=== PATIENT | male | born 1945 | race Caucasian/White ===

== ENCOUNTER 2019-06-12 10:04 | Outpatient (CLI) | payer OTHER, SELFPAY ==
--- NOTE | 2019-06-12 11:30 | CT_ITS ---
WS: [id number] CT THORACIC SPINE HISTORY: Thoracic mass TECHNIQUE: Contiguous 2.5 mm axial images are reviewed to thoracic spine. Images are reformatted in s agittal and coronal planes. All CT scans at [facility] use at least one of these dose opt imization techniques: automated exposure control; mA and/or kV adjustment per patient size (includes targeted exams where dose is matched to clinical indication); or iterative reconstruction. DLP: 1162.75 mGycm COMPARISON: None available. Slight increase in thoracic kyphosis. Mild disc space narrowing and desiccation throughout the thorac ic spine. There is mild anterior wedging of T3 and T12. No acute fracture. There is a soft tissue mass extending over a length of 3.3 cm centered at the T8-9 LEFT paravertebral soft tissues with osseous destruction of the rib. Mass extends transversely by 2.0 cm and anterior p osterior by 3.5 cm. Mass begins with bone destruction involving the LEFT posterior T8 vertebral body and extends into the paravertebral soft tissues and involves the LEFT eighth rib with bone destructio n and expansion. Soft tissue mass extends into the T8-9 foramina and inferior to the disc level. Ther e is invasion and destruction of the posterior LEFT lateral T9 vertebral body with soft tissue extend ing into the T9-10 foramina. The LEFT ninth rib is intact. There is destruction of the LEFT T8 and T9 lamina and transverse processes. Mass extends posteriorly into the paravertebral soft tissue. Multilevel mild foraminal narrowing throughout the thoracic spine. No cord compression. Soft tissue t umor extending through the T8-9 and T9-10 LEFT foramen without cord contact. There is a very small am ount of fat the tumor within the T9-T10 foramina from the cord. Significant motion artifact due to breathing and pain. The visualized lungs are clear. No adenopathy is identified. CT/CT thoracic spin wo con* [id number] IMPRESSION: 1. Large destructive, expansile mass centered in the LEFT paravertebral soft t issues and osseous structures about the T8-9 level. Mass measures 3.3 x 2.0 x 3 .5 cm with destruction of the lateral T8 and T9 vertebral bodies, lamina and LE FT transverse processes and the eighth rib. 2. Soft tissue tumor extends into the foramina of T8-9 and T9-10 with near con tact on the lateral thecal sac. Metastatic disease is most likely in this age g roup. Consider renal, thyroid and lung cancer. Plasmacytoma also a possibility. 3. No cord compression at this time. 4. CT-guided biopsy would be possible.
== END 2019-06-12 10:05 | disposition home or self-care (01) ==
PROVIDERS: Family Provider Family Medicine; PCP Family Medicine; Visit Provider Licensed Practical Nurse
DX: C41.2 Malignant neoplasm of vertebral column (principal)
CPT/HCPCS: 72128

== ENCOUNTER 2019-06-14 07:56 | Outpatient (CLI) | payer OTHER, SELFPAY ==
[2019-06-13 11:59] VITALS: BMI 41.4
[2019-06-14] VITALS (9 sets, daily range): BP systolic 134–177; BP diastolic 74–95; PULSE 85–96; RESP 16–18; TEMP 37–37.1; O2SAT 92–98
--- NOTE | 2019-06-14 08:00 | CT_ITS ---
NOTE: Report was unsigned for reason: Order was edited. Original Signature date and time was: 06/14/19 2236 WS: [id number] CT GUIDED BIOPSY LEFT PARASPINAL MASS. HISTORY: malignant neoplasm of vertebral spine Procedure, risks, and complications are explained to the patient. Consent was obtained. Skin is cleansed with ChloraPrep and anesthetized with 1% buffered lidocaine. Patient is monitored as conscious sedation is utilized. Dose: 599.54 mGy-cm. Lesion over the T8-8-9 vertebral body is localized. Dermatome is made. 18-gauge Temno needle is inserted into the paraspinal mass. Multiple core biopsies are obtained. After the third biopsy the lesion started bleeding and no additional biopsies were performed. Specimen placed in sterile saline and sent to pathology. No complications were encountered. Patient will be observed for greater than one hour postprocedure for abnormalities. [facility] CT/CT guided biopsy [id number] IMPRESSION: Uncomplicated CT-guided biopsy of a LEFT paraspinal soft tissue mass. Pathology results are pending.
[2019-06-14] MEDS: sodium chloride 0.9% 1,000 ML 30 ML (08:36)
[2019-06-14 09:15] LABS: INR 0.97 (0.8-1.2); Partial Thromboplastin Time 27.4 SECONDS (23.9-36.7)
[2019-06-14] MEDS: midazolam 1 mg/mL INJ 5 ML IVP ×2 (09:38→09:41)
[2019-06-14] MEDS: HYDROcodone-acetaminophen 10-325 mg Tablet 1 TAB PO (10:35)
== END 2019-06-14 07:57 | disposition home or self-care (01) ==
PROVIDERS: Family Provider Family Medicine; PCP Family Medicine; Visit Provider Licensed Practical Nurse
DX: C41.2 Malignant neoplasm of vertebral column (principal)
CPT/HCPCS: 20225; 36415; 77012; 85610; 85730; 88309; 96374; 96375; 99212; J2250; J3010; J7030

== ENCOUNTER 2019-06-19 09:41 | Outpatient (CLI) | payer OTHER, SELFPAY ==
--- NOTE | 2019-06-19 09:47 | USCV_ITS ---
Chang Carr Age: 74 Gender: M : 1945 Exam Date: 06/19/2019 10:03 Ordering Phys: Thais Sibley Technologist: Ellis Stewart Exam Location: [facility] – [place] Indication: HISTORY: Varicose veins. PROCEDURES: Bilateral duplex Venous Insufficiency study of the Deep and Superficial systems was carried out according to normal protocol with the patient in supine positon for deep system and dependent position for the superficial system. FINDINGS: There is no evidence of bilateral deep vein thrombosis. No evidence of superficial thrombosis in the bilateral saphenous system. No evidence of reflux was noted in the bilateral deep venous system. No venous reflux noted in the RIGHT small saphenous vein. Venous reflux is demonstrated in the RIGHT greater saphenous vein with a spectral Doppler display of greater than 500 milliseconds at the PROX TO BELOW THE KNEE LEVELS No venous reflux noted in the LEFT small saphenous vein. Venous reflux is demonstrated in the LEFT greater saphenous vein with a spectral Doppler display of greater than 500 milliseconds at the PROX TO DIST LEVELS. CONCLUSIONS 1. No DVT in the above-mentioned identifiable veins 2. Significant venous reflux of greater than 500 ms were noted throughout the greater saphenous vein on the right side. The venous segments where greater than 1 cm deep from the surface at the above- knee level. But at the below-knee level, it was the less than 1.0 cm deep. The venous diameter varies anywhere from 0.42 to 0.89 cm. 3. Significant venous reflux of greater than 500 ms were noted in the greater saphenous vein on the left side at the above-knee levels. These venous segments were greater than 1 cm deep from the surface. The venous diameter varies anywhere from 0.65 to 0.77 cm in diameter. 4. No significant refluxes were noted in the deep veins or in the small saphenous venous systems 5. Venous dimensions, depth from the surface and reflux times are as mentioned above. Dr Naomi Samuels MD [facility] (Electronically Signed) Final Date: 21 June 2019 06:05 S
== END 2019-06-19 09:42 | disposition home or self-care (01) ==
LOC: RAD 09:43
PROVIDERS: Family Provider Family Medicine; PCP Family Medicine; Visit Provider Nurse Practitioner Family
DX: I83.813 Varicose veins of bilateral lower extremities with pain (principal); I87.2 Venous insufficiency (chronic) (peripheral)
CPT/HCPCS: 93970

== ENCOUNTER 2019-06-22 08:42 | Outpatient (CLI) | payer OTHER, SELFPAY ==
--- NOTE | 2019-06-22 12:45 | ONC FU_ITS ---
Dr. Arriaza follow up note Patient: Chang Carr Unit #: [id number]: 1945 Dicatated By: Chuy Arriaza M.D.Date of Visit:Jun 22, 2019 Onc Med Follow-up/Prog Note History of Present Illness: Mr. Chang Carr, is a 74-year-old gentleman with history of basal cell carcinoma involving left shoulder and left anterior shoulder status post excision then history of lymphocytic infiltrate of the skin involving dorsum of the right hand possibility of T-cell lymphoma was not excluded, for which he was referred to Dr. Manning , medical oncologist in [place], as per patient special blood test were performed twice on 6 monthly basis and no abnormality was found. And then on 11/21/2017 during his follow-up dermatology exam he was found to have right lateral abdominal skin lesion biopsy was obtained and final pathology report showed changes compatible with lymphocytic infiltration off unknown biological significance. As per patient on 04/16/2019, 1 morning he got up with severe mid back pain and pain was non-radiating type no lower extremity weakness no urine or stool incontinence, no history of trauma to his back patient said he has seen chiropractor 1 time without much help then he was seen by Dr. Osei and MRI scan of spine was ordered but patient could not lay flat on his back so it was rescheduled finally on 05/28/2019 he underwent MRI scan of thoracic spine which showed mass in paraspinal area involving left T9 costovertebral joint, worrisome for neoplastic process/metastasis. And the mass approximates the inferior margin of exiting left T8 nerve root. In effacement of normal fat signal within the left T9-T10 neuroforamen. Suspicious for tumor extension which would affect course of exiting left T9 nerve root. CT scan of thoracic spine was done on 06/12/2019 showed large destructive, expansile mass centered in left paravertebral soft tissue and osseous structures about the T8-9 level. Mass measures 3.3 x 2 x 3.5 cm with a destruction of lateral T8 and T9 vertebral bodies, lamina and left transverse processes and eighth rib. Soft tissue tumor extends into for men of T8-9 and T9-10 with near contact on the lateral thecal sac. 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 Positive for CD20, CD10 (weak) BCL 6, and p63 and Ki-67 90% of the tumor cell positive. Tumor cell negative for CD3, CD5, BCL 2, cyclin D1 and MYC, EB, ER, CD30, And kappa and lambda light chains. Mum 1, CK 7 CK 20, melanin, HMB-45 and TTF-1 ,NAPSIN A and chromogranin No flow cytometry has been done. FISH studies are pending to rule out double hit type lymphoma or to exclude Burkitt's lymphoma. Patient denies any B symptoms like no night sweats, no weight loss, no peripheral lymphadenopathy, no recurrent fevers. Vision denies any hemoptysis or hematemesis, patient denies any melena or hematochezia, patient denies any abdominal fullness, patient denies any lower extremity paresthesia or numbness. Patient has history of chronic lower extremity edema and chronic wounds involving lower extremity above both ankles anteriorly, recently done venous Doppler study on 06/19/2019 showed no evidence of DVT but venous insufficiency Patient has raised multiple skin lesions around left knee, as per patient he underwent biopsy and as per patient it was due to arthritis. Medications: AmLODIPine Besylate 1 Tablet (of 5 mg) Oral daily, Qsagwridkf-GWPT-[id number] 2 Tablet Oral b.i.d., Flonase 2 spray(s) (of 50 mcg/act) Suspension Nasal daily, Furosemide 1 Tablet (of 40 mg) Oral daily, HydroCHLOROthiazide 1 Tablet (of 25 mg) Oral daily, HydrOXYzine Pamoate 1 Capsule (of 25 mg) Oral t.i.d., Losartan Potassium 1 Tablet (of 100 mg) Oral daily, Omeprazole 1 Tablet (of 20 mg) Tablet, enteric coated Oral b.i.d., Venlafaxine HCl ER 1 Capsule (of 150 mg) Capsule SR 24 HR Oral daily Allergies: IV Contrast dye Review of Systems: Constitutional - Appetite is good and weight is stable. No fever, chills, hot flashes, or night sweats. Energy level is good, ENMT - No sinus congestion/drainage. No mouth sores. No sore throat or difficulty swallowing, Hematologic/Lymphatic - No abnormal bruising or bleeding, Respiratory - No shortness of breath. No cough. No pleuritic pain or hemoptysis, Cardiovascular - No angina pain. No palpitations, Gastrointestinal - No nausea or vomiting. No heartburn or acid reflux. No diarrhea or constipation. No blood in the stool or black stools, Genitourinary (M) - No dysuria or hematuria. No urinary frequency. No urgency or incontinence, Musculoskeletal - Positive for back pain, Neurologic - No headache or dizziness. No numbness/paresthesias or other focal neurologic symptoms, Psychiatric - No anxiety or depression. Positive for insomnia. Vital Signs: Performed on Jun 22, 2019 09:27 Height - 70.00 in Weight - 260.8 lbs (HIGH) BSA - 2.34 sq.m BMI - 37.42 (HIGH) Temperature - 97.8 F (LOW) Pulse - 88 /min Respiration - 18 /min BP - 157/74 mm(hg) (HIGH) O2 Sat - 94 % (LOW) Pain - 6 Performance Status: 0 - Fully active, able to carry on all predisease activities without restrictions. (ECOG) Physical Examination: ENMT - No oral exudates, ulcers, masses, thrush or mucositis. Oropharynx clear. Tongue normal, Hematologic/Lymphatic - No petechiae or purpura. No tender or palpable lymph nodes in the cervical, supraclavicular, axillary or inguinal area, Respiratory - Lungs are clear to auscultation without rhonchi or wheezing, Cardiovascular - Regular rate and rhythm of heart, Abdomen - Non-tender, non-distended, Good bowel sounds. No guarding or rebound tenderness. No pulsatile masses, Extremities - 3+ edema bilaterally, raised skin lesion around the left knee. Lab/Imaging: Most recent lab results are not available for this patient. 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 No flow cytometry done. FISH studies to rule out double hit type lymphoma or to exclude Burkitt's lymphoma is pending MRI scan of the thoracic spine done on 2019 showed mass centered left T9 costovertebral joint, worrisome for neoplastic process/metastasis mass approximates the inferior margin of exiting left T8 nerve root. In effacement of normal fat signal within left T9-T10 neuralforamen, suspicious for tumor extension. CT scan of thoracic spine done on 06/12/2019 showed large destructive, expansile mass centered in the left paravertebral soft tissue and osseous structures about T8-9 level. Mass measures 3.3 x 2 x 3.5 cm with destruction of the lateral T8 and T9 vertebral bodies, lamina and left transverse processes and eighth rib. Next Soft tissue tumor extends into the foramina of T8-9 and T9-10 with a near contact on the lateral thecal sac. Mid back pain History of chronic lower extremity edema bilaterally with chronic ulceration involving bilateral ankle anteriorly. Venous Doppler study done on 06/19/2019 showed no evidence of DVT but venous insufficiency. Lymphocytic infiltration of unknown biological significance per skin biopsy from right lateral abdomen done on 11/21/2017 and in the past skin biopsy from dorsum of right hand also showed atypical lymphocytes infiltrates possibilities include T cell lymphoproliferative disorder. No associated B symptoms and peripheral lymphadenopathy Patient has seen medical oncologist Dr. manning in [facility], who did some blood work up twice 6 months apart, as per patient it was negative. History of basal cell carcinoma involving left shoulder status post excision Plan: Discussed with patient regarding his disease status and further plans and treatment options. Patient is in moderate to severe distress due to mid back pain and for the last few weeks has been sleeping in the chair rather than in the bed. But has no neurological signs symptoms. Patient was told that pathology workup is in progress e.g. FISH is pending and we will discuss with case with pathology for confirmation if patient has aggressive form of high-grade B-cell lymphoma e.g. double hit type or Burkitt's then it would be better if he is treated at tertiary care center with intense chemotherapy regimens on the other hand if double hit and Burkitt's lymphoma is ruled out then we will consider systemic therapy here In the meantime we will schedule him for CT PET scan to complete staging workup and also obtain echo to check his ejection fraction In the meantime because of severe pain and patient is in moderate to severe distress we will give him prescription for Percocet he will take 1-2 tablets 4-6 hour as needed and also give him course of high-dose steroids prednisone 100 mg with nystatin swish and spit by mouth daily for 4 days to minimize edema in thoracic spine thus to improve pain and prevent further neurological complication. Patient was advised to avoid trauma or sudden movement and in case he has worsening of pain or urine or stool incontinence or any neurological signs he need to go to emergency room immediately for evaluation. Patient will return to clinic after CT PET scan and echocardiogram for further discussion and we will also consider referred to radiation oncology. Signed By: Chuy Arriaza M.D. <<Signature on File>>
== END 2019-06-22 08:43 | disposition home or self-care (01) ==
PROVIDERS: Family Provider Family Medicine; PCP Family Medicine; Referring Provider Licensed Practical Nurse; Visit Provider Internal Medicine Hematology & Oncology
DX: C85.19 Unspecified B-cell lymphoma, extranodal and solid organ sites (principal); G89.3 Neoplasm related pain (acute) (chronic); I87.2 Venous insufficiency (chronic) (peripheral); R60.0 Localized edema; M19.90 Unspecified osteoarthritis, unspecified site; Z79.899 Other long term (current) drug therapy; Z85.828 Personal history of other malignant neoplasm of skin
CPT/HCPCS: 99214

== ENCOUNTER 2019-06-27 13:19 | Outpatient (RCR) | payer OTHER, SELFPAY ==
--- NOTE | 2019-06-27 13:23 | USCV_ITS ---
Chang Carr Age: 74 Gender: M : 1945 Exam Date: 06/27/2019 13:21 Ordering Phys: Thais Sibley Technologist: Exam Location: [facility] – [place]_ Indication: non healing ulcer RIGHT LEFT Brachial 123.00 mmHg Brachial 125.00 mmHg Pressure (mmHg) Waveform Pressure (mmHg) Waveform 155.00 Above Knee 170.00 163.00 Below Knee 160.00 173.00 [employer] 170.00 147.00 DPA 146.00 1.38 Ankle/Brachial Index 1.36 144.00 Pre-Exercise Toe Pressure 124.00 1.15 Pre-Exercise Toe/Brachial Index 0.99 FINDINGS Supernormal resting ABIs bilaterally Normal TBIs bilaterally Normal PVR waveforms bilaterally CONCLUSIONS No evidence of any significant arterial obstruction, based on the above findings. Dr Naomi Samuels MD [facility] (Electronically Signed) Final Date: 28 June 2019 08:20 S
== END 2019-07-10 23:59 | disposition home or self-care (01) ==
LOC: RAD 13:19
PROVIDERS: Family Provider Family Medicine; PCP Family Medicine; Visit Provider Nurse Practitioner Family
DX: M79.605 Pain in left leg (principal); M79.604 Pain in right leg; I87.2 Venous insufficiency (chronic) (peripheral); L97.822 Non-pressure chronic ulcer of other part of left lower leg with fat layer exposed; Z51.89 Encounter for other specified aftercare; I10 Essential (primary) hypertension; E11.9 Type 2 diabetes mellitus without complications; M19.90 Unspecified osteoarthritis, unspecified site
CPT/HCPCS: 93923; 99204; 99212; A6545; G0463

== ENCOUNTER 2019-07-03 09:42 | Outpatient (CLI) | payer OTHER, SELFPAY ==
--- NOTE | 2019-07-03 10:03 | USCV_ITS ---
Chang Carr Age: 74 Gender: M : 1945 Exam Date: 07/03/2019 10:30 Ordering Phys: Chuy Arriaza MD Technologist: Ellis Stewart [place] [facility] [place]: BASELINE FOR HIGH RISK MED BP: 125 / 74 HR: 77 Rhythm: Sinus Technical Quality: Fair MEASUREMENTS (Male / Female) Normal Values 2D ECHO LV Diastolic Diameter PLAX 4.8 cm 4.2 - 5.9 / 3.9 - 5.3 cm LV Systolic Diameter PLAX 2.5 cm IVS Diastolic Thickness 1.1 cm 0.6 - 1.0 / 0.6 - 0.9 cm IVS Systolic Thickness 1.4 cm LVPW Diastolic Thickness 1.1 cm 0.6 - 1.0 / 0.6 - 0.9 cm LVPW Systolic Thickness 1.2 cm LVOT Diameter 2.3 cm LV Ejection Fraction 2D Teich 79.6 % LV Ejection Fraction MOD 2C 42.3 % LV Ejection Fraction 2C AL 40.0 % LA Diameter 4.4 cm LA Width 4.2 cm LA Height 5.0 cm RA Width 3.5 cm RA Height 4.6 cm Aorta at Sinotubular Diameter 3.3 cm M-MODE LV Diastolic Diameter MM 5.6 cm 4.2 - 5.9 / 3.9 - 5.3 cm LV Systolic Diameter MM 3.6 cm LV Ejection Fraction MM Teich 65.7 % IVS Diastolic Thickness MM 1.1 cm 0.6 - 1.0 / 0.6 - 0.9 cm IVS Systolic Thickness MM 1.7 cm LVPW Diastolic Thickness MM 1.6 cm 0.6 - 1.0 / 0.6 - 0.9 cm LVPW Systolic Thickness MM 1.8 cm RV Diastolic Diameter MM 1.8 cm Aortic Annulus Diameter 3.7 cm LA Ao Ratio MM 1.2 MV E Point Septal Separation 1.6 cm DOPPLER AV Peak Velocity 147.0 cm/s LVOT Peak Velocity 94.0 cm/s AV Area Cont Eq vti 3.2 cm squared AV Area Cont Eq pk 2.6 cm squared MV Area PHT 5.0 cm squared Mitral E to A Ratio 0.8 MV E' Velocity 11.0 cm/s Mitral E to MV E' Ratio 8.3 Mitral E to LV E' Lateral Ratio 6.8 Mitral E to LV E' Septal Ratio 10.7 TR Peak Velocity 277.0 cm/s TR Peak Gradient 30.6 mmHg TV Peak E Velocity 90.0 cm/s Right Atrial Pressure 3.0 mmHg Pulmonary Artery Systolic Pressu 33.7 mmHg PV Peak Velocity 85.0 cm/s FINDINGS Left Ventricle Normal left ventricular size and systolic function, EF 65%. Mild left ventricular hypertrophy. No regional wall motion abnormalities. Right Ventricle Mildly increased right ventricular size. Right Atrium Mildly increased right atrial size. Left Atrium Normal left atrial size. Mitral Valve Thickened mitral valve. Mild mitral valve regurgitation. Aortic Valve Thickened aortic valve. Tricuspid Valve Trace tricuspid valve regurgitation. Pulmonic Valve Trace pulmonary valve regurgitation. Pericardium No pericardial effusion. Aorta Normal ascending aorta dimension. CONCLUSIONS Normal left ventricular size and systolic function, EF 65%. Mild left ventricular hypertrophy. No regional wall motion abnormalities. Type I diastolic dysfunction. Mildly dilated right atrium right ventricle. Thickened aortic and mitral valves. Mild mitral valve regurgitation. Trace tricuspid and pulmonic valve regurgitation. There is no pericardial effusion. There are no intracardiac masses. No previous study is available for comparison. Dr Naomi Samuels MD [facility] (Electronically Signed) Final Date: 04 July 2019 09:53 S
== END 2019-07-03 09:43 | disposition home or self-care (01) ==
LOC: US 09:42
PROVIDERS: Family Provider Family Medicine; PCP Family Medicine; Visit Provider Internal Medicine Hematology & Oncology
DX: Z79.899 Other long term (current) drug therapy (principal); I08.1 Rheumatic disorders of both mitral and tricuspid valves
CPT/HCPCS: 93306

== ENCOUNTER 2019-07-05 13:47 | Outpatient (CLI) | payer OTHER, SELFPAY ==
[2019-07-04 16:53] LABS: Basophils % 0.4 %; Eosinophils # 0.1 10^3/uL (0.0-0.8); Eosinophils % 1.5 %; Hematocrit 40.5 % (42.0-52.0); Hemoglobin 13.1 g/dL (11.7-16.6); Lymphocytes # 2.4 10^3/uL (0.8-4.8); Lymphocytes % 29.8 %; Mean Corpuscular HGB Conc 32.3 g/dL (30.0-36.0); Mean Corpuscular Hemoglobin 29.3 pg (28.0-34.0); Mean Corpuscular Volume 90.6 fL (80-94); Mean Platelet Volume 9.7 fL (7.4-10.4); Monocytes # 0.8 10^3/uL (0.2-0.9); Monocytes % 10.1 %; Neutrophils # 4.7 10^3/uL (1.8-7.7); Nucleated Red Blood Cells % 0 %; Platelet Count 248 10^3/cmm (130-400); Red Blood Count 4.47 10^6/uL (4.1-5.3); Red Cell Distribution Width 13.6 % (12.1-15.1); White Blood Count 8.1 10^3/uL (4.0-10.0)
[2019-07-04 17:01] LABS: Alanine Aminotransferase 27 U/L (0-41); Albumin Level 4.1 g/dL (3.5-5.2); Alkaline Phosphatase 183 IU/L (40-130); Anion Gap 16.2 (5-19); Aspartate Amino Transferase 25 U/L (0-40); Blood Urea Nitrogen 18 mg/dL (8-23); Calcium 9.8 mg/dL (8.5-10.5); Carbon Dioxide 24 mmol/L (22-29); Chloride 97 mmol/L (98-107); Glucose 104 mg/dL (65-115); Osmolality Calculated 273 mOsm/kg (285-295); Potassium 4.2 mmol/L (3.5-5.1); Sodium 133 mmol/L (136-145); Total Bilirubin 0.2 mg/dL (0.15-1.2); Total Protein 7.1 g/dL (6.6-8.7)
--- NOTE | 2019-07-05 16:11 | ONC FU_ITS ---
Dr. Arriaza follow up note Patient: Chnag Carr Unit #: [id number]: [id number] Dicatated By: Chuy Arriaza M.D.Date of Visit:Jul 05, 2019 Onc Med Follow-up/Prog Note History of Present Illness: Mr. Chang Carr, is a 74-year-old gentleman with history of basal cell carcinoma involving left shoulder and left anterior shoulder status post excision then history of lymphocytic infiltrate of the skin involving dorsum of the right hand possibility of T-cell lymphoma was not excluded, for which he was referred to Dr. Manning , medical oncologist in [place], as per patient special blood test were performed twice on 6 monthly basis and no abnormality was found. And then on 11/21/2017 during his follow-up dermatology exam he was found to have right lateral abdominal skin lesion biopsy was obtained and final pathology report showed changes compatible with lymphocytic infiltration off unknown biological significance. As per patient on 04/16/2019, 1 morning he got up with severe mid back pain and pain was non-radiating type no lower extremity weakness no urine or stool incontinence, no history of trauma to his back patient said he has seen chiropractor 1 time without much help then he was seen by Dr. Osei and MRI scan of spine was ordered but patient could not lay flat on his back so it was rescheduled finally on 05/28/2019 he underwent MRI scan of thoracic spine which showed mass in paraspinal area involving left T9 costovertebral joint, worrisome for neoplastic process/metastasis. And the mass approximates the inferior margin of exiting left T8 nerve root. In effacement of normal fat signal within the left T9-T10 neuroforamen. Suspicious for tumor extension which would affect course of exiting left T9 nerve root. CT scan of thoracic spine was done on 06/12/2019 showed large destructive, expansile mass centered in left paravertebral soft tissue and osseous structures about the T8-9 level. Mass measures 3.3 x 2 x 3.5 cm with a destruction of lateral T8 and T9 vertebral bodies, lamina and left transverse processes and eighth rib. Soft tissue tumor extends into for men of T8-9 and T9-10 with near contact on the lateral thecal sac. 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 Positive for CD20, CD10 (weak) BCL 6, and p63 and Ki-67 90% of the tumor cell positive. Tumor cell negative for CD3, CD5, BCL 2, cyclin D1 and MYC, EB, ER, CD30, And kappa and lambda light chains. Mum 1, CK 7 CK 20, melanin, HMB-45 and TTF-1 ,NAPSIN A and chromogranin No flow cytometry has been done. FISH studies are pending to rule out double hit type lymphoma or to exclude Burkitt's lymphoma. Patient denies any B symptoms like no night sweats, no weight loss, no peripheral lymphadenopathy, no recurrent fevers. Vision denies any hemoptysis or hematemesis, patient denies any melena or hematochezia, patient denies any abdominal fullness, patient denies any lower extremity paresthesia or numbness. Patient has history of chronic lower extremity edema and chronic wounds involving lower extremity above both ankles anteriorly, recently done venous Doppler study on 06/19/2019 showed no evidence of DVT but venous insufficiency Patient has raised multiple skin lesions around left knee, as per patient he underwent biopsy and as per patient it was due to arthritis.CT PET scan done on showed T8 vertebral body involvement and L4 destructive lesion and 5 x 2.9 cm single hepatic lesion no lymphadenopathy seen. FISH showed no evidence of double hit or Burkitt's lymphoma e.g. negative for MYC, BCL6 rearrangement. Negative for T(14;18) Echocardiogram done on 06/27/2019 showed ejection fraction 65% Came for follow-up, felt much better with high-dose prednisone, now he could sleep better, not requiring hydrocodone on a regular basis. No fever or chills, no nausea or vomiting no diarrhea constipation no night sweats, no lower extremity weakness or numbness. No urine or stool incontinence. Medications: AmLODIPine Besylate 1 Tablet (of 5 mg) Oral daily, Dxljakfspi-XCTH-Vkycnjpr 2 Tablet Oral b.i.d., Flonase 2 spray(s) (of 50 mcg/act) Suspension Nasal daily, Furosemide 1 Tablet (of 40 mg) Oral daily, HydroCHLOROthiazide 1 Tablet (of 25 mg) Oral daily, HYDROcodone-Acetaminophen 1 - 2 Tablet (of 5-325 mg) Oral q 4 to 6 hours PRN, HydrOXYzine Pamoate 1 Capsule (of 25 mg) Oral t.i.d., Losartan Potassium 1 Tablet (of 100 mg) Oral daily, Omeprazole 1 Tablet (of 20 mg) Tablet, enteric coated Oral b.i.d., Venlafaxine HCl ER 1 Capsule (of 150 mg) Capsule SR 24 HR Oral daily Allergies: IV Contrast dye Review of Systems: Constitutional - Appetite is good and weight is stable. No fever, chills, hot flashes, or night sweats. Energy level is good, ENMT - No sinus congestion/drainage. No mouth sores. No sore throat or difficulty swallowing, Hematologic/Lymphatic - No abnormal bruising or bleeding, Respiratory - No shortness of breath. No cough. No pleuritic pain or hemoptysis, Cardiovascular - No angina pain. No palpitations, Gastrointestinal - No nausea or vomiting. No heartburn or acid reflux. No diarrhea or constipation. No blood in the stool or black stools, Genitourinary (M) - No dysuria or hematuria. No urinary frequency. No urgency or incontinence, Musculoskeletal - Positive for back pain, Neurologic - No headache or dizziness. No numbness/paresthesias or other focal neurologic symptoms, Psychiatric - No anxiety or depression. Positive for insomnia. Vital Signs: Performed on Jul 05, 2019 13:54 Height - 70.00 in Weight - 251.2 lbs (LOW) BSA - 2.30 sq.m BMI - 36.04 (HIGH) Temperature - 98.1 F (LOW) Pulse - 76 /min Respiration - 22 /min BP - 146/80 mm(hg) (HIGH) O2 Sat - 96 % Pain - 5 Performance Status: 0 - Fully active, able to carry on all predisease activities without restrictions. (ECOG) Physical Examination: ENMT - No oral exudates, ulcers, masses, thrush or mucositis. Oropharynx clear. Tongue normal, Respiratory - Lungs are clear to auscultation without rhonchi or wheezing, Cardiovascular - Regular rate and rhythm of heart, Abdomen - Non-tender, non-distended,Good bowel sounds. No guarding or rebound tenderness. No pulsatile masses, Extremities - no edema. Lab/Imaging: Test performed on Jul 04, 2019 12:35 Sodium 133 mmol/L Potassium 4.2 mmol/L Chloride 97 mmol/L CO2 24 mmol/L Anion Gap 16.2 BUN 18 mg/dL Creatinine 0.9 mg/dL Cr Clearance (Est) 124.1400 mL/min Glucose 104 mg/dL Calcium 9.8 mg/dL Protein, Total 7.1 g/dL Albumin 4.1 g/dL Globulin 3.0 g/dL Bilirubin, Total 0.2 mg/dL ALT (SGPT) 27 U/L AST (SGOT) 25 U/L Alkaline Phosphatase 183 IU/L WBC 8.1 10 3/uL RBC 4.47 10 6/uL HGB 13.1 g/dL HCT 40.5 % MCV 90.6 fL MCH 29.3 pg MCHC 32.3 g/dL RDW 13.6 % Platelet Count 248 10 3/cmm MPV 9.7 fL Neutrophils 4.7 10 3/uL Lymphocytes 2.4 10 3/uL Monocytes 0.8 10 3/uL Eosinophils 0.1 10 3/uL Basophils 0.0 10 3/uL Neutrophil % 58.0 % Lymphocyte % 29.8 % Monocyte % 10.1 % Eosinophil % 1.5 % Basophils % 0.4 % Impression: High-grade B-cell lymphoma, with blastoid morphology, but CT-guided biopsy of left paraspinal mass done on 06/24/2019 which showed 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 No flow cytometry done. FISH studies ruled out double hit type lymphoma or to exclude Burkitt's lymphoma e.g. negative for MYC and BCL 6 rearrangement and also negative for T(14;18) MRI scan of the thoracic spine done on 2019 showed mass centered left T9 costovertebral joint, worrisome for neoplastic process/metastasis mass approximates the inferior margin of exiting left T8 nerve root. In effacement of normal fat signal within left T9-T10 neuralforamen, suspicious for tumor extension. CT scan of thoracic spine done on 06/12/2019 showed large destructive, expansile mass centered in the left paravertebral soft tissue and osseous structures about T8-9 level. Mass measures 3.3 x 2 x 3.5 cm with destruction of the lateral T8 and T9 vertebral bodies, lamina and left transverse processes and eighth rib. Next Soft tissue tumor extends into the foramina of T8-9 and T9-10 with a near contact on the lateral thecal sac. Echo done on 07/03/2019 showed ejection fraction 65% and CT PET scan showed involvement of T8 and L4 and single lesion in the liver e.g. clinical stage IV E (liver involvement) Mid back pain History of chronic lower extremity edema bilaterally with chronic ulceration involving bilateral ankle anteriorly. Venous Doppler study done on 06/19/2019 showed no evidence of DVT but venous insufficiency. Lymphocytic infiltration of unknown biological significance per skin biopsy from right lateral abdomen done on 11/21/2017 and in the past skin biopsy from dorsum of right hand also showed atypical lymphocytes infiltrates possibilities include T cell lymphoproliferative disorder. No associated B symptoms and peripheral lymphadenopathy Patient has seen medical oncologist Dr. manning in [facility], who did some blood work up twice 6 months apart, as per patient it was negative. History of basal cell carcinoma involving left shoulder status post excision Plan: Discussed with patient regarding his labs white blood count 8.1 hemoglobin 13.1 crit 40.5 platelets 248,000 CMP within normal limits and echocardiogram showed ejection fraction 65% and CT PET scan shows multiple sites including T4 and T8 involvement and single lesion in the liver indicating extranodal involvement. And FISH studies ruled out double-headed and Burkitt's lymphoma. Case was discussed with pathologist now especially confirmed patient has high-grade B-cell lymphoma. Based on CT PET scan finding patient has a very unusual presentation e.g. no lymphadenopathy 2 separate sites in spine involvement and a single lesion in the liver. Patient has no history of immunocompromise status e.g. no HIV or history of hepatitis. No history of blood transfusion At this point we will do hepatitis profile and HIV testing. Also order Port-A-Cath placement to facilitate chemotherapy Role of systemic chemotherapy with R CHOP was discussed all the side effect possible benefits associated with Rituxan/Cytoxan/Adriamycin/vincristine/prednisone were discussed in detail including but not limited to bone marrow suppression, cardiac toxicity especially with Adriamycin, neurotoxicity especially with vincristine and hyperglycemia oral thrush especially with steroids and long-term risk of leukemia/myelodysplasia were mentioned. Further teaching done by chemotherapy nurse. We'll obtain approval from his insurance prior to the treatment. Plan is to give 3 cycles of R CHOP followed by CT PET scan to assess the response and patient has complete response then we may consult radiation oncology for possible radiation therapy to spinal involved area. We will also consider Xgeva on monthly basis to prevent skeletal related complications. We will also obtain sonogram of liver after first or second cycle of chemotherapy to see the response as high-grade B-cell lymphoma are very chemosensitive and if there is no response then we may consider liver biopsy to rule out other pathology. Patient will return to clinic 1 week after chemotherapy initiated with CBC CMP. Patient was advised in case he has any evidence of sudden pain in the back or lower extremity weakness or urine or stool incontinence and he need to call us or go to emergency room immediately. Signed By: Chuy Arriaza M.D. <<Signature on File>>
== END 2019-07-05 13:48 | disposition home or self-care (01) ==
LOC: ONCMED 13:48
PROVIDERS: Family Provider Family Medicine; PCP Family Medicine; Visit Provider Internal Medicine Hematology & Oncology
DX: C83.59 Lymphoblastic (diffuse) lymphoma, extranodal and solid organ sites (principal); I87.2 Venous insufficiency (chronic) (peripheral); G89.3 Neoplasm related pain (acute) (chronic); M19.90 Unspecified osteoarthritis, unspecified site; Z79.891 Long term (current) use of opiate analgesic; Z79.899 Other long term (current) drug therapy; Z98.890 Other specified postprocedural states; Z85.828 Personal history of other malignant neoplasm of skin
CPT/HCPCS: 80053; 85025; 99214

== ENCOUNTER 2019-07-09 09:16 | Day surgery (SDC) | payer OTHER, SELFPAY ==
[2019-07-09 09:33] VITALS: BMI 35.9
[2019-07-09 09:51] VITALS: BP 137/79; PULSE 86; RESP 20; TEMP 36.4; O2SAT 94
[2019-07-09] MEDS: sodium chloride 0.9% 1,000 ML 30 ML IV (09:52)
--- NOTE | 2019-07-09 10:06 | ANES.PREANE2 ---
Pre-Anesthetic Assessment Pre-Anesthetic Assessment: Height/Weight: Height 1.78 m Weight 113.398 kg Temp Pulse Resp BP Pulse Ox 97.5 F L 86 20 H 137/79 94 07/09/19 09:51 07/09/19 09:51 07/09/19 09:51 07/09/19 09:51 07/09/19 09:51 Preop Diagnosis: Malignancy vertebral column Proposed Procedure: Operation Date: 07/09/19 11:00 Proposed Procedures p Portacath Placement 07423 C41.2(Not Applicable) - Chuy Vidal MD Familial anesthetic complications: none Was Beta Kamran taken within 24 hours: N/A Last intake: Intake Last Liquid Date 07/08/19 Last Liquid Time 20:00 Last Solid Date 07/08/19 Last Solid Time 20:00 Social: Social History: No alcohol and No tobacco Exam: Pre-Anes Outpt Exam: alert, oriented x 3, clear to auscultation bilaterally and regular rate & rhythm Airway: Cervical ROM: WNL MP: 3 Dentition: Full Pulmonary: Pulmonary: None reported CV/HEM: CV/HEM: HTN : : None reported Hepatic: Comments: cancer in liver and spine GI: GI: GERD Metabolic: Metabolic: Morbid obesity Musc/skel: Musc/skel: Lower Back Pain Comments: l,4,l5 s1 laminectomy Neuropsych: Neuropsych: None reported Anesthetic Plan: ASA status: 3 Anesthesia: MAC Risk of > 500 ml blood loss (7ml/kg in children): No Meds/Allergies Current Medications: Current Medications Generic Name Dose Route Start Last Admin Trade Name Freq PRN Reason Stop Dose Admin Sodium Chloride 1,000 mls @ 30 ml s/hr 07/09/19 09:30 07/09/19 09:52 Sodium Chloride 0.9% IV 07/10/19 09:29 30 mls/hr .Q24H YVETTE Administration PFSH Anesthesia PFSH: Social History Smoking and tobacco status: former smoker Alcohol intake: never Household members: none Marital status: service: Yes Current occupational status: retired History of recent travel: No Data Anesthesia Cardiac Studies: No Data to Display
--- NOTE | 2019-07-09 10:16 | W.PM.OPSUD ---
Surgery/Procedure H&P Update DATE OF PROCEDURE: July 09, 2019 DATE H&P PERFORMED: 07/06/19 H&P UPDATE INFORMATION: I have reviewed H&P completed within last 30 days, I have examined patient prior to procedure and No changes to prior documentation PREOP DIAGNOSIS: Malignancy vertebral column PLANNED PROCEDURE: Operation Date: 07/09/19 11:00 Proposed Procedures p Portacath Placement 32108 C41.2(Not Applicable) - Chuy Vidal MD
--- NOTE | 2019-07-09 10:48 | SC_ITS ---
WS: [id number] C-ARM RADIOGRAPHS CHEST; 2 IMAGES HISTORY: intra-op COMPARISON: None available. Intraoperative imaging during LEFT subclavian Port-A-Cath placement. SC/C-arm FL for CVA [id number] IMPRESSION: Intraoperative imaging during Port-A-Cath placement.
[2019-07-09] MEDS: heparin, porcine 1,000 unit/mL INJ 10 mL 10000 UNIT IRRIGATION (11:03)
[2019-07-09] MEDS: lidocaine 1% INJ 20 mL SUBCUT (11:04)
[2019-07-09 11:29] VITALS: BP 113/64; PULSE 69; RESP 20; TEMP 36.4; O2SAT 96
[2019-07-09 12:05] VITALS: BP 122/83; PULSE 63; RESP 20; TEMP 36.4; O2SAT 96
--- NOTE | 2019-07-09 15:35 | PM.OP ---
Operative Report Date of procedure: July 09, 2019 Pre-op Diagnosis: Malignancy vertebral column Post-op diagnosis: same Procedure Done: Placement of Mediport in the left subclavian vein Fluoroscopic guidance and interpretation for placement of catheter Pathology: none sent Surgeon: Chuy Vidal Anesthesia: MAC Estimated blood loss (mL): 10 Condition: stable Disposition: PACU Procedure: The patient was taken to the Operating Room and the chest and neck bilaterally were prepped and draped in a sterile manner after the antibiotic had been administered and shoulder rolls had been placed. A total of 10 mL of 1% lidocaine with 0.5% Marcaine was infiltrated under the clavicle on the left side at the site of the planned entry into the subclavian vein. An introducer needle was then used to access the subclavian vein under the clavicle and after withdrawing blood syringe was removed and a guidewire passed under fluoroscopy into the superior vena cava. The site of the planned port was then marked on the chest and a 15 blade was used to make a 3 cm skin incision this was extended into the subcutaneous tissue using electrocautery and a subcutaneous pocket over the pectoralis fascia was created 2-0 Vicryl suture was used to suture the port to the pectoral fascia in the pocket on 3 sides. The catheter, after having been flushed with hep saline, was attached to the tunneler and a tunnel created between the port site and the subclavian vein entry site. Under fluoroscopy the dilator sheath was passed over the guidewire into the proximal superior vena cava. The inner dilator was removed and the sheath left behind and~ the catheter was introduced through the peel-away sheath with the tip in the superior vena cava. The peel-away sheath was removed. The proximal end of the catheter was cut to the right size and was attached to the port. Using a Pradhan needle the port was accessed, it withdrew blood easily and flushed easily. A final 5cc of heparin was used to flush the PowerPort. The subcutaneous tissue was approximated using interrupted 3-0 Vicryl sutures and the skin at the introducer site and the port site was closed using subcuticular running 4-0 Monocryl sutures. Surgical glue was applied and the patient was stable throughout the procedure. Fluoroscopic guidance and interpretation was performed for introduction of the guidewire in the left subclavian vein, passage of dilator and placement of catheter tip in the distal superior vena cava.
== END 2019-07-09 12:20 | disposition home or self-care (01) ==
PROVIDERS: Family Provider Family Medicine; PCP Family Medicine; Visit Provider Surgery
PROC: (CPT 36561; principal; 2019-07-09 10:40)
DX: C41.2 Malignant neoplasm of vertebral column (principal); C78.7 Secondary malignant neoplasm of liver and intrahepatic bile duct; K21.9 Gastro-esophageal reflux disease without esophagitis; I10 Essential (primary) hypertension; E78.5 Hyperlipidemia, unspecified; Z82.49 Family history of ischemic heart disease and other diseases of the circulatory system; Z87.891 Personal history of nicotine dependence; E66.01 Morbid (severe) obesity due to excess calories; Z68.35 Body mass index [BMI] 35.0-35.9, adult
CPT/HCPCS: 36561; 12345; 76000; 77001; C1788; J0690; J1644; J2001; J2704; J3010; J3490; J7030

== ENCOUNTER 2019-07-10 15:00 | Outpatient (CLI) | payer OTHER, SELFPAY ==
--- NOTE | 2019-07-09 | SCC_ITS ---
Procedure Done: Placement of Mediport in the left subclavian vein 34.5 seconds of fluoroscopic guidance, for a cumulative dose of 7.32 mGy, was provided to Dr. Vidal by the radiology department. C-arm images of the chest were saved for the patient's permanent record. [facility]ITALKirby
[2019-07-10 18:34] LABS: Alanine Aminotransferase 19 U/L (0-41); Albumin Level 3.9 g/dL (3.5-5.2); Alkaline Phosphatase 172 IU/L (40-130); Anion Gap 14.9 (5-19); Aspartate Amino Transferase 21 U/L (0-40); Blood Urea Nitrogen 13 mg/dL (8-23); Calcium 9.6 mg/dL (8.5-10.5); Carbon Dioxide 28 mmol/L (22-29); Chloride 99 mmol/L (98-107); Globulin 2.7 g/dL (1.3-4.6); Glucose 122 mg/dL (65-115); Osmolality Calculated 283 mOsm/kg (285-295); Potassium 3.9 mmol/L (3.5-5.1); Sodium 138 mmol/L (136-145); Total Bilirubin 0.3 mg/dL (0.15-1.2); Total Protein 6.6 g/dL (6.6-8.7)
[2019-07-10 18:39] LABS: Basophils % 0.5 %; Eosinophils # 0.2 10^3/uL (0.0-0.8); Eosinophils % 2.6 %; Hematocrit 38.2 % (42.0-52.0); Hemoglobin 12.1 g/dL (11.7-16.6); Lymphocytes # 2.1 10^3/uL (0.8-4.8); Lymphocytes % 31.7 %; Mean Corpuscular HGB Conc 31.7 g/dL (30.0-36.0); Mean Corpuscular Volume 91.6 fL (80-94); Monocytes # 0.5 10^3/uL (0.2-0.9); Monocytes % 6.8 %; Neutrophils # 3.9 10^3/uL (1.8-7.7); Neutrophils % 58.2 %; Nucleated Red Blood Cells % 0 %; Platelet Count 200 10^3/cmm (130-400); Red Blood Count 4.17 10^6/uL (4.1-5.3); Red Cell Distribution Width 13.5 % (12.1-15.1); White Blood Count 6.7 10^3/uL (4.0-10.0)
[2019-07-10 19:09] LABS: Hepatitis A Antibody IgM. Non-Reactive (Nonreactive); Hepatitis B Surface AB. 3.5 (0-8.5); Hepatitis B Surface Antigen. Non-Reactive (Nonreactive); Hepatitis C Virus Antibody Non-Reactive (Nonreactive)
[2019-07-10 21:06] LABS: HIV 1 & 2 Antibody Non-Reactive (Non-Reactiv); HIV 1 & 2 Antigen Non-Reactive (Non-Reactiv)
== END 2019-07-10 15:01 | disposition home or self-care (01) ==
LOC: ONCMED 07-11 09:18
PROVIDERS: Family Provider Family Medicine; PCP Family Medicine; Visit Provider Internal Medicine Hematology & Oncology
DX: C83.59 Lymphoblastic (diffuse) lymphoma, extranodal and solid organ sites (principal)
CPT/HCPCS: 36415; 80053; 85025; 86705; 86706; 86709; 86803; 87340; 87806

== ENCOUNTER 2019-07-12 06:18 | Outpatient (CLI) | payer OTHER, SELFPAY ==
[2019-07-12] MEDS: acetaminophen 325 mg Tablet 650 MG PO (09:14)
[2019-07-12] MEDS: sodium chloride 0.9% 1,000 ML 999 ML IV (10:18)
[2019-07-12] MEDS: DOXORUBICIN 345 MG IV (14:40)
[2019-07-12] MEDS: denosumab 120 mg SDV SUBCUT (15:10)
[2019-07-12] MEDS: pegfilgrastim 6 mg/0.6 mL Kit (onpro) SUBCUT (16:05)
== END 2019-07-12 06:19 | disposition home or self-care (01) ==
LOC: ONCMED 06:19
PROVIDERS: Family Provider Family Medicine; PCP Family Medicine; Visit Provider Internal Medicine Hematology & Oncology
DX: Z51.12 Encounter for antineoplastic immunotherapy (principal); Z51.11 Encounter for antineoplastic chemotherapy; C83.59 Lymphoblastic (diffuse) lymphoma, extranodal and solid organ sites; D70.1 Agranulocytosis secondary to cancer chemotherapy; T45.1X5A Adverse effect of antineoplastic and immunosuppressive drugs, initial encounter
CPT/HCPCS: 96367; 96372; 96411; 96413; 96415; 96417; J0897; J1100; J1200; J1453; J2469; J2505; J7030; J7040; J9000; J9070; J9312; J9370

== ENCOUNTER 2019-07-30 10:45 | Outpatient (CLI) | payer OTHER, SELFPAY ==
[2019-07-30 15:38] LABS: Basophils # 0.1 10^3/uL (0.0-0.1); Eosinophils % 0.7 %; Hemoglobin 12.5 g/dL (11.7-16.6); Lymphocytes # 1.7 10^3/uL (0.8-4.8); Lymphocytes % 29.4 %; Mean Corpuscular HGB Conc 32.9 g/dL (30.0-36.0); Mean Corpuscular Hemoglobin 29.8 pg (28.0-34.0); Mean Corpuscular Volume 90.5 fL (80-94); Mean Platelet Volume 9.9 fL (7.4-10.4); Monocytes % 16.7 %; Neutrophils % 51.5 %; Nucleated Red Blood Cells % 0 %; Platelet Count 259 10^3/cmm (130-400); Red Cell Distribution Width 14.6 % (12.1-15.1); White Blood Count 5.9 10^3/uL (4.0-10.0)
[2019-07-30 16:46] LABS: Alanine Aminotransferase 24 U/L (0-41); Alkaline Phosphatase 147 IU/L (40-130); Anion Gap 21.1 (5-19); Aspartate Amino Transferase 24 U/L (0-40); Blood Urea Nitrogen 12 mg/dL (8-23); Carbon Dioxide 20 mmol/L (22-29); Chloride 95 mmol/L (98-107); Globulin 3.5 g/dL (1.3-4.6); Glucose 133 mg/dL (65-115); Osmolality Calculated 272 mOsm/kg (285-295); Potassium 4.1 mmol/L (3.5-5.1); Sodium 132 mmol/L (136-145); Total Bilirubin 0.2 mg/dL (0.15-1.2); Total Protein 7.5 g/dL (6.6-8.7)
== END 2019-07-30 10:46 | disposition home or self-care (01) ==
LOC: ONCMED 15:05
PROVIDERS: Family Provider Family Medicine; PCP Family Medicine; Visit Provider Internal Medicine Hematology & Oncology
DX: C83.59 Lymphoblastic (diffuse) lymphoma, extranodal and solid organ sites (principal)
CPT/HCPCS: 36415; 80053; 85025

== ENCOUNTER 2019-08-02 06:45 | Outpatient (RCR) | payer OTHER, SELFPAY ==
--- NOTE | 2019-07-31 16:49 | ONC FU_ITS ---
Dr. Arriaza follow up note Patient: Chang Carr Unit #: [id number]: 1945 Dicatated By: Chuy Arriaza M.D.Date of Visit:Jul 31, 2019 Onc Med Follow-up/Prog Note History of Present Illness: Mr. Chang Carr, is a 74-year-old gentleman with history of basal cell carcinoma involving left shoulder and left anterior shoulder status post excision then history of lymphocytic infiltrate of the skin involving dorsum of the right hand possibility of T-cell lymphoma was not excluded, for which he was referred to Dr. Manning , medical oncologist in [place], as per patient special blood test were performed twice on 6 monthly basis and no abnormality was found. And then on 11/21/2017 during his follow-up dermatology exam he was found to have right lateral abdominal skin lesion biopsy was obtained and final pathology report showed changes compatible with lymphocytic infiltration off unknown biological significance. As per patient on 04/16/2019, 1 morning he got up with severe mid back pain and pain was non-radiating type no lower extremity weakness no urine or stool incontinence, no history of trauma to his back patient said he has seen chiropractor 1 time without much help then he was seen by Dr. Osei and MRI scan of spine was ordered but patient could not lay flat on his back so it was rescheduled finally on 05/28/2019 he underwent MRI scan of thoracic spine which showed mass in paraspinal area involving left T9 costovertebral joint, worrisome for neoplastic process/metastasis. And the mass approximates the inferior margin of exiting left T8 nerve root. In effacement of normal fat signal within the left T9-T10 neuroforamen. Suspicious for tumor extension which would affect course of exiting left T9 nerve root. CT scan of thoracic spine was done on 06/12/2019 showed large destructive, expansile mass centered in left paravertebral soft tissue and osseous structures about the T8-9 level. Mass measures 3.3 x 2 x 3.5 cm with a destruction of lateral T8 and T9 vertebral bodies, lamina and left transverse processes and eighth rib. Soft tissue tumor extends into for men of T8-9 and T9-10 with near contact on the lateral thecal sac. 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 Positive for CD20, CD10 (weak) BCL 6, and p63 and Ki-67 90% of the tumor cell positive. Tumor cell negative for CD3, CD5, BCL 2, cyclin D1 and MYC, EB, ER, CD30, And kappa and lambda light chains. Mum 1, CK 7 CK 20, melanin, HMB-45 and TTF-1 ,NAPSIN A and chromogranin No flow cytometry has been done. FISH studies are pending to rule out double hit type lymphoma or to exclude Burkitt's lymphoma. Patient denies any B symptoms like no night sweats, no weight loss, no peripheral lymphadenopathy, no recurrent fevers. Vision denies any hemoptysis or hematemesis, patient denies any melena or hematochezia, patient denies any abdominal fullness, patient denies any lower extremity paresthesia or numbness. Patient has history of chronic lower extremity edema and chronic wounds involving lower extremity above both ankles anteriorly, recently done venous Doppler study on 06/19/2019 showed no evidence of DVT but venous insufficiency Patient has raised multiple skin lesions around left knee, as per patient he underwent biopsy and as per patient it was due to arthritis.CT PET scan done on showed T8 vertebral body involvement and L4 destructive lesion and 5 x 2.9 cm single hepatic lesion no lymphadenopathy seen. FISH showed no evidence of double hit or Burkitt's lymphoma e.g. negative for MYC, BCL6 rearrangement. Negative for T(14;18) Echocardiogram done on 06/27/2019 showed ejection fraction 65%, HIV status and hepatitis profile checked on 07/10/2019 came back nonreactive Started on systemic chemotherapy with R CHOP on 07/12/2019 Came for follow-up, denies any specific complaints, no fever or chills, no nausea or vomiting, no diarrhea constipation still has mid back pain but has improved significantly and now requiring hydrocodone off and on but not on a regular basis. Denies any mouth sores, denies any jaundice denies any urine or stool incontinence denies any headaches but lost hair recently. Tolerated first cycle of chemotherapy with R CHOP well Medications: AmLODIPine Besylate 1 Tablet (of 5 mg) Oral daily, Zacjhdgyqb-[id number]-[id number] 2 Tablet Oral b.i.d., Excedrin Extra Strength 1 - 2 Tablet (of 250-250-65 mg) Oral daily, Flonase 2 spray(s) (of 50 mcg/act) Suspension Nasal daily, Furosemide 1 Tablet (of 40 mg) Oral daily, HydroCHLOROthiazide 1 Tablet (of 25 mg) Oral daily, HYDROcodone-Acetaminophen 1 - 2 Tablet (of 5-325 mg) Oral q 4 to 6 hours PRN, HydrOXYzine Pamoate 1 Capsule (of 25 mg) Oral t.i.d., Losartan Potassium 1 Tablet (of 100 mg) Oral daily, Omeprazole 1 Tablet (of 20 mg) Tablet, enteric coated Oral b.i.d., Venlafaxine HCl ER 1 Capsule (of 150 mg) Capsule SR 24 HR Oral daily Allergies: IV Contrast dye Review of Systems: Review of Systems is not available for this patient. Vital Signs: Performed on Jul 31, 2019 16:12 Height - 70.00 in Weight - 250.8 lbs (LOW) BSA - 2.30 sq.m BMI - 35.99 (HIGH) Temperature - 96.9 F (LOW) Pulse - 92 /min Respiration - 19 /min BP - 145/74 mm(hg) (HIGH) O2 Sat - 94 % (LOW) Pain - 3 Performance Status: 0 - Fully active, able to carry on all predisease activities without restrictions. (ECOG) Physical Examination: ENMT - no mouth sores or thrush, Respiratory - Lungs are clear, Cardiovascular - Regular rate and rhythm of heart, Abdomen - Non-tender, non-distended Good bowel sounds, Extremities - no visible edema. Lab/Imaging: Test performed on Jul 10, 2019 15:00 Sodium 138 mmol/L Potassium 3.9 mmol/L Chloride 99 mmol/L CO2 28 mmol/L Anion Gap 14.9 BUN 13 mg/dL Creatinine 0.9 mg/dL Cr Clearance (Est) 119.5700 mL/min Glucose 122 mg/dL Calcium 9.6 mg/dL Protein, Total 6.6 g/dL Albumin 3.9 g/dL Globulin 2.7 g/dL Bilirubin, Total 0.3 mg/dL ALT (SGPT) 19 U/L AST (SGOT) 21 U/L Alkaline Phosphatase 172 IU/L WBC 6.7 10 3/uL RBC 4.17 10 6/uL HGB 12.1 g/dL HCT 38.2 % MCV 91.6 fL MCH 29.0 pg MCHC 31.7 g/dL RDW 13.5 % Platelet Count 200 10 3/cmm MPV 10.0 fL Neutrophils 3.9 10 3/uL Lymphocytes 2.1 10 3/uL Monocytes 0.5 10 3/uL Eosinophils 0.2 10 3/uL Basophils 0.0 10 3/uL Neutrophil % 58.2 % Lymphocyte % 31.7 % Monocyte % 6.8 % Eosinophil % 2.6 % Basophils % 0.5 % Impression: High-grade B-cell lymphoma, with blastoid morphology, but CT-guided biopsy of left paraspinal mass done on 06/24/2019 which showed 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 No flow cytometry done. FISH studies ruled out double hit type lymphoma or to exclude Burkitt's lymphoma e.g. negative for MYC and BCL 6 rearrangement and also negative for T(14;18) MRI scan of the thoracic spine done on 2019 showed mass centered left T9 costovertebral joint, worrisome for neoplastic process/metastasis mass approximates the inferior margin of exiting left T8 nerve root. In effacement of normal fat signal within left T9-T10 neuralforamen, suspicious for tumor extension. CT scan of thoracic spine done on 06/12/2019 showed large destructive, expansile mass centered in the left paravertebral soft tissue and osseous structures about T8-9 level. Mass measures 3.3 x 2 x 3.5 cm with destruction of the lateral T8 and T9 vertebral bodies, lamina and left transverse processes and eighth rib. Next Soft tissue tumor extends into the foramina of T8-9 and T9-10 with a near contact on the lateral thecal sac. clinical stage ALLIE (liver involvement) started on R CHOP on 07/12/2019 Echo done on 07/03/2019 showed ejection fraction 65% and CT PET scan showed involvement of T8 and L4 and single lesion in the liver e.g. clinical stage IV E (liver involvement) Mid back pain History of chronic lower extremity edema bilaterally with chronic ulceration involving bilateral ankle anteriorly. Venous Doppler study done on 06/19/2019 showed no evidence of DVT but venous insufficiency. Lymphocytic infiltration of unknown biological significance per skin biopsy from right lateral abdomen done on 11/21/2017 and in the past skin biopsy from dorsum of right hand also showed atypical lymphocytes infiltrates possibilities include T cell lymphoproliferative disorder. No associated B symptoms and peripheral lymphadenopathy Patient has seen medical oncologist Dr. manning in [facility], who did some blood work up twice 6 months apart, as per patient it was negative. History of basal cell carcinoma involving left shoulder status post excision Plan: Discussed with patient regarding his labs white blood count 5.9 hemoglobin 12.5 hematocrit 38 platelets 259,000 CMP within normal limits Clinically, patient is doing well, tolerating systemic chemotherapy with R CHOP well but with expected side effects. His follow-up lab workup looks reasonable, patient is scheduled for second cycle with R CHOP on , 08/02/2019 with Neulasta to prevent chemotherapy-induced neutropenia/leukopenia and then patient will return to clinic on 08/22 with CBC CMP and if it looks reasonable, for cycle #3 with R CHOP. Patient was advised to discontinue allopurinol. And in case there is a worsening of mid back pain or urine or stool incontinence or pain radiating to lower extremities he need to call us immediately otherwise return to clinic as scheduled. Signed By: Chuy Arriaza M.D. <<Signature on File>>
[2019-08-02] MEDS: acetaminophen 325 mg Tablet 650 MG PO (08:40)
[2019-08-02] MEDS: sodium chloride 0.9% 500 ML 999 ML IV (09:45)
[2019-08-02] MEDS: DOXORUBICIN 345 MG IV (13:00)
[2019-08-02] MEDS: pegfilgrastim 6 mg/0.6 mL Kit (onpro) SUBCUT (14:35)
== END 2019-08-09 23:59 | disposition home or self-care (01) ==
LOC: ONCMED 06:45
PROVIDERS: Family Provider Family Medicine; PCP Family Medicine; Visit Provider Internal Medicine Hematology & Oncology
DX: Z51.12 Encounter for antineoplastic immunotherapy (principal); Z51.11 Encounter for antineoplastic chemotherapy; C83.59 Lymphoblastic (diffuse) lymphoma, extranodal and solid organ sites; L98.6 Other infiltrative disorders of the skin and subcutaneous tissue; F41.9 Anxiety disorder, unspecified; F32.9 Major depressive disorder, single episode, unspecified; E78.5 Hyperlipidemia, unspecified; I10 Essential (primary) hypertension; M19.90 Unspecified osteoarthritis, unspecified site; Z79.899 Other long term (current) drug therapy
CPT/HCPCS: 96367; 96368; 96372; 96411; 96413; 96415; 96417; 99214; J1100; J1200; J1453; J2469; J2505; J7040; J9000; J9070; J9312; J9370

== ENCOUNTER 2019-08-23 06:43 | Outpatient (RCR) | payer OTHER, SELFPAY ==
[2019-08-22 13:39] LABS: Basophils # 0.1 10^3/uL (0.0-0.1); Basophils % 1.1 %; Eosinophils # 0.1 10^3/uL (0.0-0.8); Hemoglobin 11.5 g/dL (11.7-16.6); Lymphocytes # 1.4 10^3/uL (0.8-4.8); Lymphocytes % 21.5 %; Mean Corpuscular HGB Conc 32.9 g/dL (30.0-36.0); Mean Corpuscular Volume 88.4 fL (80-94); Mean Platelet Volume 9.4 fL (7.4-10.4); Monocytes # 0.9 10^3/uL (0.2-0.9); Neutrophils % 60.8 %; Nucleated Red Blood Cells % 0 %; Platelet Count 285 10^3/cmm (130-400); Red Blood Count 3.96 10^6/uL (4.1-5.3); Red Cell Distribution Width 15.4 % (12.1-15.1); White Blood Count 6.6 10^3/uL (4.0-10.0)
[2019-08-22 13:57] LABS: Alanine Aminotransferase 23 U/L (0-41); Alkaline Phosphatase 98 IU/L (40-130); Anion Gap 14.1 (5-19); Aspartate Amino Transferase 21 U/L (0-40); Blood Urea Nitrogen 14 mg/dL (8-23); Calcium 9.7 mg/dL (8.5-10.5); Carbon Dioxide 23 mmol/L (22-29); Chloride 96 mmol/L (98-107); Globulin 3.1 g/dL (1.3-4.6); Glucose 119 mg/dL (65-115); Osmolality Calculated 265 mOsm/kg (285-295); Potassium 4.1 mmol/L (3.5-5.1); Sodium 129 mmol/L (136-145); Total Bilirubin 0.2 mg/dL (0.15-1.2); Total Protein 7.1 g/dL (6.6-8.7)
[2019-08-23] MEDS: acetaminophen 325 mg Tablet 650 MG PO (09:20)
[2019-08-23] MEDS: sodium chloride 0.9% 500 ML 999 ML IV (09:25)
[2019-08-23] MEDS: denosumab 120 mg SDV SUBCUT (09:25)
[2019-08-23] MEDS: DOXORUBICIN 345 MG IV (13:05)
[2019-08-23] MEDS: pegfilgrastim 6 mg/0.6 mL Kit (onpro) SUBCUT (15:00)
--- NOTE | 2019-08-26 17:23 | ONC FU_ITS ---
[facility] Patient Note Patient: Chang Carr Unit #: [id number]: 1945 Dictated By: Mireya AlexanderDate of Visit: August 23, 2019 Onc MED Follow-Up/Prog Note Chief Complaint: Atypical lymphocytic infiltrate per skin biopsy from right lateral abdomen History of Present Illness: Mr. Carr is a 74-year-old gentleman with history of basal cell carcinoma involving left shoulder and left anterior shoulder status post excision. He has a history of lymphocytic infiltrate of the skin involving dorsum of the right hand, the possibility of T-cell lymphoma was not excluded. He was referred to Dr. Manning , medical oncologist in [place]. Mr Carr reports special blood tests were performed twice on 6 monthly basis and no abnormality was found. On 11/21/2017 during his follow-up dermatology exam he was found to have right lateral abdominal skin lesion. A biopsy was obtained and final pathology report showed changes compatible with lymphocytic infiltration off unknown biological significance. Mr Carr on 04/16/2019, that morning he got up with severe mid back pain. The pain was non-radiating; no lower extremity weakness; no urine or stool incontinence, no history of trauma to his back. He states he had seen a chiropractor one time without much help. He was seen by Dr. Osei and MRI scan of spine was ordered but patient could not lay flat on his back due to the severe pain. Tt was rescheduled finally on 05/28/2019. He underwent MRI scan of thoracic spine which showed a mass in paraspinal area involving left T9 costovertebral joint, worrisome for neoplastic process/metastasis. The mass approximated the inferior margin of exiting left T8 nerve root. In effacement of normal fat signal within the left T9-T10 neuroforamen. Suspicious for tumor extension which would affect course of exiting left T9 nerve root. CT scan of thoracic spine was done on 06/12/2019 showed large destructive, expansile mass centered in left paravertebral soft tissue and osseous structures about the T8-9 level. The mass measured 3.3 x 2 x 3.5 cm with a destruction of lateral T8 and T9 vertebral bodies, lamina and left transverse processes and eighth rib. Soft tissue tumor extends into the formen of T8-9 and T9-10 with near contact on the lateral thecal sac. 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 Positive for CD20, CD10 (weak) BCL 6, and p63 and Ki-67 90% of the tumor cell positive. Tumor cell negative for CD3, CD5, BCL 2, cyclin D1 and MYC, EB, ER, CD30, And kappa and lambda light chains. Mum 1, CK 7 CK 20, melanin, HMB-45 and TTF-1 ,NAPSIN A and chromogranin. No flow cytometry has been done. FISH studies are pending to rule out double hit type lymphoma or to exclude Burkitt's lymphoma. Mr Carr has denied any B symptoms, ie: night sweats, weight loss, peripheral lymphadenopathy, recurrent fevers. He denies any Vision changes and denies any hemoptysis or hematemesis. He denied any melena or hematochezia, any abdominal fullness, or any lower extremity paresthesia or numbness. Mr Carr began chemotherapy with R-CHOP on 07/14/2019. He did have chemo induced neutropenia with cycle 1 and required support with Neupogen. Since then he has been supported with Neulasta. He is tolerating the treatment well. His only complaint is that he has had some intermittent insomnia and states that the generally occurs 4 to 7 days post treatment. I suspect that this could be related to his high-dose steroids/prednisone. He states otherwise he is doing great. He states he is had no pain. His pain is been gone for the last couple of weeks. He states he actually feels like he can get up and a little bit more around the house although he is not overdoing it at this time. His appetite is better. He denies any nausea or vomiting. He has had no fever or chills. He denies any new neuropathy discomforts. He again denies any pain. He states his bowels are normal for him. He has chronic headaches and states he continues to have those intermittently but they are not chemo related according to his assessment. We did discuss that we do use Aloxi premed which could cause a headache so if he has problems with headache that is more than his normal he instructed to let us know. Thus far he has not been nauseated and antiemetics are working well. He is very pleasant and a great historian. His ECOG is 1. Past Medical History: Anxiety Depression History of basal cell carcinoma Hyperlipidemia Hypertension Osteoarthritis Past Surgical History: Discectomy Laminectomy Prostatectomy Tonsillectomy Vasectomy Colonoscopy in 2014 Allergies: IV Contrast dye Medications: AmLODIPine Besylate 1 Tablet (of 5 mg) Oral daily [id number]-[id number]-[id number] 2 Tablet Oral b.i.d. Excedrin Extra Strength 1 - 2 Tablet (of 250-250-65 mg) Oral daily Flonase 2 spray(s) (of 50 mcg/act) Suspension Nasal daily Furosemide 1 Tablet (of 40 mg) Oral daily HydroCHLOROthiazide 1 Tablet (of 25 mg) Oral daily HYDROcodone-Acetaminophen 1 - 2 Tablet (of 5-325 mg) Oral q 4 to 6 hours PRN HydrOXYzine Pamoate 1 Capsule (of 25 mg) Oral t.i.d. Losartan Potassium 1 Tablet (of 100 mg) Oral daily Omeprazole 1 Tablet (of 20 mg) Tablet, enteric coated Oral b.i.d. Venlafaxine HCl ER 1 Capsule (of 150 mg) Capsule SR 24 HR Oral daily Family History: Mr. Carr's mother at age 87: heart failure. Mr. Carr's father at age 77: heart failure. Mr. Carr has 2 sisters: 1 alive, 1 . Mr. Carr's first sister's heart disease. Social History: Mr. Carr is and he is retired. Mr. Carr quit smoking 46 years ago but had smoked 0.5 packs/day for 6 years. He drinks occasionally. Review Of Symptoms: Constitutional Denies fevers, chills, night sweats, excessive fatigue or weight loss. He states he feels great . Allergic/Immunologic No reactions. Eyes Denies significant visual changes. No diplopia. No amaurosis. ENMT Denies changes in hearing, sore throat, mouth sores, difficulty or changes in swallowing ability, and/or sinus drainage. Endocrine No diabetes, thyroid disease or hormone replacement. Denies hot flashes or night sweats. Hematologic/Lymphatic Denies easy bruising or bleeding. The patient denies any tender or palpable lymph nodes. Breasts Respiratory Denies dyspnea on exertion, chest pain, cough or hemoptysis. Denies orthopnea. Cardiovascular Denies anginal chest pain, palpitations or orthopnea. Gastrointestinal Denies nausea, vomiting, diarrhea, GI bleeding, or constipation. Denies change in bowel habits and/or stool color, no heartburn or early satiety. Genitourinary (M) Denies hematuria, dysuria, increased frequency, urgency, hesitancy or incontinence. Musculoskeletal Denies joint pain, swelling or redness. No decreased range of motion. Integumentary Denies chronic rashes, inflammation, ulcerations or skin changes. Neurologic Denies headache, blurred vision, and no areas of focal weakness or numbness. Normal gait. No sensory problems. Psychiatric Denies insomnia, depression, shaila or mood swings. has had some insomnia about 5-7 days post chemo. resolved currently. Vital Signs: Performed on August 23, 2019 08:33 Height - 70.00 in Weight - 251.6 lbs (HIGH) BSA - 2.30 sq.m BMI - 36.10 (HIGH) Temperature - 98.1 F (LOW) Pulse - 81 /min Respiration - 16 /min BP - 140/73 mm(hg) O2 Sat - 97 % Pain - 0,1 - No physically strenuous activity, but ambulatory and able to carry out light or sedentary work (e.g. office work, light house work). (ECOG) Physical Examination: Constitutional Alert, oriented, no acute distress. Skin pink, warm and dry. Head Normocephalic; atraumatic. Eyes Conjunctivae and sclerae are clear and without icterus. Pupils are reactive and equal. ENMT No oral exudates, ulcers, masses, thrush or mucositis. Oropharynx clear. Tongue normal. Neck Supple without masses or thyromegaly. No jugular venous distension. Hematologic/Lymphatic No petechiae or purpura. No tender or palpable lymph nodes in the cervical or supraclavicular areas. Respiratory Lungs are clear to auscultation without rhonchi or wheezing. Cardiovascular Regular rate and rhythm of heart without murmurs,clicks, gallops or rubs. Abdomen Non-tender, non-distended, no masses or ascites. Good bowel sounds noted in all quads. No guarding or rebound tenderness. No pulsatile masses. Back/Spine Non-tender to palpation. Extremities No visible deformities, no cyanosis, clubbing or edema. Musculoskeletal No tenderness or swelling, normal range of motion without obvious weakness. Integumentary No rashes or lesions. Neurologic No sensory or motor deficits, normal cerebellar function, normal gait. Psychiatric Alert and oriented times three. Coherent speech. Verbalizes understanding of our discussions today. Laboratory:Test performed on August 22, 2019 11:55 Sodium 129 mmol/L Potassium 4.1 mmol/L Chloride 96 mmol/L CO2 23 mmol/L Anion Gap 14.1 BUN 14 mg/dL Creatinine 0.7 mg/dL Cr Clearance (Est) 153.7300 mL/min Glucose 119 mg/dL Calcium 9.7 mg/dL Protein, Total 7.1 g/dL Albumin 4.0 g/dL Globulin 3.1 g/dL Bilirubin, Total 0.2 mg/dL ALT (SGPT) 23 U/L AST (SGOT) 21 U/L Alkaline Phosphatase 98 IU/L WBC 6.6 10 3/uL RBC 3.96 10 6/uL HGB 11.5 g/dL HCT 35.0 % MCV 88.4 fL MCH 29.0 pg MCHC 32.9 g/dL RDW 15.4 % Platelet Count 285 10 3/cmm MPV 9.4 fL Neutrophils 4.0 10 3/uL Lymphocytes 1.4 10 3/uL Monocytes 0.9 10 3/uL Eosinophils 0.1 10 3/uL Basophils 0.1 10 3/uL Neutrophil % 60.8 % Lymphocyte % 21.5 % Monocyte % 14.0 % Eosinophil % 2.0 % Basophils % 1.1 % Impression: High-grade B-cell lymphoma, with blastoid morphology, but CT-guided biopsy of left paraspinal mass done on 06/24/2019 which showed 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 No flow cytometry done. FISH studies ruled out double hit type lymphoma or to exclude Burkitt's lymphoma e.g. negative for MYC and BCL 6 rearrangement and also negative for T(14;18) MRI scan of the thoracic spine done on 2019 showed mass centered left T9 costovertebral joint, worrisome for neoplastic process/metastasis mass approximates the inferior margin of exiting left T8 nerve root. In effacement of normal fat signal within left T9-T10 neuralforamen, suspicious for tumor extension. CT scan of thoracic spine done on 06/12/2019 showed large destructive, expansile mass centered in the left paravertebral soft tissue and osseous structures about T8-9 level. Mass measures 3.3 x 2 x 3.5 cm with destruction of the lateral T8 and T9 vertebral bodies, lamina and left transverse processes and eighth rib. Next Soft tissue tumor extends into the foramina of T8-9 and T9-10 with a near contact on the lateral thecal sac. clinical stage ALLIE (liver involvement) Echo done on 07/03/2019 showed ejection fraction 65% and CT PET scan showed involvement of T8 and L4 and single lesion in the liver e.g. clinical stage IV E (liver involvement) Mid back pain Mr Carr has a history of chronic lower extremity edema bilaterally with chronic ulceration involving bilateral ankle anteriorly. Venous Doppler study done on 06/19/2019 showed no evidence of DVT but venous insufficiency. Lymphocytic infiltration of unknown biological significance per skin biopsy from right lateral abdomen done on 11/21/2017 and in the past skin biopsy from dorsum of right hand also showed atypical lymphocytes infiltrates possibilities include T cell lymphoproliferative disorder. No associated B symptoms and peripheral lymphadenopathy Patient has seen medical oncologist Dr. manning in [facility], who did some blood work up twice 6 months apart, as per patient it was negative. History of basal cell carcinoma involving left shoulder status post excision Mr Carr began treatment with R-CHOP on 07/12/2019. He does continue to require Neulasta support. He has tolerated treatment extremely well. He reports that all of his pain is gone. He states he feels he is doing great . Plan: 1. Proceed with cycle 3-day 1 R???CHOP. He will take his prednisone as instructed just as he has been in the last 2 cycles. 2. We will continue with current anti-medics as these are working well for him. 3. He is advised that he could try Benadryl or Lorazepam 1 mg for sleep if he has any recurrent insomnia episodes. I suspect this may be related to his high-dose prednisone. I have asked for a refill to be called to [facility] employee pharmacy with the 340 be pricing if optional. 4. Labs from 08/22/2019 were reviewed in detail and discussed with Mr. Carr and a copy was given to him. WBC 6.6, hemoglobin 11.5, platelets 285,000 ANC is 4000 potassium 4.1 glucose 119 LFTs are normal BUN and creatinine are normal as well as creatinine 0.7. 5. We will plan to see Mr. Carr back in 3 weeks with CBC, CMP and LDH. He will be due for cycle 4-day 1 at that time. He has not been receiving interim counts but we could add those if any questions or problems arise. 6. Mr. Carr was instructed to contact us in the interim should questions or problems arise. Signed By: Mireya Alexander-, CNP Nima Lambert MD <<Signature on File>>
--- NOTE | 2019-09-06 16:12 | ONC FU_ITS ---
[facility] Patient Note Patient: Chang Carr Unit #: [id number]: [id number] Dictated By: Mireya AlexanderDate of Visit: September 06, 2019 Onc MED Follow-Up Telephone Communication Dejah today as he called in saying that he has not had any luck with trying the Benadryl or Lorazepam at night for sleep. He has tried Xanax in the past and states this worked well for him although it has been quite sometime since he is taking any. We will start with 1 mg at bedtime he can try 1 or 2 tablets. He states in the past it took 3 mg at bedtime to help him sleep. However I told him that since is been a while since he is taken it they will try to titrate up slowly. A prescription was called [facility] pharmacy but they are out of Xanax until September 10. A 5-day prescription was called to [facility] in [place] for 1 mg 1 or 2 at at bedtime #10 and no refills. Signed By: Mireya Alexander-HUEY VILLALOBOSP <<Signature on File>>
== END 2019-09-09 23:59 | disposition home or self-care (01) ==
LOC: ONCMED 06:43
PROVIDERS: Internal Medicine Hematology & Oncology; PCP Family Medicine; Visit Provider Nurse Practitioner
DX: Z51.12 Encounter for antineoplastic immunotherapy (principal); C83.59 Lymphoblastic (diffuse) lymphoma, extranodal and solid organ sites; L98.6 Other infiltrative disorders of the skin and subcutaneous tissue; M54.6 Pain in thoracic spine; D70.1 Agranulocytosis secondary to cancer chemotherapy; T45.1X5A Adverse effect of antineoplastic and immunosuppressive drugs, initial encounter; Z79.899 Other long term (current) drug therapy
CPT/HCPCS: 36415; 80053; 85025; 96367; 96368; 96372; 96411; 96413; 96415; 96417; 99214; J0897; J1100; J1200; J1453; J2469; J2505; J7040; J9000; J9070; J9312; J9370

== ENCOUNTER → 2019-09-11 10:40 | Outpatient (BNVA) | payer OTHER, SELFPAY | PROVIDERS: PCP Family Medicine; Visit Provider Internal Medicine Hematology & Oncology | DX: C83.50 Lymphoblastic (diffuse) lymphoma, unspecified site (principal) | CPT/HCPCS: 80053; 83615; 85025 ==

== ENCOUNTER → 2019-10-02 12:00 | Outpatient (BNVA) | payer OTHER, SELFPAY | PROVIDERS: Visit Provider Internal Medicine Hematology & Oncology | DX: C41.2 Malignant neoplasm of vertebral column (principal) | CPT/HCPCS: 80053; 83615; 85025 ==

== ENCOUNTER 2019-10-04 06:41 | Outpatient (RCR) | payer OTHER, SELFPAY ==
[2019-09-13] MEDS: acetaminophen 325 mg Tablet 650 MG PO (10:26)
[2019-09-13] MEDS: sodium chloride 0.9% 500 ML 999 ML IV (10:30)
--- NOTE | 2019-09-13 11:31 | ONC FU_ITS ---
Dr. Arriaza follow up note Patient: Chang Carr Unit #: [id number]: [id number] Dicatated By: Chuy Arriaza M.D.Date of Visit:Sep 13, 2019 Onc Med Follow-up/Prog Note History of Present Illness: Mr. Carr is a 74-year-old gentleman with history of basal cell carcinoma involving left shoulder and left anterior shoulder status post excision. He has a history of lymphocytic infiltrate of the skin involving dorsum of the right hand, the possibility of T-cell lymphoma was not excluded. He was referred to Dr. Manning , medical oncologist in [place]. Mr Carr reports special blood tests were performed twice on 6 monthly basis and no abnormality was found. On 11/21/2017 during his follow-up dermatology exam he was found to have right lateral abdominal skin lesion. A biopsy was obtained and final pathology report showed changes compatible with lymphocytic infiltration off unknown biological significance. Mr Carr on 04/16/2019, that morning he got up with severe mid back pain. The pain was non-radiating; no lower extremity weakness; no urine or stool incontinence, no history of trauma to his back. He states he had seen a chiropractor one time without much help. He was seen by Dr. Osei and MRI scan of spine was ordered but patient could not lay flat on his back due to the severe pain. Tt was rescheduled finally on 05/28/2019. He underwent MRI scan of thoracic spine which showed a mass in paraspinal area involving left T9 costovertebral joint, worrisome for neoplastic process/metastasis. The mass approximated the inferior margin of exiting left T8 nerve root. In effacement of normal fat signal within the left T9-T10 neuroforamen. Suspicious for tumor extension which would affect course of exiting left T9 nerve root. CT scan of thoracic spine was done on 06/12/2019 showed large destructive, expansile mass centered in left paravertebral soft tissue and osseous structures about the T8-9 level. The mass measured 3.3 x 2 x 3.5 cm with a destruction of lateral T8 and T9 vertebral bodies, lamina and left transverse processes and eighth rib. Soft tissue tumor extends into the formen of T8-9 and T9-10 with near contact on the lateral thecal sac. 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 Positive for CD20, CD10 (weak) BCL 6, and p63 and Ki-67 90% of the tumor cell positive. Tumor cell negative for CD3, CD5, BCL 2, cyclin D1 and MYC, EB, ER, CD30, And kappa and lambda light chains. Mum 1, CK 7 CK 20, melanin, HMB-45 and TTF-1 ,NAPSIN A and chromogranin. No flow cytometry has been done. FISH studies are pending to rule out double hit type lymphoma or to exclude Burkitt's lymphoma. Mr Carr has denied any B symptoms, ie: night sweats, weight loss, peripheral lymphadenopathy, recurrent fevers. He denies any Vision changes and denies any hemoptysis or hematemesis. He denied any melena or hematochezia, any abdominal fullness, or any lower extremity paresthesia or numbness. Mr Carr began chemotherapy with R-CHOP on 07/14/2019. He did have chemo induced neutropenia with cycle 1 and required support with Neupogen. Since then he has been supported with Neulasta. He is tolerating the treatment well. His only complaint is that he has had some intermittent insomnia and states that the generally occurs 4 to 7 days post treatment. I suspect that this could be related to his high-dose steroids/prednisone. He states otherwise he is doing great. He states he is had no pain. His pain is been gone for the last couple of weeks. He states he actually feels like he can get up and a little bit more around the house although he is not overdoing it at this time. His appetite is better. He denies any nausea or vomiting. He has had no fever or chills. He denies any new neuropathy discomforts. He again denies any pain. He states his bowels are normal for him. He has chronic headaches and states he continues to have those intermittently but they are not chemo related according to his assessment. We did discuss that we do use Aloxi premed which could cause a headache so if he has problems with headache that is more than his normal he instructed to let us know. Thus far he has not been nauseated and antiemetics are working well. He is very pleasant and a great historian. His ECOG is 1. Patient has history of chronic lower extremity edema and chronic wounds involving lower extremity above both ankles anteriorly, recently done venous Doppler study on 06/19/2019 showed no evidence of DVT but venous insufficiency Patient has raised multiple skin lesions around left knee, as per patient he underwent biopsy and as per patient it was due to arthritis.CT PET scan done on showed T8 vertebral body involvement and L4 destructive lesion and 5 x 2.9 cm single hepatic lesion no lymphadenopathy seen. FISH showed no evidence of double hit or Burkitt's lymphoma e.g. negative for MYC, BCL6 rearrangement. Negative for T(14;18) Echocardiogram done on 06/27/2019 showed ejection fraction 65%, HIV status and hepatitis profile checked on 07/10/2019 came back nonreactive Started on systemic chemotherapy with R CHOP on 07/12/2019 Came for follow-up, denies any specific complaint except sleeplessness but patient said all his life usually he goes to sleep late like 4:00 in the morning and get up late in the morning but now trying to sleep early and alprazolam did help him. No fever chills otherwise no nausea or vomiting no night sweats, his mid/upper back pain has resolved. No peripheral numbness, no jaundice, tolerating systemic chemotherapy with R CHOP well. Medications: ALPRAZolam 2 - 4 Tablet (of 0.5 mg) Oral at bedtime, AmLODIPine Besylate 1 Tablet (of 5 mg) Oral daily, Ggxtrrydyt-YIFQ-Rxjgdjqm 2 Tablet Oral b.i.d., Excedrin Extra Strength 1 - 2 Tablet (of 250-250-65 mg) Oral daily, Flonase 2 spray(s) (of 50 mcg/act) Suspension Nasal daily, Furosemide 1 Tablet (of 40 mg) Oral daily, HydroCHLOROthiazide 1 Tablet (of 25 mg) Oral daily, HYDROcodone-Acetaminophen 1 - 2 Tablet (of 5-325 mg) Oral q 4 to 6 hours PRN, HydrOXYzine Pamoate 1 Capsule (of 25 mg) Oral t.i.d., Losartan Potassium 1 Tablet (of 100 mg) Oral daily, Omeprazole 1 Tablet (of 20 mg) Tablet, enteric coated Oral b.i.d., Venlafaxine HCl ER 1 Capsule (of 150 mg) Capsule SR 24 HR Oral daily Allergies: IV Contrast dye Review of Systems: Constitutional - Appetite is good and weight is stable. No fever, chills, hot flashes, or night sweats. Energy level is good, ENMT - No sinus congestion/drainage. No mouth sores. No sore throat or difficulty swallowing, Hematologic/Lymphatic - No abnormal bruising or bleeding, Respiratory - No shortness of breath. No cough. No pleuritic pain or hemoptysis, Cardiovascular - No angina pain. No palpitations, Gastrointestinal - No nausea or vomiting. No heartburn or acid reflux. No diarrhea or constipation. No blood in the stool or black stools, Genitourinary (M) - No dysuria or hematuria. No urinary frequency. No urgency or incontinence, Musculoskeletal - Positive for back pain, Neurologic - No headache or dizziness. No numbness/paresthesias or other focal neurologic symptoms, Psychiatric - Positive for anxiety and insomnia. No depression. Vital Signs: Performed on Sep 13, 2019 09:18 Height - 70.00 in Weight - 246.6 lbs (LOW) BSA - 2.28 sq.m BMI - 35.38 (HIGH) Temperature - 97.8 F (LOW) Pulse - 80 /min Respiration - 22 /min BP - 120/76 mm(hg) O2 Sat - 96 % Pain - 0 Performance Status: 0 - Fully active, able to carry on all predisease activities without restrictions. (ECOG) Physical Examination: ENMT - No oral exudates, ulcers, masses, thrush or mucositis. Oropharynx clear. Tongue normal, Respiratory - Lungs are clear, Cardiovascular - Regular rate and rhythm of heart, Abdomen - Non-tender, non-distended, . Good bowel sounds. No guarding or rebound tenderness, Extremities - No visible edema. Lab/Imaging: Test performed on August 22, 2019 11:55 Sodium 129 mmol/L Potassium 4.1 mmol/L Chloride 96 mmol/L CO2 23 mmol/L Anion Gap 14.1 BUN 14 mg/dL Creatinine 0.7 mg/dL Cr Clearance (Est) 153.7300 mL/min Glucose 119 mg/dL Calcium 9.7 mg/dL Protein, Total 7.1 g/dL Albumin 4.0 g/dL Globulin 3.1 g/dL Bilirubin, Total 0.2 mg/dL ALT (SGPT) 23 U/L AST (SGOT) 21 U/L Alkaline Phosphatase 98 IU/L WBC 6.6 10 3/uL RBC 3.96 10 6/uL HGB 11.5 g/dL HCT 35.0 % MCV 88.4 fL MCH 29.0 pg MCHC 32.9 g/dL RDW 15.4 % Platelet Count 285 10 3/cmm MPV 9.4 fL Neutrophils 4.0 10 3/uL Lymphocytes 1.4 10 3/uL Monocytes 0.9 10 3/uL Eosinophils 0.1 10 3/uL Basophils 0.1 10 3/uL Neutrophil % 60.8 % Lymphocyte % 21.5 % Monocyte % 14.0 % Eosinophil % 2.0 % Basophils % 1.1 % Impression: High-grade B-cell lymphoma, with blastoid morphology, but CT-guided biopsy of left paraspinal mass done on 06/24/2019 which showed 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 No flow cytometry done. FISH studies ruled out double hit type lymphoma or to exclude Burkitt's lymphoma e.g. negative for MYC and BCL 6 rearrangement and also negative for T(14;18) MRI scan of the thoracic spine done on 2019 showed mass centered left T9 costovertebral joint, worrisome for neoplastic process/metastasis mass approximates the inferior margin of exiting left T8 nerve root. In effacement of normal fat signal within left T9-T10 neuralforamen, suspicious for tumor extension. CT scan of thoracic spine done on 06/12/2019 showed large destructive, expansile mass centered in the left paravertebral soft tissue and osseous structures about T8-9 level. Mass measures 3.3 x 2 x 3.5 cm with destruction of the lateral T8 and T9 vertebral bodies, lamina and left transverse processes and eighth rib. Next Soft tissue tumor extends into the foramina of T8-9 and T9-10 with a near contact on the lateral thecal sac. clinical stage ALLIE (liver involvement) Echo done on 07/03/2019 showed ejection fraction 65% and CT PET scan showed involvement of T8 and L4 and single lesion in the liver e.g. clinical stage IV E (liver involvement) Mid back pain Mr Carr has a history of chronic lower extremity edema bilaterally with chronic ulceration involving bilateral ankle anteriorly. Venous Doppler study done on 06/19/2019 showed no evidence of DVT but venous insufficiency. Lymphocytic infiltration of unknown biological significance per skin biopsy from right lateral abdomen done on 11/21/2017 and in the past skin biopsy from dorsum of right hand also showed atypical lymphocytes infiltrates possibilities include T cell lymphoproliferative disorder. No associated B symptoms and peripheral lymphadenopathy Patient has seen medical oncologist Dr. manning in [facility], who did some blood work up twice 6 months apart, as per patient it was negative. History of basal cell carcinoma involving left shoulder status post excision Mr Carr began treatment with R-CHOP on 07/12/2019. He does continue to require Neulasta support. He has tolerated treatment extremely well. He reports that all of his pain is gone. He states he feels he is doing great . Plan: Discussed with patient regarding his labs white blood count 5 hemoglobin 11.5 hematocrit 34.8 platelets 272,000 CMP within normal limits except sodium 131 Clinically, patient is doing well, tolerating systemic chemotherapy with R CHOP well but with expected side effects. We will proceed with cycle #4 of R CHOP along with Xgeva today and then return to clinic in 3 weeks with a follow-up CT PET scan to assess disease status and response to the treatment. Signed By: Chuy Arriaza M.D. <<Signature on File>>
[2019-09-13] MEDS: DOXORUBICIN 345 MG IV (15:58)
[2019-09-13] MEDS: pegfilgrastim 6 mg/0.6 mL Kit (onpro) SUBCUT (16:20)
[2019-10-04] MEDS: acetaminophen 325 mg Tablet 650 MG PO (10:20)
[2019-10-04] MEDS: sodium chloride 0.9% 500 ML 999 ML IV (10:23)
[2019-10-04] MEDS: DOXORUBICIN 345 MG IV (15:30)
[2019-10-04] MEDS: pegfilgrastim 6 mg/0.6 mL Kit (onpro) SUBCUT (16:00)
--- NOTE | 2019-10-05 10:02 | ONC FU_ITS ---
Dr. Arriaza follow up note Patient: Chang Carr Unit #: [id number]: [id number] Dicatated By: Chuy Arriaza M.D.Date of Visit:Oct 04, 2019 Onc Med Follow-up/Prog Note History of Present Illness: Mr. Carr is a 74-year-old gentleman with history of basal cell carcinoma involving left shoulder and left anterior shoulder status post excision. He has a history of lymphocytic infiltrate of the skin involving dorsum of the right hand, the possibility of T-cell lymphoma was not excluded. He was referred to Dr. Manning , medical oncologist in [place]. Mr Carr reports special blood tests were performed twice on 6 monthly basis and no abnormality was found. On 11/21/2017 during his follow-up dermatology exam he was found to have right lateral abdominal skin lesion. A biopsy was obtained and final pathology report showed changes compatible with lymphocytic infiltration off unknown biological significance. Mr Carr on 04/16/2019, that morning he got up with severe mid back pain. The pain was non-radiating; no lower extremity weakness; no urine or stool incontinence, no history of trauma to his back. He states he had seen a chiropractor one time without much help. He was seen by Dr. Osei and MRI scan of spine was ordered but patient could not lay flat on his back due to the severe pain. Tt was rescheduled finally on 05/28/2019. He underwent MRI scan of thoracic spine which showed a mass in paraspinal area involving left T9 costovertebral joint, worrisome for neoplastic process/metastasis. The mass approximated the inferior margin of exiting left T8 nerve root. In effacement of normal fat signal within the left T9-T10 neuroforamen. Suspicious for tumor extension which would affect course of exiting left T9 nerve root. CT scan of thoracic spine was done on 06/12/2019 showed large destructive, expansile mass centered in left paravertebral soft tissue and osseous structures about the T8-9 level. The mass measured 3.3 x 2 x 3.5 cm with a destruction of lateral T8 and T9 vertebral bodies, lamina and left transverse processes and eighth rib. Soft tissue tumor extends into the formen of T8-9 and T9-10 with near contact on the lateral thecal sac. 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 Positive for CD20, CD10 (weak) BCL 6, and p63 and Ki-67 90% of the tumor cell positive. Tumor cell negative for CD3, CD5, BCL 2, cyclin D1 and MYC, EB, ER, CD30, And kappa and lambda light chains. Mum 1, CK 7 CK 20, melanin, HMB-45 and TTF-1 ,NAPSIN A and chromogranin. No flow cytometry has been done. FISH studies are pending to rule out double hit type lymphoma or to exclude Burkitt's lymphoma. Mr Carr has denied any B symptoms, ie: night sweats, weight loss, peripheral lymphadenopathy, recurrent fevers. He denies any Vision changes and denies any hemoptysis or hematemesis. He denied any melena or hematochezia, any abdominal fullness, or any lower extremity paresthesia or numbness. Mr Carr began chemotherapy with R-CHOP on 07/14/2019. He did have chemo induced neutropenia with cycle 1 and required support with Neupogen. Since then he has been supported with Neulasta. He is tolerating the treatment well. His only complaint is that he has had some intermittent insomnia and states that the generally occurs 4 to 7 days post treatment. I suspect that this could be related to his high-dose steroids/prednisone. He states otherwise he is doing great. He states he is had no pain. His pain is been gone for the last couple of weeks. He states he actually feels like he can get up and a little bit more around the house although he is not overdoing it at this time. His appetite is better. He denies any nausea or vomiting. He has had no fever or chills. He denies any new neuropathy discomforts. He again denies any pain. He states his bowels are normal for him. He has chronic headaches and states he continues to have those intermittently but they are not chemo related according to his assessment. We did discuss that we do use Aloxi premed which could cause a headache so if he has problems with headache that is more than his normal he instructed to let us know. Thus far he has not been nauseated and antiemetics are working well. He is very pleasant and a great historian. His ECOG is 1. Patient has history of chronic lower extremity edema and chronic wounds involving lower extremity above both ankles anteriorly, recently done venous Doppler study on 06/19/2019 showed no evidence of DVT but venous insufficiency Patient has raised multiple skin lesions around left knee, as per patient he underwent biopsy and as per patient it was due to arthritis.CT PET scan done on showed T8 vertebral body involvement and L4 destructive lesion and 5 x 2.9 cm single hepatic lesion no lymphadenopathy seen. FISH showed no evidence of double hit or Burkitt's lymphoma e.g. negative for MYC, BCL6 rearrangement. Negative for T(14;18) Echocardiogram done on 06/27/2019 showed ejection fraction 65%, HIV status and hepatitis profile checked on 07/10/2019 came back nonreactive Started on systemic chemotherapy with R CHOP on 07/12/2019 Follow-up CT PET scan done on September 15, 2019, after 4 cycles of R-CHOP showed Multiple destructive osseous lesions at left eighth rib, T8 and anterior left fifth rib, L4 are now FDG negative and similarly hepatic mass in segment 4 is resolved. No new lesions are present e.g. complete response Came for follow-up, denies any specific complaint except now with off and on mild progressive mid back pain sometime 4 on the scale of 1-10. Denies any trauma to his back but patient has been more active since with the chemotherapy his mid back pain was completely resolved. Patient denies any lower extremity numbness or weakness, patient denies any urine or stool incontinence. Patient denies any fever chills, nausea or vomiting, denies any jaundice, denies any night sweats, denies any peripheral lymphadenopathy, denies any abdominal fullness. Denies any peripheral neuropathy. Tolerating systemic chemotherapy with R CHOP well Medications: ALPRAZolam 2 - 4 Tablet (of 0.5 mg) Oral at bedtime, AmLODIPine Besylate 1 Tablet (of 5 mg) Oral daily, Jitwnolnqs-FPTU-Hhthxtat 2 Tablet Oral b.i.d., Excedrin Extra Strength 1 - 2 Tablet (of 250-250-65 mg) Oral daily, Flonase 2 spray(s) (of 50 mcg/act) Suspension Nasal daily, Furosemide 1 Tablet (of 40 mg) Oral daily PRN, HydroCHLOROthiazide 1 Tablet (of 25 mg) Oral daily, HYDROcodone-Acetaminophen 1 - 2 Tablet (of 5-325 mg) Oral q 4 to 6 hours PRN, HydrOXYzine Pamoate 1 Capsule (of 25 mg) Oral t.i.d., Losartan Potassium 1 Tablet (of 100 mg) Oral daily, Omeprazole 1 Tablet (of 20 mg) Tablet, enteric coated Oral b.i.d., Venlafaxine HCl ER 1 Capsule (of 150 mg) Capsule SR 24 HR Oral daily Allergies: IV Contrast dye Review of Systems: Constitutional - Appetite is good and weight is stable. No fever, chills, hot flashes, or night sweats. Energy level is good, ENMT - No sinus congestion/drainage. No mouth sores. No sore throat or difficulty swallowing, Hematologic/Lymphatic - No abnormal bruising or bleeding, Respiratory - No shortness of breath. No cough. No pleuritic pain or hemoptysis, Cardiovascular - No angina pain. No palpitations, Gastrointestinal - No nausea or vomiting. No heartburn or acid reflux. No diarrhea or constipation. No blood in the stool or black stools, Genitourinary (M) - No dysuria or hematuria. No urinary frequency. No urgency or incontinence, Musculoskeletal - Positive for back pain, Neurologic - No headache or dizziness. No numbness/paresthesias or other focal neurologic symptoms, Psychiatric - Positive for anxiety and insomnia. No depression. Vital Signs: Performed on Oct 04, 2019 08:49 Height - 70.00 in Weight - 245.6 lbs (LOW) BSA - 2.28 sq.m BMI - 35.24 (HIGH) Temperature - 97.9 F (LOW) Pulse - 77 /min Respiration - 18 /min BP - 118/71 mm(hg) O2 Sat - 97 % Pain - 4 Performance Status: 0 - Fully active, able to carry on all predisease activities without restrictions. (ECOG) Physical Examination: ENMT - No mouth sores, no thrush, no jaundice, Respiratory - Lungs are clear, Cardiovascular - Regular rate and rhythm of heart, Abdomen - Soft, bowel sounds present, Extremities - No visible edema, back exam showed mild tenderness on deep percussion around T8/T9 vertebra but no overlying skin changes or swelling. , Limited neuro exam shows no focal weakness Lab/Imaging: Test performed on Oct 02, 2019 12:00 Glucose 138 mg/dL BUN 16 mg/dL Creatinine 0.7 mg/dL Cr Clearance (Est) 153.73 mL/min Sodium 134 mmol/L Potassium 3.9 mmol/L Chloride 96 mmol/L CO2 24 mmol/L Calcium 9.3 mg/dL Protein, Total 6.9 g/dL Albumin 4.4 g/dL Globulin 2.5 g/dL Bilirubin, Total 0.2 mg/dL Alkaline Phosphatase 101 IU/L AST (SGOT) 21 IU/L ALT (SGPT) 28 IU/L WBC 7.5 10^9/L RBC 3.99 10^12/L HGB 12.6 g/dL HCT 36.9 % MCV 92.5 fl MCH 31.7 pg MCHC 34.3 g/dL RDW 19.3 % Platelet Count 224 10^9/L MPV 6.5 fL Neutrophils (Gran) 5.6 10^9/L Lymphocytes 1.1 10^9/L Monocytes 0.8 10^9/L Manual Lymphocytes 14.7 % Manual Monocytes 11.0 % Test performed on August 22, 2019 11:55 Anion Gap 14.1 Eosinophils 0.1 10 3/uL Basophils 0.1 10 3/uL Neutrophil % 60.8 % Lymphocyte % 21.5 % Monocyte % 14.0 % Eosinophil % 2.0 % Basophils % 1.1 % Impression: High-grade B-cell lymphoma, with blastoid morphology, but CT-guided biopsy of left paraspinal mass done on 06/24/2019 which showed 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 No flow cytometry done. FISH studies ruled out double hit type lymphoma or to exclude Burkitt's lymphoma e.g. negative for MYC and BCL 6 rearrangement and also negative for T(14;18) MRI scan of the thoracic spine done on 2019 showed mass centered left T9 costovertebral joint, worrisome for neoplastic process/metastasis mass approximates the inferior margin of exiting left T8 nerve root. In effacement of normal fat signal within left T9-T10 neuralforamen, suspicious for tumor extension. CT scan of thoracic spine done on 06/12/2019 showed large destructive, expansile mass centered in the left paravertebral soft tissue and osseous structures about T8-9 level. Mass measures 3.3 x 2 x 3.5 cm with destruction of the lateral T8 and T9 vertebral bodies, lamina and left transverse processes and eighth rib. Next Soft tissue tumor extends into the foramina of T8-9 and T9-10 with a near contact on the lateral thecal sac. clinical stage ALLIE (liver involvement) Echo done on 07/03/2019 showed ejection fraction 65% and CT PET scan showed involvement of T8 and L4 and single lesion in the liver e.g. clinical stage IV E (liver involvement) Mid back pain Mr Carr has a history of chronic lower extremity edema bilaterally with chronic ulceration involving bilateral ankle anteriorly. Venous Doppler study done on 06/19/2019 showed no evidence of DVT but venous insufficiency. Lymphocytic infiltration of unknown biological significance per skin biopsy from right lateral abdomen done on 11/21/2017 and in the past skin biopsy from dorsum of right hand also showed atypical lymphocytes infiltrates possibilities include T cell lymphoproliferative disorder. No associated B symptoms and peripheral lymphadenopathy Patient has seen medical oncologist Dr. manning in [facility], who did some blood work up twice 6 months apart, as per patient it was negative. History of basal cell carcinoma involving left shoulder status post excision Mr Carr began treatment with R-CHOP on 07/12/2019. He does continue to require Neulasta support. He has tolerated treatment extremely well. He reports that all of his pain is gone. He states he feels he is doing great . Plan: Discussed with patient regarding his labs white blood count 7.5 hemoglobin 12.6 crit 36.9 platelets 224,000 CMP within normal limits And follow-up CT PET scan, which showed complete response Clinically, patient is doing well, tolerating systemic therapy with R-CHOP well but with expected side effects, his follow-up CT PET scan showed excellent response now with resolution of liver mass as well as multiple destructive osseous lesions at T8, left eighth rib and left fifth rib and L4 now FDG negative e.g. complete response to the therapy. And further treatment options were discussed in detail as patient has achieved complete response, so we will continue and complete 6 cycles of R-CHOP and then being high risk for NEEDLEMAKER involement , as patient has high-grade B-cell lymphoma with a blastoid morphology e.g. high-grade B-cell lymphoma NOS, role of prophylactic NEEDLEMAKER therapy with intrathecal or Intravenous high-dose methotrexate or high-dose chemotherapy with stem cellWas discussed, at this point we will refer him him to lymphoma clinic at [facility] for evaluation and recommendation regarding NEEDLEMAKER prophylactic therapy or high-dose chemotherapy with stem cell. In the meantime, we will proceed with cycle #5/6 R CHOP today with Neulasta support and he will return to clinic in 2 weeks with CBC CMP As far as bothersome mid back pain is concerned, could be due to increased physical activity as his mid back pain pain improved significantly with systemic chemotherapy, but we will consider plain x-ray of thoracic and lumbar spine to rule out any collapsed vertebra. Patient was advised in case he has any sudden change in pain or any new neurological symptoms, he will need to call us or go to emergency room immediately. Signed By: Chuy Arriaza M.D. <<Signature on File>>
== END 2019-10-09 23:59 | disposition home or self-care (01) ==
LOC: ONCMED 06:41
PROVIDERS: Visit Provider Internal Medicine Hematology & Oncology
DX: Z51.12 Encounter for antineoplastic immunotherapy (principal); Z51.11 Encounter for antineoplastic chemotherapy; C83.59 Lymphoblastic (diffuse) lymphoma, extranodal and solid organ sites; L98.6 Other infiltrative disorders of the skin and subcutaneous tissue; F41.9 Anxiety disorder, unspecified; F32.9 Major depressive disorder, single episode, unspecified; E78.5 Hyperlipidemia, unspecified; I10 Essential (primary) hypertension; M19.90 Unspecified osteoarthritis, unspecified site; Z79.899 Other long term (current) drug therapy
CPT/HCPCS: 96361; 96367; 96372; 96413; 96415; 96417; 99214; J1100; J1200; J1453; J2469; J2505; J7040; J9000; J9070; J9312; J9370

== ENCOUNTER → 2019-10-24 13:28 | Outpatient (BNVA) | payer OTHER, SELFPAY | PROVIDERS: Visit Provider Internal Medicine Hematology & Oncology | DX: C41.2 Malignant neoplasm of vertebral column (principal) | CPT/HCPCS: 80053; 85025 ==

== ENCOUNTER → 2019-11-07 11:40 | Outpatient (BNVA) | payer OTHER, SELFPAY | PROVIDERS: Visit Provider Internal Medicine Hematology & Oncology | DX: C41.2 Malignant neoplasm of vertebral column (principal) | CPT/HCPCS: 80053; 85025 ==

== ENCOUNTER 2019-11-08 06:01 | Outpatient (RCR) | payer OTHER, SELFPAY ==
--- NOTE | 2019-10-17 09:06 | XRR_ITS ---
PROCEDURE INFORMATION: Exam: XR Lumbosacral Spine, 2 or 3 Views Exam date and time: 10/17/2019 9:28 AM Age: 74 years old Clinical indication: Low back pain; Prior surgery; Surgery type: L4-s1; Patient HX: Lymphoma; Additional info: Lymphoma, bone pain TECHNIQUE: Imaging protocol: XR of the lumbosacral spine, 2 or 3 views. COMPARISON: No relevant prior studies available. FINDINGS: Vertebrae: Moderate degenerative disc disease diffusely reflected as decrease in disc space height and anterior endplate osteophytosis. No spondylolisthesis No pars defect. No fracture. Soft tissues: Unremarkable. XR/XR lumbar spine 2-3V* [id number] IMPRESSION: Moderate degenerative disc disease. Most pronounced L5-S1 and L4-L5
--- NOTE | 2019-10-17 09:07 | XRR_ITS ---
PROCEDURE INFORMATION: Exam: XR Thoracic Spine, 3 Views Exam date and time: 10/17/2019 9:35 AM Age: 74 years old Clinical indication: Other: Bone pain; Additional info: Lymphoma, bone pain TECHNIQUE: Imaging protocol: XR of the thoracic spine, 3 views. COMPARISON: CT thoracic spin wo con* [id number] 06/12/2019 10:34 AM FINDINGS: Vertebrae: The alignment is normal. No visualized fracture. No paravertebral soft tissue prominence. Degenerative changes, mild, throughout much of the thoracic spine No subluxation-no perched or jumped facets. The facets are without acute process. Soft tissues: See Vertebrae finding. XR/XR thoracic spine 3V* [id number] IMPRESSION: No visualized fracture. Mild degenerative disc disease.
[2019-10-17 09:58] LABS: Basophils # 0.1 10^3/uL (0.0-0.1); Basophils % 0.9 %; Eosinophils # 0.1 10^3/uL (0.0-0.8); Eosinophils % 0.6 %; Hemoglobin 10.9 g/dL (11.7-16.6); Lymphocytes # 1.5 10^3/uL (0.8-4.8); Lymphocytes % 14.6 %; Mean Corpuscular HGB Conc 31.1 g/dL (30.0-36.0); Mean Corpuscular Hemoglobin 30.8 pg (28.0-34.0); Mean Corpuscular Volume 98.9 fL (80-94); Mean Platelet Volume 9.6 fL (7.4-10.4); Monocytes # 1.1 10^3/uL (0.2-0.9); Monocytes % 10.2 %; Neutrophils # 7.4 10^3/uL (1.8-7.7); Neutrophils % 70.6 %; Nucleated Red Blood Cells % 0.2 %; Platelet Count 191 10^3/cmm (130-400); Red Blood Count 3.54 10^6/uL (4.1-5.3); Red Cell Distribution Width 17.4 % (12.1-15.1); White Blood Count 10.4 10^3/uL (4.0-10.0)
[2019-10-17 10:21] LABS: Alanine Aminotransferase 26 U/L (0-41); Alkaline Phosphatase 101 IU/L (40-130); Anion Gap 15.1 (5-19); Aspartate Amino Transferase 20 U/L (0-40); Blood Urea Nitrogen 11 mg/dL (8-23); Calcium 8.9 mg/dL (8.5-10.5); Carbon Dioxide 24 mmol/L (22-29); Chloride 100 mmol/L (98-107); Globulin 2.6 g/dL (1.3-4.6); Glucose 98 mg/dL (65-115); Lactate Dehydrogenase 221 U/L (135-225); Osmolality Calculated 276 mOsm/kg (285-295); Potassium 4.1 mmol/L (3.5-5.1); Sodium 135 mmol/L (136-145); Total Bilirubin 0.2 mg/dL (0.15-1.2); Total Protein 6.6 g/dL (6.6-8.7)
--- NOTE | 2019-10-18 14:17 | ONC FU_ITS ---
Dr. Arriaza follow up note Patient: Chang Carr Unit #: [id number]: 1945 Dicatated By: Chuy Arriaza M.D.Date of Visit:Oct 18, 2019 Onc Med Follow-up/Prog Note History of Present Illness: Mr. Carr is a 74-year-old gentleman with history of basal cell carcinoma involving left shoulder and left anterior shoulder status post excision. He has a history of lymphocytic infiltrate of the skin involving dorsum of the right hand, the possibility of T-cell lymphoma was not excluded. He was referred to Dr. Manning , medical oncologist in [place]. Mr Carr reports special blood tests were performed twice on 6 monthly basis and no abnormality was found. On 11/21/2017 during his follow-up dermatology exam he was found to have right lateral abdominal skin lesion. A biopsy was obtained and final pathology report showed changes compatible with lymphocytic infiltration off unknown biological significance. Mr Carr on 04/16/2019, that morning he got up with severe mid back pain. The pain was non-radiating; no lower extremity weakness; no urine or stool incontinence, no history of trauma to his back. He states he had seen a chiropractor one time without much help. He was seen by Dr. Osei and MRI scan of spine was ordered but patient could not lay flat on his back due to the severe pain. Tt was rescheduled finally on 05/28/2019. He underwent MRI scan of thoracic spine which showed a mass in paraspinal area involving left T9 costovertebral joint, worrisome for neoplastic process/metastasis. The mass approximated the inferior margin of exiting left T8 nerve root. In effacement of normal fat signal within the left T9-T10 neuroforamen. Suspicious for tumor extension which would affect course of exiting left T9 nerve root. CT scan of thoracic spine was done on 06/12/2019 showed large destructive, expansile mass centered in left paravertebral soft tissue and osseous structures about the T8-9 level. The mass measured 3.3 x 2 x 3.5 cm with a destruction of lateral T8 and T9 vertebral bodies, lamina and left transverse processes and eighth rib. Soft tissue tumor extends into the formen of T8-9 and T9-10 with near contact on the lateral thecal sac. 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 Positive for CD20, CD10 (weak) BCL 6, and p63 and Ki-67 90% of the tumor cell positive. Tumor cell negative for CD3, CD5, BCL 2, cyclin D1 and MYC, EB, ER, CD30, And kappa and lambda light chains. Mum 1, CK 7 CK 20, melanin, HMB-45 and TTF-1 ,NAPSIN A and chromogranin. No flow cytometry has been done. FISH studies are pending to rule out double hit type lymphoma or to exclude Burkitt's lymphoma. Mr Carr has denied any B symptoms, ie: night sweats, weight loss, peripheral lymphadenopathy, recurrent fevers. He denies any Vision changes and denies any hemoptysis or hematemesis. He denied any melena or hematochezia, any abdominal fullness, or any lower extremity paresthesia or numbness. Mr Carr began chemotherapy with R-CHOP on 07/14/2019. He did have chemo induced neutropenia with cycle 1 and required support with Neupogen. Since then he has been supported with Neulasta. He is tolerating the treatment well. His only complaint is that he has had some intermittent insomnia and states that the generally occurs 4 to 7 days post treatment. I suspect that this could be related to his high-dose steroids/prednisone. He states otherwise he is doing great. He states he is had no pain. His pain is been gone for the last couple of weeks. He states he actually feels like he can get up and a little bit more around the house although he is not overdoing it at this time. His appetite is better. He denies any nausea or vomiting. He has had no fever or chills. He denies any new neuropathy discomforts. He again denies any pain. He states his bowels are normal for him. He has chronic headaches and states he continues to have those intermittently but they are not chemo related according to his assessment. We did discuss that we do use Aloxi premed which could cause a headache so if he has problems with headache that is more than his normal he instructed to let us know. Thus far he has not been nauseated and antiemetics are working well. He is very pleasant and a great historian. His ECOG is 1. Patient has history of chronic lower extremity edema and chronic wounds involving lower extremity above both ankles anteriorly, recently done venous Doppler study on 06/19/2019 showed no evidence of DVT but venous insufficiency Patient has raised multiple skin lesions around left knee, as per patient he underwent biopsy and as per patient it was due to arthritis.CT PET scan done on showed T8 vertebral body involvement and L4 destructive lesion and 5 x 2.9 cm single hepatic lesion no lymphadenopathy seen. FISH showed no evidence of double hit or Burkitt's lymphoma e.g. negative for MYC, BCL6 rearrangement. Negative for T(14;18) Echocardiogram done on 06/27/2019 showed ejection fraction 65%, HIV status and hepatitis profile checked on 07/10/2019 came back nonreactive Started on systemic chemotherapy with R CHOP on 07/12/2019 Follow-up CT PET scan done on September 15, 2019, after 4 cycles of R-CHOP showed Multiple destructive osseous lesions at left eighth rib, T8 and anterior left fifth rib, L4 are now FDG negative and similarly hepatic mass in segment 4 is resolved. No new lesions are present e.g. complete response Patient was complaining of mid upper back pain especially with change in position so X-ray thoracic and lumbar spine done on October 17, 2019 showed no visualized fracture but mild degenerative disc disease and decrease in disc space height as per patient he has history of back surgery involving lumbar disc/vertebra Came for follow-up, denies any specific complaint except off and on pain and mid upper back and occasionally in the lower back and recently underwent x-ray of thoracic and lumbar spine which showed no obvious abnormality except degenerative changes. Otherwise no fever or chills no nausea or vomiting no diarrhea or constipation no focal weakness. No night sweats, Medications: ALPRAZolam 2 - 4 Tablet (of 0.5 mg) Oral at bedtime, AmLODIPine Besylate 1 Tablet (of 5 mg) Oral daily, Whkrgopsub-KPQI-Xjggzxzc 2 Tablet Oral b.i.d., Excedrin Extra Strength 1 - 2 Tablet (of 250-250-65 mg) Oral daily, Flonase 2 spray(s) (of 50 mcg/act) Suspension Nasal daily, Furosemide 1 Tablet (of 40 mg) Oral daily PRN, HydroCHLOROthiazide 1 Tablet (of 25 mg) Oral daily, HYDROcodone-Acetaminophen 1 - 2 Tablet (of 5-325 mg) Oral q 4 to 6 hours PRN, HydrOXYzine Pamoate 1 Capsule (of 25 mg) Oral t.i.d., Losartan Potassium 1 Tablet (of 100 mg) Oral daily, Omeprazole 1 Tablet (of 20 mg) Tablet, enteric coated Oral b.i.d., Venlafaxine HCl ER 1 Capsule (of 150 mg) Capsule SR 24 HR Oral daily Allergies: IV Contrast dye Review of Systems: Constitutional - Appetite is good and weight is stable. No fever, chills, hot flashes, or night sweats. Energy level is good, ENMT - No sinus congestion/drainage. No mouth sores. No sore throat or difficulty swallowing, Hematologic/Lymphatic - No abnormal bruising or bleeding, Respiratory - No shortness of breath. No cough. No pleuritic pain or hemoptysis, Cardiovascular - No angina pain. No palpitations, Gastrointestinal - No nausea or vomiting. No heartburn or acid reflux. No diarrhea or constipation. No blood in the stool or black stools, Genitourinary (M) - No dysuria or hematuria. No urinary frequency. No urgency or incontinence, Musculoskeletal - Positive for back pain, Neurologic - No headache or dizziness. No numbness/paresthesias or other focal neurologic symptoms, Psychiatric - Positive for anxiety and insomnia. No depression. Vital Signs: Performed on Oct 18, 2019 13:16 Height - 70.00 in Weight - 241.2 lbs (LOW) BSA - 2.26 sq.m BMI - 34.61 (HIGH) Temperature - 98.0 F (LOW) Pulse - 83 /min Respiration - 24 /min BP - 122/72 mm(hg) O2 Sat - 97 % Pain - 4 Performance Status: 0 - Fully active, able to carry on all predisease activities without restrictions. (ECOG) Physical Examination: ENMT - No mouth sores, no thrush, no jaundice, Respiratory - Lungs are clear, Cardiovascular - Regular rate and rhythm of heart, Abdomen - Soft, bowel sounds present, Extremities - No visible edema. Lab/Imaging: Test performed on Oct 02, 2019 12:00 Glucose 138 mg/dL BUN 16 mg/dL Creatinine 0.7 mg/dL Cr Clearance (Est) 153.73 mL/min Sodium 134 mmol/L Potassium 3.9 mmol/L Chloride 96 mmol/L CO2 24 mmol/L Calcium 9.3 mg/dL Protein, Total 6.9 g/dL Albumin 4.4 g/dL Globulin 2.5 g/dL Bilirubin, Total 0.2 mg/dL Alkaline Phosphatase 101 IU/L AST (SGOT) 21 IU/L ALT (SGPT) 28 IU/L WBC 7.5 10^9/L RBC 3.99 10^12/L HGB 12.6 g/dL HCT 36.9 % MCV 92.5 fl MCH 31.7 pg MCHC 34.3 g/dL RDW 19.3 % Platelet Count 224 10^9/L MPV 6.5 fL Neutrophils (Gran) 5.6 10^9/L Lymphocytes 1.1 10^9/L Monocytes 0.8 10^9/L Manual Lymphocytes 14.7 % Manual Monocytes 11.0 % Test performed on August 22, 2019 11:55 Anion Gap 14.1 Eosinophils 0.1 10 3/uL Basophils 0.1 10 3/uL Neutrophil % 60.8 % Lymphocyte % 21.5 % Monocyte % 14.0 % Eosinophil % 2.0 % Basophils % 1.1 % Impression: High-grade B-cell lymphoma, with blastoid morphology, but CT-guided biopsy of left paraspinal mass done on 06/24/2019 which showed 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 No flow cytometry done. FISH studies ruled out double hit type lymphoma or to exclude Burkitt's lymphoma e.g. negative for MYC and BCL 6 rearrangement and also negative for T(14;18) MRI scan of the thoracic spine done on 2019 showed mass centered left T9 costovertebral joint, worrisome for neoplastic process/metastasis mass approximates the inferior margin of exiting left T8 nerve root. In effacement of normal fat signal within left T9-T10 neuralforamen, suspicious for tumor extension. CT scan of thoracic spine done on 06/12/2019 showed large destructive, expansile mass centered in the left paravertebral soft tissue and osseous structures about T8-9 level. Mass measures 3.3 x 2 x 3.5 cm with destruction of the lateral T8 and T9 vertebral bodies, lamina and left transverse processes and eighth rib. Next Soft tissue tumor extends into the foramina of T8-9 and T9-10 with a near contact on the lateral thecal sac. clinical stage ALLIE (liver involvement) Echo done on 07/03/2019 showed ejection fraction 65% and CT PET scan showed involvement of T8 and L4 and single lesion in the liver e.g. clinical stage IV E (liver involvement) Mid back pain Mr Carr has a history of chronic lower extremity edema bilaterally with chronic ulceration involving bilateral ankle anteriorly. Venous Doppler study done on 06/19/2019 showed no evidence of DVT but venous insufficiency. Lymphocytic infiltration of unknown biological significance per skin biopsy from right lateral abdomen done on 11/21/2017 and in the past skin biopsy from dorsum of right hand also showed atypical lymphocytes infiltrates possibilities include T cell lymphoproliferative disorder. No associated B symptoms and peripheral lymphadenopathy Patient has seen medical oncologist Dr. manning in [facility], who did some blood work up twice 6 months apart, as per patient it was negative. History of basal cell carcinoma involving left shoulder status post excision Mr Carr began treatment with R-CHOP on 07/12/2019. He does continue to require Neulasta support. He has tolerated treatment extremely well. He reports that all of his pain is gone. He states he feels he is doing great . Plan: Discussed with patient regarding his labs white blood count 10.4 hemoglobin 10.9 hematocrit 35 platelets 191,000 CMP within normal limits and x-ray of thoracic/lumbar spine findings. Clinically, patient is doing well with no signs symptom suggestive of recurrence of disease, patient is tolerating systemic therapy with R-CHOP well but with expected side effects., His follow-up lab work-up is within normal range except mild drop in his hemoglobin, no obvious sign of bleeding, could be due to chemotherapy. And as far as back pain is concerned, plain x-ray of thoracic lumbar spine showed no obvious abnormality except degenerative joint disease. Patient will return to clinic in 1 week with CBC CMP and if reasonable for cycle #6/6 with R-CHOP. And then patient being referred to lymphoma clinic at [facility] for evaluation for prophylactic FRUIT [employer] therapy or role of consolidation therapy or any clinical trial available. Patient return to clinic in 3 weeks with CBC CMP Signed By: Chuy Arriaza M.D. <<Signature on File>>
[2019-10-25] MEDS: acetaminophen 325 mg Tablet 650 MG PO (10:00)
[2019-10-25] MEDS: sodium chloride 0.9% 500 ML 999 ML IV (11:00)
[2019-10-25] MEDS: pegfilgrastim 6 mg/0.6 mL Kit (onpro) SUBCUT (15:45)
== END 2019-11-09 23:59 | disposition home or self-care (01) ==
LOC: ONCMED 06:01
PROVIDERS: Visit Provider Internal Medicine Hematology & Oncology
DX: Z51.12 Encounter for antineoplastic immunotherapy (principal); C83.59 Lymphoblastic (diffuse) lymphoma, extranodal and solid organ sites; M54.6 Pain in thoracic spine; D70.1 Agranulocytosis secondary to cancer chemotherapy; T45.1X5A Adverse effect of antineoplastic and immunosuppressive drugs, initial encounter; Z79.891 Long term (current) use of opiate analgesic
CPT/HCPCS: 36415; 72072; 72100; 80053; 83615; 85025; 96367; 96372; 96411; 96413; 96415; 96417; 99214; J1100; J1200; J1453; J2469; J2505; J7040; J9000; J9070; J9312; J9370

== ENCOUNTER 2020-02-05 13:00 | Outpatient (CLI) | payer OTHER, SELFPAY ==
--- NOTE | 2020-02-08 09:25 | ONC FU_ITS ---
Dr. Arriaza follow up note Patient: Chang Carr Unit #: [id number]: [id number] Dicatated By: Chuy Arriaza M.D.Date of Visit:Feb 05, 2020 Onc Med Follow-up/Prog Note History of Present Illness: Mr. Carr is a 74-year-old gentleman with history of basal cell carcinoma involving left shoulder and left anterior shoulder status post excision. He has a history of lymphocytic infiltrate of the skin involving dorsum of the right hand, the possibility of T-cell lymphoma was not excluded. He was referred to Dr. Manning , medical oncologist in [place]. Mr Carr reports special blood tests were performed twice on 6 monthly basis and no abnormality was found. On 11/21/2017 during his follow-up dermatology exam he was found to have right lateral abdominal skin lesion. A biopsy was obtained and final pathology report showed changes compatible with lymphocytic infiltration off unknown biological significance. Mr Carr on 04/16/2019, that morning he got up with severe mid back pain. The pain was non-radiating; no lower extremity weakness; no urine or stool incontinence, no history of trauma to his back. He states he had seen a chiropractor one time without much help. He was seen by Dr. Osei and MRI scan of spine was ordered but patient could not lay flat on his back due to the severe pain. Tt was rescheduled finally on 05/28/2019. He underwent MRI scan of thoracic spine which showed a mass in paraspinal area involving left T9 costovertebral joint, worrisome for neoplastic process/metastasis. The mass approximated the inferior margin of exiting left T8 nerve root. In effacement of normal fat signal within the left T9-T10 neuroforamen. Suspicious for tumor extension which would affect course of exiting left T9 nerve root. CT scan of thoracic spine was done on 06/12/2019 showed large destructive, expansile mass centered in left paravertebral soft tissue and osseous structures about the T8-9 level. The mass measured 3.3 x 2 x 3.5 cm with a destruction of lateral T8 and T9 vertebral bodies, lamina and left transverse processes and eighth rib. Soft tissue tumor extends into the formen of T8-9 and T9-10 with near contact on the lateral thecal sac. 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 Positive for CD20, CD10 (weak) BCL 6, and p63 and Ki-67 90% of the tumor cell positive. Tumor cell negative for CD3, CD5, BCL 2, cyclin D1 and MYC, EB, ER, CD30, And kappa and lambda light chains. Mum 1, CK 7 CK 20, melanin, HMB-45 and TTF-1 ,NAPSIN A and chromogranin. No flow cytometry has been done. FISH studies are pending to rule out double hit type lymphoma or to exclude Burkitt's lymphoma. Mr Carr has denied any B symptoms, ie: night sweats, weight loss, peripheral lymphadenopathy, recurrent fevers. He denies any Vision changes and denies any hemoptysis or hematemesis. He denied any melena or hematochezia, any abdominal fullness, or any lower extremity paresthesia or numbness. Mr Carr began chemotherapy with R-CHOP on 07/14/2019. He did have chemo induced neutropenia with cycle 1 and required support with Neupogen. Since then he has been supported with Neulasta. He is tolerating the treatment well. His only complaint is that he has had some intermittent insomnia and states that the generally occurs 4 to 7 days post treatment. I suspect that this could be related to his high-dose steroids/prednisone. He states otherwise he is doing great. He states he is had no pain. His pain is been gone for the last couple of weeks. He states he actually feels like he can get up and a little bit more around the house although he is not overdoing it at this time. His appetite is better. He denies any nausea or vomiting. He has had no fever or chills. He denies any new neuropathy discomforts. He again denies any pain. He states his bowels are normal for him. He has chronic headaches and states he continues to have those intermittently but they are not chemo related according to his assessment. We did discuss that we do use Aloxi premed which could cause a headache so if he has problems with headache that is more than his normal he instructed to let us know. Thus far he has not been nauseated and antiemetics are working well. He is very pleasant and a great historian. His ECOG is 1. Patient has history of chronic lower extremity edema and chronic wounds involving lower extremity above both ankles anteriorly, recently done venous Doppler study on 06/19/2019 showed no evidence of DVT but venous insufficiency Patient has raised multiple skin lesions around left knee, as per patient he underwent biopsy and as per patient it was due to arthritis.CT PET scan done on showed T8 vertebral body involvement and L4 destructive lesion and 5 x 2.9 cm single hepatic lesion no lymphadenopathy seen. FISH showed no evidence of double hit or Burkitt's lymphoma e.g. negative for MYC, BCL6 rearrangement. Negative for T(14;18) Echocardiogram done on 06/27/2019 showed ejection fraction 65%, HIV status and hepatitis profile checked on 07/10/2019 came back nonreactive Started on systemic chemotherapy with R CHOP on 07/12/2019 Follow-up CT PET scan done on September 15, 2019, after 4 cycles of R-CHOP showed Multiple destructive osseous lesions at left eighth rib, T8 and anterior left fifth rib, L4 are now FDG negative and similarly hepatic mass in segment 4 is resolved. No new lesions are present e.g. complete response Patient was complaining of mid upper back pain especially with change in position so X-ray thoracic and lumbar spine done on October 17, 2019 showed no visualized fracture but mild degenerative disc disease and decrease in disc space height as per patient he has history of back surgery involving lumbar disc/vertebra, Patient went to [place] for high-dose methotrexate therapy for [employer] prophylaxis and he received total 2 doses of high-dose methotrexate and last one was given on January 10, 2020. As per patient, he had episode of seizure-like activity on January 26 when he was visiting his daughter near [facility] and he was flown to [facility] in [place] where he underwent MRI scan of the head which shows no abnormality also had a EEG done and as per patient he had another witnessed seizure-like activity during the hospital, patient was started on Keppra with that he has no more episodes. As per patient he has history of seizure-like activity initially noticed in 2012 and then in October 2019, and third time in January 2020, he thinks every time sleep deprivation triggered the seizure-like activity, not being evaluated by neurology. Patient denies any episode of fever or confusion prior to the seizure. Came for follow-up, denies any specific complaints no fever chills, no nausea or vomiting, no diarrhea constipation, no night sweats, no weight loss, no peripheral lymphadenopathy, no abdominal fullness but, mild mid back discomfort.As per patient he was started on acyclovir 400 mg twice daily after his high-dose methotrexate therapy Medications: Acyclovir 1 Tablet (of 400 mg) Oral b.i.d., ALPRAZolam 2 - 4 Tablet (of 0.5 mg) Oral at bedtime, AmLODIPine Besylate 1 Tablet (of 5 mg) Oral daily, Hngyuqxleg-RQVP-Epzqtfhb 2 Tablet Oral b.i.d., Excedrin Extra Strength 1 - 2 Tablet (of 250-250-65 mg) Oral daily, Flonase 2 spray(s) (of 50 mcg/act) Suspension Nasal daily, Furosemide 1 Tablet (of 40 mg) Oral daily PRN, HydroCHLOROthiazide 1 Tablet (of 25 mg) Oral daily, HYDROcodone-Acetaminophen 1 - 2 Tablet (of 5-325 mg) Oral q 4 to 6 hours PRN, HydrOXYzine Pamoate 1 Capsule (of 25 mg) Oral t.i.d., Keppra 1 Tablet (of 750 mg) Oral b.i.d., Losartan Potassium 1 Tablet (of 100 mg) Oral daily, Omeprazole 1 Tablet (of 20 mg) Tablet, enteric coated Oral b.i.d., traZODone HCl 1 Tablet (of 50 mg) Oral at bedtime, Venlafaxine HCl ER 1 Capsule (of 150 mg) Capsule SR 24 HR Oral daily Allergies: IV Contrast dye Review of Systems: Constitutional - Appetite is good and weight is stable. No fever, chills, hot flashes, or night sweats. Energy level is good, ENMT - No sinus congestion/drainage. No mouth sores. No sore throat or difficulty swallowing, Hematologic/Lymphatic - No abnormal bruising or bleeding, Respiratory - No shortness of breath. No cough. No pleuritic pain or hemoptysis, Cardiovascular - No angina pain. No palpitations, Gastrointestinal - No nausea or vomiting. No heartburn or acid reflux. No diarrhea or constipation. No blood in the stool or black stools, Genitourinary (M) - No dysuria or hematuria. No urinary frequency. No urgency or incontinence, Musculoskeletal - Positive for back pain, Neurologic - No headache or dizziness. No numbness/paresthesias. Pt reports recent seizure activity, Psychiatric - Positive for anxiety and insomnia. No depression. Vital Signs: Performed on Feb 05, 2020 13:37 Height - 70.00 in Weight - 243.2 lbs (HIGH) BSA - 2.27 sq.m BMI - 34.90 (HIGH) Temperature - 98.3 F (LOW) Pulse - 97 /min Respiration - 17 /min BP - 140/74 mm(hg) O2 Sat - 96 % Pain - 2 Performance Status: 0 - Fully active, able to carry on all predisease activities without restrictions. (ECOG) Physical Examination: ENMT - No mouth sores, no thrush, no jaundice, Respiratory - Lungs are clear to auscultation, Cardiovascular - Regular rate and rhythm of heart, Abdomen - Soft, bowel sounds present, Extremities - No visible edema or peripheral lymphadenopathy. Lab/Imaging: Test performed on Oct 17, 2019 09:54 LDH (Total) 221 U/L Sodium 135 mmol/L Potassium 4.1 mmol/L Chloride 100 mmol/L CO2 24 mmol/L Anion Gap 15.1 BUN 11 mg/dL Creatinine 0.7 mg/dL Cr Clearance (Est) 147.61 mL/min Glucose 98 mg/dL Calcium 8.9 mg/dL Protein, Total 6.6 g/dL Albumin 4.0 g/dL Globulin 2.6 g/dL Bilirubin, Total 0.2 mg/dL ALT (SGPT) 26 U/L AST (SGOT) 20 U/L Alkaline Phosphatase 101 IU/L WBC 10.4 10 3/uL RBC 3.54 10 6/uL HGB 10.9 g/dL HCT 35.0 % MCV 98.9 fL MCH 30.8 pg MCHC 31.1 g/dL RDW 17.4 % Platelet Count 191 10 3/cmm MPV 9.6 fL Neutrophils 7.4 10 3/uL Lymphocytes 1.5 10 3/uL Monocytes 1.1 10 3/uL Eosinophils 0.1 10 3/uL Basophils 0.1 10 3/uL Neutrophil % 70.6 % Lymphocyte % 14.6 % Monocyte % 10.2 % Eosinophil % 0.6 % Basophils % 0.9 % NRBC % 0.2 % Test performed on Oct 02, 2019 12:00 Manual Lymphocytes 14.7 % Manual Monocytes 11.0 % Impression: High-grade B-cell lymphoma, with blastoid morphology, but CT-guided biopsy of left paraspinal mass done on 06/24/2019 which showed 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 No flow cytometry done. FISH studies ruled out double hit type lymphoma or to exclude Burkitt's lymphoma e.g. negative for MYC and BCL 6 rearrangement and also negative for T(14;18) MRI scan of the thoracic spine done on 2019 showed mass centered left T9 costovertebral joint, worrisome for neoplastic process/metastasis mass approximates the inferior margin of exiting left T8 nerve root. In effacement of normal fat signal within left T9-T10 neuralforamen, suspicious for tumor extension. CT scan of thoracic spine done on 06/12/2019 showed large destructive, expansile mass centered in the left paravertebral soft tissue and osseous structures about T8-9 level. Mass measures 3.3 x 2 x 3.5 cm with destruction of the lateral T8 and T9 vertebral bodies, lamina and left transverse processes and eighth rib. Next Soft tissue tumor extends into the foramina of T8-9 and T9-10 with a near contact on the lateral thecal sac. clinical stage ALLIE (liver involvement) Echo done on 07/03/2019 showed ejection fraction 65% and CT PET scan showed involvement of T8 and L4 and single lesion in the liver e.g. clinical stage IV E (liver involvement) Mid back pain Mr Carr has a history of chronic lower extremity edema bilaterally with chronic ulceration involving bilateral ankle anteriorly. Venous Doppler study done on 06/19/2019 showed no evidence of DVT but venous insufficiency. Lymphocytic infiltration of unknown biological significance per skin biopsy from right lateral abdomen done on 11/21/2017 and in the past skin biopsy from dorsum of right hand also showed atypical lymphocytes infiltrates possibilities include T cell lymphoproliferative disorder. No associated B symptoms and peripheral lymphadenopathy Patient has seen medical oncologist Dr. manning in [facility], who did some blood work up twice 6 months apart, as per patient it was negative. History of basal cell carcinoma involving left shoulder status post excision Mr Carr began treatment with R-CHOP on 07/12/2019. He does continue to require Neulasta support. He has tolerated treatment extremely well. He reports that all of his pain is gone. He states he feels he is doing great .Completed 6 cycles of R-CHOP in October 2019 With excellent response followed by [employer] prophylaxis with high-dose methotrexate x2 at [place] completed on January 10, 2020 Plan: Discussed with patient regarding his concerns and questions patient has completed consolidation therapy with high-dose methotrexate x2, as per patient last dose was given on January 10, 2020. Patient has history of seizure-like activity initially diagnosed in 2012, as per patient he thought it was due to sleep deprivation as it happened again in October 2019 and then recently on January 27, 2020 at that time he was hospitalized at [facility] in [place] and with MRI scan of head was done which was unremarkable and patient was started on Keppra since then no more episodes. And now being followed by neurologist at [facility]. Patient has persistent left inguinal uptake, will consider follow-up CT PET scan if it shows persistent disease then will consider biopsy to confirm and also consider CBC CMP and LDH when he return to clinic in 1 month with follow-up CT PET scan. Signed By: Chuy Arriaza M.D. <<Signature on File>>
== END 2020-02-05 13:01 | disposition home or self-care (01) ==
PROVIDERS: Visit Provider Internal Medicine Hematology & Oncology
DX: C83.59 Lymphoblastic (diffuse) lymphoma, extranodal and solid organ sites (principal); Z85.828 Personal history of other malignant neoplasm of skin; Z86.69 Personal history of other diseases of the nervous system and sense organs; Z92.21 Personal history of antineoplastic chemotherapy
CPT/HCPCS: 99214

== ENCOUNTER 2020-03-13 12:20 | Outpatient (CLI) | payer OTHER, SELFPAY ==
[2020-03-13 13:05] LABS: Basophils % 0.6 %; Eosinophils # 0.3 10^3/uL (0.0-0.8); Eosinophils % 3.6 %; Hematocrit 34.2 % (42.0-52.0); Hemoglobin 11.3 g/dL (11.7-16.6); Lymphocytes # 1.6 10^3/uL (0.8-4.8); Lymphocytes % 22.9 %; Mean Corpuscular Hemoglobin 30.3 pg (28.0-34.0); Mean Corpuscular Volume 91.7 fL (80-94); Mean Platelet Volume 9.1 fL (7.4-10.4); Monocytes # 0.7 10^3/uL (0.2-0.9); Monocytes % 9.7 %; Neutrophils # 4.43 10^3/uL (1.8-7.7); Neutrophils % 62.9 %; Nucleated Red Blood Cells % 0 %; Platelet Count 264 10^3/cmm (130-400); Red Blood Count 3.73 10^6/uL (4.1-5.3); Red Cell Distribution Width 14.1 % (12.1-15.1)
[2020-03-13 13:26] LABS: Alanine Aminotransferase 26 U/L (0-41); Albumin Level 4.1 g/dL (3.5-5.2); Alkaline Phosphatase 104 IU/L (40-130); Anion Gap 12.6 (5-19); Aspartate Amino Transferase 21 U/L (0-40); Blood Urea Nitrogen 11 mg/dL (8-23); Calcium 9.8 mg/dL (8.5-10.5); Carbon Dioxide 25 mmol/L (22-29); Chloride 104 mmol/L (98-107); Globulin 2.3 g/dL (1.3-4.6); Glucose 145 mg/dL (65-115); Lactate Dehydrogenase 165 U/L (135-225); Osmolality Calculated 288 mOsm/kg (285-295); Potassium 3.6 mmol/L (3.5-5.1); Sodium 138 mmol/L (136-145); Total Bilirubin 0.2 mg/dL (0.15-1.2); Total Protein 6.4 g/dL (6.6-8.7)
--- NOTE | 2020-03-21 00:44 | ONC FU_ITS ---
Dr. Arriaza follow up note Patient: Chang Carr Unit #: [id number]: [id number] Dicatated By: Chuy Arriaza M.D.Date of Visit:Mar 13, 2020 Onc Med Follow-up/Prog Note History of Present Illness: Mr. Carr is a 75-year-old gentleman with history of basal cell carcinoma involving left shoulder and left anterior shoulder status post excision. He has a history of lymphocytic infiltrate of the skin involving dorsum of the right hand, the possibility of T-cell lymphoma was not excluded. He was referred to Dr. Manning , medical oncologist in [place]. Mr Carr reports special blood tests were performed twice on 6 monthly basis and no abnormality was found. On 11/21/2017 during his follow-up dermatology exam he was found to have right lateral abdominal skin lesion. A biopsy was obtained and final pathology report showed changes compatible with lymphocytic infiltration off unknown biological significance. Mr Carr on 04/16/2019, that morning he got up with severe mid back pain. The pain was non-radiating; no lower extremity weakness; no urine or stool incontinence, no history of trauma to his back. He states he had seen a chiropractor one time without much help. He was seen by Dr. Osei and MRI scan of spine was ordered but patient could not lay flat on his back due to the severe pain. Tt was rescheduled finally on 05/28/2019. He underwent MRI scan of thoracic spine which showed a mass in paraspinal area involving left T9 costovertebral joint, worrisome for neoplastic process/metastasis. The mass approximated the inferior margin of exiting left T8 nerve root. In effacement of normal fat signal within the left T9-T10 neuroforamen. Suspicious for tumor extension which would affect course of exiting left T9 nerve root. CT scan of thoracic spine was done on 06/12/2019 showed large destructive, expansile mass centered in left paravertebral soft tissue and osseous structures about the T8-9 level. The mass measured 3.3 x 2 x 3.5 cm with a destruction of lateral T8 and T9 vertebral bodies, lamina and left transverse processes and eighth rib. Soft tissue tumor extends into the formen of T8-9 and T9-10 with near contact on the lateral thecal sac. 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 Positive for CD20, CD10 (weak) BCL 6, and p63 and Ki-67 90% of the tumor cell positive. Tumor cell negative for CD3, CD5, BCL 2, cyclin D1 and MYC, EB, ER, CD30, And kappa and lambda light chains. Mum 1, CK 7 CK 20, melanin, HMB-45 and TTF-1 ,NAPSIN A and chromogranin. No flow cytometry has been done. FISH studies are pending to rule out double hit type lymphoma or to exclude Burkitt's lymphoma. Mr Carr has denied any B symptoms, ie: night sweats, weight loss, peripheral lymphadenopathy, recurrent fevers. He denies any Vision changes and denies any hemoptysis or hematemesis. He denied any melena or hematochezia, any abdominal fullness, or any lower extremity paresthesia or numbness. Mr Carr began chemotherapy with R-CHOP on 07/14/2019. He did have chemo induced neutropenia with cycle 1 and required support with Neupogen. Since then he has been supported with Neulasta. He is tolerating the treatment well. His only complaint is that he has had some intermittent insomnia and states that the generally occurs 4 to 7 days post treatment. I suspect that this could be related to his high-dose steroids/prednisone. He states otherwise he is doing great. He states he is had no pain. His pain is been gone for the last couple of weeks. He states he actually feels like he can get up and a little bit more around the house although he is not overdoing it at this time. His appetite is better. He denies any nausea or vomiting. He has had no fever or chills. He denies any new neuropathy discomforts. He again denies any pain. He states his bowels are normal for him. He has chronic headaches and states he continues to have those intermittently but they are not chemo related according to his assessment. We did discuss that we do use Aloxi premed which could cause a headache so if he has problems with headache that is more than his normal he instructed to let us know. Thus far he has not been nauseated and antiemetics are working well. He is very pleasant and a great historian. His ECOG is 1. Patient has history of chronic lower extremity edema and chronic wounds involving lower extremity above both ankles anteriorly, recently done venous Doppler study on 06/19/2019 showed no evidence of DVT but venous insufficiency Patient has raised multiple skin lesions around left knee, as per patient he underwent biopsy and as per patient it was due to arthritis.CT PET scan done on showed T8 vertebral body involvement and L4 destructive lesion and 5 x 2.9 cm single hepatic lesion no lymphadenopathy seen. FISH showed no evidence of double hit or Burkitt's lymphoma e.g. negative for MYC, BCL6 rearrangement. Negative for T(14;18) Echocardiogram done on 06/27/2019 showed ejection fraction 65%, HIV status and hepatitis profile checked on 07/10/2019 came back nonreactive Started on systemic chemotherapy with R CHOP on 07/12/2019 Follow-up CT PET scan done on September 15, 2019, after 4 cycles of R-CHOP showed Multiple destructive osseous lesions at left eighth rib, T8 and anterior left fifth rib, L4 are now FDG negative and similarly hepatic mass in segment 4 is resolved. No new lesions are present e.g. complete response Patient was complaining of mid upper back pain especially with change in position so X-ray thoracic and lumbar spine done on October 17, 2019 showed no visualized fracture but mild degenerative disc disease and decrease in disc space height as per patient he has history of back surgery involving lumbar disc/vertebra, Patient went to [facility] for high-dose methotrexate therapy for [employer] prophylaxis and he received total 2 doses of high-dose methotrexate and last one was given on January 10, 2020. As per patient, he had episode of seizure-like activity on January 26 when he was visiting his daughter near [facility] and he was flown to [facility] in [place] where he underwent MRI scan of the head which shows no abnormality also had a EEG done and as per patient he had another witnessed seizure-like activity during the hospital, patient was started on Keppra with that he has no more episodes. As per patient he has history of seizure-like activity initially noticed in 2012 and then in October 2019, and third time in January 2020, he thinks every time sleep deprivation triggered the seizure-like activity, not being evaluated by neurology. Patient denies any episode of fever or confusion prior to the seizure .Follow-up CT PET scan done on March 08, 2020 showed negative for active lymphoma. Osseous lesions seen on previous scan are unchanged and FDG negative. No recurrent hepatic lymphoma. Reactive marrow and splenic activity seen previously has resolved. Came for follow-up, denies any specific complaint except generalized weakness and fatigue which is progressive since start on Keppra. Patient has follow-up appointment with Dr. Arriaza neurology and he will discuss with him regarding Keppra dose adjustment. Otherwise no night sweats, no weight loss, no peripheral lymphadenopathy, no recurrent fever. Patient has a chronic skin lesion around his left knee, as per patient he has seen hat mender in [place], [place] and in the past biopsy of those nodules confirmed arthritic nodule but now the skin lesions are getting worse with some oozing and crusting. Medications: Acyclovir 1 Tablet (of 400 mg) Oral b.i.d., AmLODIPine Besylate 1 Tablet (of 5 mg) Oral daily, Mhjbubxqyi-XONN-Aqujihig 2 Tablet Oral b.i.d., Excedrin Extra Strength 1 - 2 Tablet (of 250-250-65 mg) Oral daily, Flonase 2 spray(s) (of 50 mcg/act) Suspension Nasal daily, Furosemide 1 Tablet (of 40 mg) Oral daily PRN, HydroCHLOROthiazide 1 Tablet (of 25 mg) Oral daily, HydrOXYzine Pamoate 1 Capsule (of 25 mg) Oral t.i.d., Keppra 1 Tablet (of 750 mg) Oral daily, Losartan Potassium 1 Tablet (of 100 mg) Oral daily, Omeprazole 1 Tablet (of 20 mg) Tablet, enteric coated Oral b.i.d., traZODone HCl 1 Tablet (of 50 mg) Oral at bedtime, Venlafaxine HCl ER 1 Capsule (of 150 mg) Capsule SR 24 HR Oral daily Allergies: IV Contrast dye Review of Systems: Constitutional - Appetite is good and weight is stable. No fever, chills, hot flashes, or night sweats. Energy level is good, ENMT - No sinus congestion/drainage. No mouth sores. No sore throat or difficulty swallowing, Hematologic/Lymphatic - No abnormal bruising or bleeding, Respiratory - No shortness of breath. No cough. No pleuritic pain or hemoptysis, Cardiovascular - No angina pain. No palpitations, Gastrointestinal - No nausea or vomiting. No heartburn or acid reflux. No diarrhea or constipation. No blood in the stool or black stools, Genitourinary (M) - No dysuria or hematuria. No urinary frequency. No urgency or incontinence, Musculoskeletal - Positive for back pain, Neurologic - No headache or dizziness. No numbness/paresthesias. Pt reports recent seizure activity, Psychiatric - Positive for anxiety and insomnia. No depression. Vital Signs: Performed on Mar 13, 2020 14:01 Height - 70.00 in Weight - 252.2 lbs (HIGH) BSA - 2.30 sq.m BMI - 36.19 (HIGH) Temperature - 99.0 F (HIGH) Pulse - 69 /min Respiration - 24 /min BP - 142/82 mm(hg) (HIGH) O2 Sat - 97 % Pain - 3 Performance Status: 0 - Fully active, able to carry on all predisease activities without restrictions. (ECOG) Physical Examination: ENMT - No mouth sores, no thrush, no jaundice, Respiratory - Lungs are clear to auscultation, Cardiovascular - Regular rate and rhythm of heart, Abdomen - Soft, bowel sounds present, Extremities - Trace edema bilaterally and extensive skin lesions involving left anterior knee area with mild oozing and crusting but no pus seen. Lab/Imaging: Test performed on Oct 17, 2019 09:54 LDH (Total) 221 U/L Sodium 135 mmol/L Potassium 4.1 mmol/L Chloride 100 mmol/L CO2 24 mmol/L Anion Gap 15.1 BUN 11 mg/dL Creatinine 0.7 mg/dL Cr Clearance (Est) 147.61 mL/min Glucose 98 mg/dL Calcium 8.9 mg/dL Protein, Total 6.6 g/dL Albumin 4.0 g/dL Globulin 2.6 g/dL Bilirubin, Total 0.2 mg/dL ALT (SGPT) 26 U/L AST (SGOT) 20 U/L Alkaline Phosphatase 101 IU/L WBC 10.4 10 3/uL RBC 3.54 10 6/uL HGB 10.9 g/dL HCT 35.0 % MCV 98.9 fL MCH 30.8 pg MCHC 31.1 g/dL RDW 17.4 % Platelet Count 191 10 3/cmm MPV 9.6 fL Neutrophils 7.4 10 3/uL Lymphocytes 1.5 10 3/uL Monocytes 1.1 10 3/uL Eosinophils 0.1 10 3/uL Basophils 0.1 10 3/uL Neutrophil % 70.6 % Lymphocyte % 14.6 % Monocyte % 10.2 % Eosinophil % 0.6 % Basophils % 0.9 % NRBC % 0.2 % Test performed on Oct 02, 2019 12:00 Manual Lymphocytes 14.7 % Manual Monocytes 11.0 % Impression: High-grade B-cell lymphoma, with blastoid morphology, but CT-guided biopsy of left paraspinal mass done on 06/24/2019 which showed 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 No flow cytometry done. FISH studies ruled out double hit type lymphoma or to exclude Burkitt's lymphoma e.g. negative for MYC and BCL 6 rearrangement and also negative for T(14;18) MRI scan of the thoracic spine done on 2019 showed mass centered left T9 costovertebral joint, worrisome for neoplastic process/metastasis mass approximates the inferior margin of exiting left T8 nerve root. In effacement of normal fat signal within left T9-T10 neuralforamen, suspicious for tumor extension. CT scan of thoracic spine done on 06/12/2019 showed large destructive, expansile mass centered in the left paravertebral soft tissue and osseous structures about T8-9 level. Mass measures 3.3 x 2 x 3.5 cm with destruction of the lateral T8 and T9 vertebral bodies, lamina and left transverse processes and eighth rib. Next Soft tissue tumor extends into the foramina of T8-9 and T9-10 with a near contact on the lateral thecal sac. clinical stage ALLIE (liver involvement) Echo done on 07/03/2019 showed ejection fraction 65% and CT PET scan showed involvement of T8 and L4 and single lesion in the liver e.g. clinical stage IV E (liver involvement) Mid back pain Mr Carr has a history of chronic lower extremity edema bilaterally with chronic ulceration involving bilateral ankle anteriorly. Venous Doppler study done on 06/19/2019 showed no evidence of DVT but venous insufficiency. Lymphocytic infiltration of unknown biological significance per skin biopsy from right lateral abdomen done on 11/21/2017 and in the past skin biopsy from dorsum of right hand also showed atypical lymphocytes infiltrates possibilities include T cell lymphoproliferative disorder. No associated B symptoms and peripheral lymphadenopathy Patient has seen medical oncologist Dr. manning in [facility], who did some blood work up twice 6 months apart, as per patient it was negative. History of basal cell carcinoma involving left shoulder status post excision Mr Carr began treatment with R-CHOP on 07/12/2019. He does continue to require Neulasta support. He has tolerated treatment extremely well. He reports that all of his pain is gone. He states he feels he is doing great .Completed 6 cycles of R-CHOP in October 2019 With excellent response followed by [employer] prophylaxis with high-dose methotrexate x2 at [facility] completed on January 10, 2020 Plan: Discussed with patient regarding his labs white blood count 7 hemoglobin 11.3 g hematocrit 34.2 platelets 264,000 CMP within normal limits except glucose 145 and follow-up CT PET scan which was done on March 08, 2020 which shows no evidence of disease Clinically, patient is doing well with no B symptoms or other signs symptom suggestive of recurrence of disease his follow-up CT PET scan shows no evidence of disease and lab work-up also shows improvement in his mild anemia. So etiology of his progressive generalized weakness and fatigue could be multifactorial, considering his body weight, he may have sleep apnea, would benefit from sleep study, if confirmed, CPAP machine can improve his symptoms. Other possibility could be due to Keppra and patient is scheduled to see neurology and he will discuss with his neurologist regarding Keppra dose adjustment. As far as left knee skin lesions are concerned, patient has seen hat mender in the past, he was advised to see dermatology again and may require rebiopsy to confirm the diagnosis and management, patient may benefit from hyperbaric oxygenation. Patient will discuss with his PMD He will return to clinic in 3 months with CBC CMP and LDH in the meantime we will continue with monthly port flush. Signed By: Chuy Arriaza M.D. <<Signature on File>>
== END 2020-03-13 12:21 | disposition home or self-care (01) ==
LOC: ONCMED 12:23
PROVIDERS: PCP Family Medicine; Visit Provider Internal Medicine Hematology & Oncology
DX: C83.59 Lymphoblastic (diffuse) lymphoma, extranodal and solid organ sites (principal); L98.6 Other infiltrative disorders of the skin and subcutaneous tissue; M54.6 Pain in thoracic spine; Z79.899 Other long term (current) drug therapy
CPT/HCPCS: 36415; 80053; 83615; 85025; 99214

== ENCOUNTER 2020-04-08 13:13 | Outpatient (CLI) | payer OTHER, SELFPAY | END 2020-04-08 13:14 | disposition home or self-care (01) | LOC: WOUND 13:17 | PROVIDERS: PCP Family Medicine; Visit Provider Nurse Practitioner Family | DX: E11.622 Type 2 diabetes mellitus with other skin ulcer (principal); L97.822 Non-pressure chronic ulcer of other part of left lower leg with fat layer exposed | CPT/HCPCS: 11042; 11045; 87070; 87077; 87176; 87186; 87205; 88305; G0463 ==

== ENCOUNTER 2020-04-14 13:51 | Outpatient (CLI) | payer OTHER, SELFPAY | END 2020-04-14 13:52 | disposition home or self-care (01) | LOC: ONCMED 13:52 | PROVIDERS: PCP Family Medicine; Visit Provider Internal Medicine Hematology & Oncology | DX: Z45.2 Encounter for adjustment and management of vascular access device (principal) | CPT/HCPCS: 96523 ==

== ENCOUNTER 2020-04-15 09:38 | Outpatient (CLI) | payer OTHER, SELFPAY | END 2020-04-15 09:39 | disposition home or self-care (01) | LOC: WOUND 09:38 | PROVIDERS: PCP Family Medicine; Visit Provider Thoracic Surgery (Cardiothoracic Vascular Surgery) | DX: E11.622 Type 2 diabetes mellitus with other skin ulcer (principal); L97.822 Non-pressure chronic ulcer of other part of left lower leg with fat layer exposed | CPT/HCPCS: 11042; 11045 ==

== ENCOUNTER 2020-04-22 10:55 | Outpatient (CLI) | payer OTHER, SELFPAY | END 2020-04-22 10:56 | disposition home or self-care (01) | LOC: WOUND 10:55 | PROVIDERS: PCP Family Medicine; Visit Provider Thoracic Surgery (Cardiothoracic Vascular Surgery) | DX: E11.622 Type 2 diabetes mellitus with other skin ulcer (principal); L97.822 Non-pressure chronic ulcer of other part of left lower leg with fat layer exposed | CPT/HCPCS: 11042; 11045 ==

== ENCOUNTER 2020-04-29 09:26 | Outpatient (CLI) | payer OTHER, SELFPAY | END 2020-04-29 09:27 | disposition home or self-care (01) | LOC: WOUND 09:27 | PROVIDERS: PCP Family Medicine; Visit Provider Thoracic Surgery (Cardiothoracic Vascular Surgery) | DX: E11.622 Type 2 diabetes mellitus with other skin ulcer (principal); L97.822 Non-pressure chronic ulcer of other part of left lower leg with fat layer exposed | CPT/HCPCS: 11042; 11045 ==

== ENCOUNTER 2020-05-06 10:07 | Outpatient (CLI) | payer OTHER, SELFPAY | END 2020-05-06 10:08 | disposition home or self-care (01) | LOC: WOUND 10:07 | PROVIDERS: PCP Family Medicine; Visit Provider Thoracic Surgery (Cardiothoracic Vascular Surgery) | DX: E11.622 Type 2 diabetes mellitus with other skin ulcer (principal); L97.822 Non-pressure chronic ulcer of other part of left lower leg with fat layer exposed | CPT/HCPCS: 11042; 11045 ==

== ENCOUNTER 2020-05-08 12:17 | Outpatient (CLI) | payer OTHER, SELFPAY | END 2020-05-08 12:18 | disposition home or self-care (01) | LOC: ONCMED 12:19 | PROVIDERS: PCP Family Medicine; Visit Provider Internal Medicine Hematology & Oncology | DX: Z45.2 Encounter for adjustment and management of vascular access device (principal) | CPT/HCPCS: 96523 ==

== ENCOUNTER 2020-05-13 09:08 | Outpatient (CLI) | payer OTHER, SELFPAY | END 2020-05-13 09:09 | disposition home or self-care (01) | LOC: WOUND 09:08 | PROVIDERS: PCP Family Medicine; Visit Provider Thoracic Surgery (Cardiothoracic Vascular Surgery) | DX: E11.622 Type 2 diabetes mellitus with other skin ulcer (principal); L97.822 Non-pressure chronic ulcer of other part of left lower leg with fat layer exposed | CPT/HCPCS: 11042; 11045 ==

== ENCOUNTER 2020-06-03 10:49 | Outpatient (CLI) | payer OTHER, SELFPAY | END 2020-06-03 10:50 | disposition home or self-care (01) | LOC: WOUND 10:50 | PROVIDERS: PCP Family Medicine; Visit Provider Nurse Practitioner Family | DX: E11.622 Type 2 diabetes mellitus with other skin ulcer (principal); L97.822 Non-pressure chronic ulcer of other part of left lower leg with fat layer exposed | CPT/HCPCS: 11042; 11045 ==

== ENCOUNTER 2020-06-10 09:26 | Outpatient (CLI) | payer OTHER, SELFPAY | END 2020-06-10 09:27 | disposition home or self-care (01) | LOC: WOUND 09:30 | PROVIDERS: PCP Family Medicine; Visit Provider Thoracic Surgery (Cardiothoracic Vascular Surgery) | DX: E11.622 Type 2 diabetes mellitus with other skin ulcer (principal); L97.822 Non-pressure chronic ulcer of other part of left lower leg with fat layer exposed | CPT/HCPCS: 11042; 11045 ==

== ENCOUNTER 2020-06-12 13:16 | Outpatient (CLI) | payer OTHER, SELFPAY ==
[2020-06-12] MEDS: alteplase 1 mg/mL SDV 2 mL 2 MG INTRACATH (13:55)
[2020-06-12 14:19] LABS: Basophils % 0.6 %; Eosinophils # 0.2 10^3/uL (0.0-0.8); Eosinophils % 2.1 %; Hematocrit 36.1 % (42.0-52.0); Hemoglobin 11.8 g/dL (11.7-16.6); Lymphocytes # 1.7 10^3/uL (0.8-4.8); Lymphocytes % 23.7 %; Mean Corpuscular HGB Conc 32.7 g/dL (30.0-36.0); Mean Corpuscular Hemoglobin 30.9 pg (28.0-34.0); Mean Corpuscular Volume 94.5 fL (80-94); Mean Platelet Volume 9.1 fL (7.4-10.4); Monocytes # 0.7 10^3/uL (0.2-0.9); Monocytes % 9.3 %; Neutrophils # 4.48 10^3/uL (1.8-7.7); Neutrophils % 64.2 %; Nucleated Red Blood Cells % 0 %; Platelet Count 211 10^3/cmm (130-400); Red Blood Count 3.82 10^6/uL (4.1-5.3); Red Cell Distribution Width 13.2 % (12.1-15.1)
[2020-06-12 15:09] LABS: Alanine Aminotransferase 24 U/L (0-41); Alkaline Phosphatase 90 IU/L (40-130); Anion Gap 12.7 (5-19); Aspartate Amino Transferase 22 U/L (0-40); Blood Urea Nitrogen 18 mg/dL (8-23); Calcium 9.4 mg/dL (8.5-10.5); Carbon Dioxide 27 mmol/L (22-29); Chloride 98 mmol/L (98-107); Globulin 2.7 g/dL (1.3-4.6); Glucose 112 mg/dL (65-115); Lactate Dehydrogenase 168 U/L (135-225); Osmolality Calculated 281 mOsm/kg (285-295); Potassium 3.7 mmol/L (3.5-5.1); Sodium 134 mmol/L (136-145); Total Bilirubin 0.2 mg/dL (0.15-1.2); Total Protein 6.7 g/dL (6.6-8.7)
--- NOTE | 2020-06-20 12:03 | ONC FU_ITS ---
Dr. Arriaza follow up note Patient: Chang Carr Unit #: [id number]: 1945 Dicatated By: Chuy Arriaza M.D.Date of Visit:Jun 12, 2020 Onc Med Follow-up/Prog Note History of Present Illness: Mr. Carr is a 75-year-old gentleman with history of basal cell carcinoma involving left shoulder and left anterior shoulder status post excision. He has a history of lymphocytic infiltrate of the skin involving dorsum of the right hand, the possibility of T-cell lymphoma was not excluded. He was referred to Dr. Manning , medical oncologist in [place]. Mr Carr reports special blood tests were performed twice on 6 monthly basis and no abnormality was found. On 11/21/2017 during his follow-up dermatology exam he was found to have right lateral abdominal skin lesion. A biopsy was obtained and final pathology report showed changes compatible with lymphocytic infiltration off unknown biological significance. Mr Carr on 04/16/2019, that morning he got up with severe mid back pain. The pain was non-radiating; no lower extremity weakness; no urine or stool incontinence, no history of trauma to his back. He states he had seen a chiropractor one time without much help. He was seen by Dr. Osei and MRI scan of spine was ordered but patient could not lay flat on his back due to the severe pain. Tt was rescheduled finally on 05/28/2019. He underwent MRI scan of thoracic spine which showed a mass in paraspinal area involving left T9 costovertebral joint, worrisome for neoplastic process/metastasis. The mass approximated the inferior margin of exiting left T8 nerve root. In effacement of normal fat signal within the left T9-T10 neuroforamen. Suspicious for tumor extension which would affect course of exiting left T9 nerve root. CT scan of thoracic spine was done on 06/12/2019 showed large destructive, expansile mass centered in left paravertebral soft tissue and osseous structures about the T8-9 level. The mass measured 3.3 x 2 x 3.5 cm with a destruction of lateral T8 and T9 vertebral bodies, lamina and left transverse processes and eighth rib. Soft tissue tumor extends into the formen of T8-9 and T9-10 with near contact on the lateral thecal sac. 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 Positive for CD20, CD10 (weak) BCL 6, and p63 and Ki-67 90% of the tumor cell positive. Tumor cell negative for CD3, CD5, BCL 2, cyclin D1 and MYC, EB, ER, CD30, And kappa and lambda light chains. Mum 1, CK 7 CK 20, melanin, HMB-45 and TTF-1 ,NAPSIN A and chromogranin. No flow cytometry has been done. FISH studies are pending to rule out double hit type lymphoma or to exclude Burkitt's lymphoma. Mr Carr has denied any B symptoms, ie: night sweats, weight loss, peripheral lymphadenopathy, recurrent fevers. He denies any Vision changes and denies any hemoptysis or hematemesis. He denied any melena or hematochezia, any abdominal fullness, or any lower extremity paresthesia or numbness. Mr Carr began chemotherapy with R-CHOP on 07/14/2019. He did have chemo induced neutropenia with cycle 1 and required support with Neupogen. Since then he has been supported with Neulasta. He is tolerating the treatment well. His only complaint is that he has had some intermittent insomnia and states that the generally occurs 4 to 7 days post treatment. I suspect that this could be related to his high-dose steroids/prednisone. He states otherwise he is doing great. He states he is had no pain. His pain is been gone for the last couple of weeks. He states he actually feels like he can get up and a little bit more around the house although he is not overdoing it at this time. His appetite is better. He denies any nausea or vomiting. He has had no fever or chills. He denies any new neuropathy discomforts. He again denies any pain. He states his bowels are normal for him. He has chronic headaches and states he continues to have those intermittently but they are not chemo related according to his assessment. We did discuss that we do use Aloxi premed which could cause a headache so if he has problems with headache that is more than his normal he instructed to let us know. Thus far he has not been nauseated and antiemetics are working well. He is very pleasant and a great historian. His ECOG is 1. Patient has history of chronic lower extremity edema and chronic wounds involving lower extremity above both ankles anteriorly, recently done venous Doppler study on 06/19/2019 showed no evidence of DVT but venous insufficiency Patient has raised multiple skin lesions around left knee, as per patient he underwent biopsy and as per patient it was due to arthritis.CT PET scan done on showed T8 vertebral body involvement and L4 destructive lesion and 5 x 2.9 cm single hepatic lesion no lymphadenopathy seen. FISH showed no evidence of double hit or Burkitt's lymphoma e.g. negative for MYC, BCL6 rearrangement. Negative for T(14;18) Echocardiogram done on 06/27/2019 showed ejection fraction 65%, HIV status and hepatitis profile checked on 07/10/2019 came back nonreactive Started on systemic chemotherapy with R CHOP on 07/12/2019 Follow-up CT PET scan done on September 15, 2019, after 4 cycles of R-CHOP showed Multiple destructive osseous lesions at left eighth rib, T8 and anterior left fifth rib, L4 are now FDG negative and similarly hepatic mass in segment 4 is resolved. No new lesions are present e.g. complete response Patient was complaining of mid upper back pain especially with change in position so X-ray thoracic and lumbar spine done on October 17, 2019 showed no visualized fracture but mild degenerative disc disease and decrease in disc space height as per patient he has history of back surgery involving lumbar disc/vertebra, Patient went to [facility] for high-dose methotrexate therapy for [employer] prophylaxis and he received total 2 doses of high-dose methotrexate and last one was given on January 10, 2020. As per patient, he had episode of seizure-like activity on January 26 when he was visiting his daughter near [facility] and he was flown to [facility] in [place] where he underwent MRI scan of the head which shows no abnormality also had a EEG done and as per patient he had another witnessed seizure-like activity during the hospital, patient was started on Keppra with that he has no more episodes. As per patient he has history of seizure-like activity initially noticed in 2012 and then in October 2019, and third time in January 2020, he thinks every time sleep deprivation triggered the seizure-like activity, not being evaluated by neurology. Patient denies any episode of fever or confusion prior to the seizure .Follow-up CT PET scan done on March 08, 2020 showed negative for active lymphoma. Osseous lesions seen on previous scan are unchanged and FDG negative. No recurrent hepatic lymphoma. Reactive marrow and splenic activity seen previously has resolved. Came for follow-up, complaining of mid back pain, as per patient it is same spot where he was diagnosed with lymphoma, denies any trauma to his back denies any night sweats denies any recurrent fever denies any weight loss rather weight gain, denies any lower extremity numbness or weakness, pain is localized denies any overlying skin changes or swelling. Patient has seen dermatology for his left knee skin lesion for which he has undergone multiple skin biopsies done in March 2020 showed no evidence of malignancy with a necrotic and ulcerated surface with acute and chronic inflammation, as per patient recently he went to see Dr. Benavides, steward/stewardess third in [place] and underwent left knee skin biopsy last Tuesday and biopsy and cultures are pending. Medications: Acyclovir 1 Tablet (of 400 mg) Oral b.i.d., AmLODIPine Besylate 1 Tablet (of 5 mg) Oral daily, Svbkodkdop-JLEV-Newizizp 2 Tablet Oral b.i.d., Excedrin Extra Strength 1 - 2 Tablet (of 250-250-65 mg) Oral daily, Flonase 2 spray(s) (of 50 mcg/act) Suspension Nasal daily, Furosemide 1 Tablet (of 40 mg) Oral daily PRN, HydroCHLOROthiazide 1 Tablet (of 25 mg) Oral daily, HydrOXYzine Pamoate 1 Capsule (of 25 mg) Oral t.i.d., Keppra 1 Tablet (of 750 mg) Oral daily, Losartan Potassium 1 Tablet (of 100 mg) Oral daily, Omeprazole 1 Tablet (of 20 mg) Tablet, enteric coated Oral b.i.d., traZODone HCl 1 Tablet (of 50 mg) Oral at bedtime, Venlafaxine HCl ER 1 Capsule (of 150 mg) Capsule SR 24 HR Oral daily Allergies: IV Contrast dye Review of Systems: Review of Systems is not available for this patient. Vital Signs: Performed on Jun 12, 2020 14:58 Height - 70.00 in Weight - 258.4 lbs (HIGH) BSA - 2.33 sq.m BMI - 37.08 (HIGH) Temperature - 97.5 F (LOW) Pulse - 75 /min Respiration - 18 /min BP - 148/77 mm(hg) (HIGH) O2 Sat - 95 % (LOW) Pain - 4 Fatigue - 0 Performance Status: 1 - No physically strenuous activity, but ambulatory and able to carry out light or sedentary work (e.g. office work, light house work). (ECOG) Physical Examination: ENMT - No mouth sores, no thrush, no jaundice, no peripheral lymphadenopathy, Respiratory - Lungs are clear to auscultation, Cardiovascular - Regular rate and rhythm of heart, Abdomen - Soft, bowel sounds present, Extremities - No visible edema, no swelling or puffiness in the mid back area no overlying skin changes. Lab/Imaging: Test performed on Mar 13, 2020 12:39 LDH (Total) 165 U/L Sodium 138 mmol/L Potassium 3.6 mmol/L Chloride 104 mmol/L CO2 25 mmol/L Anion Gap 12.6 BUN 11 mg/dL Creatinine 0.7 mg/dL Cr Clearance (Est) 145.4400 mL/min Glucose 145 mg/dL Osmolality - Calculated 288 mOsm/kg Calcium 9.8 mg/dL Protein, Total 6.4 g/dL Albumin 4.1 g/dL Globulin 2.3 g/dL Bilirubin, Total 0.2 mg/dL ALT (SGPT) 26 U/L AST (SGOT) 21 U/L Alkaline Phosphatase 104 IU/L WBC 7.0 10 3/uL RBC 3.73 10 6/uL HGB 11.3 g/dL HCT 34.2 % MCV 91.7 fL MCH 30.3 pg MCHC 33.0 g/dL RDW 14.1 % Platelet Count 264 10 3/cmm MPV 9.1 fL Neutrophils 4.43 10 3/uL Lymphocytes 1.6 10 3/uL Monocytes 0.7 10 3/uL Eosinophils 0.3 10 3/uL Basophils 0.0 10 3/uL Neutrophil % 62.9 % Lymphocyte % 22.9 % Monocyte % 9.7 % Eosinophil % 3.6 % Basophils % 0.6 % NRBC % 0 % Impression: High-grade B-cell lymphoma, with blastoid morphology, but CT-guided biopsy of left paraspinal mass done on 06/24/2019 which showed 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 No flow cytometry done. FISH studies ruled out double hit type lymphoma or to exclude Burkitt's lymphoma e.g. negative for MYC and BCL 6 rearrangement and also negative for T(14;18) MRI scan of the thoracic spine done on 2019 showed mass centered left T9 costovertebral joint, worrisome for neoplastic process/metastasis mass approximates the inferior margin of exiting left T8 nerve root. In effacement of normal fat signal within left T9-T10 neuralforamen, suspicious for tumor extension. CT scan of thoracic spine done on 06/12/2019 showed large destructive, expansile mass centered in the left paravertebral soft tissue and osseous structures about T8-9 level. Mass measures 3.3 x 2 x 3.5 cm with destruction of the lateral T8 and T9 vertebral bodies, lamina and left transverse processes and eighth rib. Next Soft tissue tumor extends into the foramina of T8-9 and T9-10 with a near contact on the lateral thecal sac. clinical stage ALLIE (liver involvement) Echo done on 07/03/2019 showed ejection fraction 65% and CT PET scan showed involvement of T8 and L4 and single lesion in the liver e.g. clinical stage IV E (liver involvement) Mid back pain Mr Carr has a history of chronic lower extremity edema bilaterally with chronic ulceration involving bilateral ankle anteriorly. Venous Doppler study done on 06/19/2019 showed no evidence of DVT but venous insufficiency. Lymphocytic infiltration of unknown biological significance per skin biopsy from right lateral abdomen done on 11/21/2017 and in the past skin biopsy from dorsum of right hand also showed atypical lymphocytes infiltrates possibilities include T cell lymphoproliferative disorder. No associated B symptoms and peripheral lymphadenopathy Patient has seen medical oncologist Dr. manning in [facility], who did some blood work up twice 6 months apart, as per patient it was negative. History of basal cell carcinoma involving left shoulder status post excision Mr Carr began treatment with R-CHOP on 07/12/2019. He does continue to require Neulasta support. He has tolerated treatment extremely well. He reports that all of his pain is gone. He states he feels he is doing great .Completed 6 cycles of R-CHOP in October 2019 With excellent response followed by [employer] prophylaxis with high-dose methotrexate x2 at [facility] completed on January 10, 2020 Plan: Discussed with patient regarding his labs white blood count 7 hemoglobin 11.8 g compared to 11.3 g on March 13, 2020 hematocrit 36.1 platelets 211,000 CMP within normal limits LDH 168 Clinically, patient is doing well with no new signs symptoms suggestive of recurrence of disease but concern is a recurrence of mid back pain which could be musculoskeletal in origin but concern is lymphoma so we will consider MRI scan of thoracic and lumbar spine if it shows no abnormality, may consider CT PET scan to assess disease status. In the meantime we will give him prescription for pain medication and he will take it as directed. Return to clinic after MRI scan of the thoracic and lumbar spine done Signed By: Chuy Arriaza M.D. <<Signature on File>>
== END 2020-06-12 13:17 | disposition home or self-care (01) ==
LOC: ONCMED 13:18
PROVIDERS: PCP Family Medicine; Visit Provider Internal Medicine Hematology & Oncology
DX: M54.6 Pain in thoracic spine (principal); C83.59 Lymphoblastic (diffuse) lymphoma, extranodal and solid organ sites; Z85.828 Personal history of other malignant neoplasm of skin; Z92.21 Personal history of antineoplastic chemotherapy
CPT/HCPCS: 36415; 36593; 80053; 83615; 85025; 96374; 99214; J2997

== ENCOUNTER 2020-06-17 09:21 | Outpatient (CLI) | payer OTHER, SELFPAY | END 2020-06-17 09:22 | disposition home or self-care (01) | LOC: WOUND 09:22 | PROVIDERS: PCP Family Medicine; Visit Provider Thoracic Surgery (Cardiothoracic Vascular Surgery) | DX: E11.622 Type 2 diabetes mellitus with other skin ulcer (principal); L97.822 Non-pressure chronic ulcer of other part of left lower leg with fat layer exposed | CPT/HCPCS: 11042; 11045 ==

== ENCOUNTER 2020-06-24 08:32 | Outpatient (CLI) | payer OTHER, SELFPAY | END 2020-06-24 08:33 | disposition home or self-care (01) | LOC: WOUND 08:33 | PROVIDERS: PCP Family Medicine; Visit Provider Thoracic Surgery (Cardiothoracic Vascular Surgery) | DX: E11.622 Type 2 diabetes mellitus with other skin ulcer (principal); L97.822 Non-pressure chronic ulcer of other part of left lower leg with fat layer exposed | CPT/HCPCS: 11042; 11045 ==

== ENCOUNTER 2020-07-02 12:24 | Outpatient (CLI) | payer OTHER, SELFPAY ==
--- NOTE | 2020-07-02 12:34 | MR_ITS ---
WS: [id number] MRI LUMBAR SPINE WITH AND WITHOUT CONTRAST HISTORY: HX OF Cancer; back Pain; tingling NUMBNESS COMPARISON: PET CT 03/08/2020, TECHNIQUE: Sagittal and axial multisequence imaging is submitted. Postcontrast imaging also performed . Mild straightening of the normal lumbar lordosis. Marrow signal is normal. Schmorl's node defect in t he inferior endplate of L4. No increased signal on the STIR sequences. Mild disc desiccation and narrowing at L4-5 and L5-S1. Conus terminates normally at L1. L1-L2: Normal. L2-L3: Normal. L3-L4: Mild annular disc bulge and ligamentum flavum hypertrophy. Very mild narrowing of the lateral recesses. L4-L5: Mild annular disc bulging and osteophytic ridging with mild facet arthritis. Mild bilateral fo raminal narrowing. L5-S1: Mild annular disc bulging and osteophytic ridging with moderate facet disease. LEFT laminectom y defect. Very slight clumping of the nerve roots in the thecal sac. No recurrent disc herniation or stenosis. Mild bilateral foraminal narrowing. No evidence for discitis or osteomyelitis or paravertebral enhancement. Simple 13 mm RIGHT renal cyst. MR/MR lumbar spine wo/w con [id number] IMPRESSION: 1. No evidence for metastatic disease or abnormal enhancement throughout the l umbar spine. 2. Mild bilateral foraminal narrowing at L4-5 and L5-S1. 3. LEFT laminectomy defect at L5-S1.
--- NOTE | 2020-07-02 12:34 | MR_ITS ---
WS: [id number] MRI THORACIC SPINE with and without contrast. HISTORY: HX OF CANCER;BACK Pain; tingling NUMBNESS COMPARISON: CT 06/12/2019 and prior MRI 05/25/2019 TECHNIQUE: Multiplanar sequences are performed in sagittal and axial planes. Post contrast imaging pe rformed. Slight increase in the thoracic kyphosis. Mild disc space narrowing throughout the vertebral bodies. No acute fracture or marrow edema. No low signal abnormalities on the T1 sequences. T1-2: Normal. T2-3: Normal. T3-4: Normal. T4-5: Normal. T5-6: Normal. T6-7: Normal. T7-8: Very shallow central disc protrusion with cord contact. T8-9: Shallow central disc protrusion with slight cord contact. T9-10: Mild LEFT foraminal narrowing due to osteophyte disease. T10-11: Normal. T11-12: Normal. On the postcontrast image there some very mild enhancement involving the LEFT eighth and ninth ribs a nd the adjacent soft tissues. There is very slight enhancement extending into the LEFT foramen T9. En hancement is just inferior to the LEFT T9 pedicle. MR/MR thoracic spine wo/w [id number] IMPRESSION: 1. Minimal amount of enhancement and increased soft tissue in the LEFT paraver tebral soft tissues at T8 and T9. Very early recurrence of neoplasm is not excl uded. The enhancement suggests this may be recurrent disease. 2. The remaining vertebral bodies are negative for acute process. 3. Shallow central disc protrusions at T7-8 and T8-9 with mild cord contact.
[2020-07-02] MEDS: gadobenate dimeglumine 20 mL vial IV (13:14)
== END 2020-07-02 12:25 | disposition home or self-care (01) ==
LOC: RADSHAW 12:25
PROVIDERS: PCP Family Medicine; Visit Provider Internal Medicine Hematology & Oncology
DX: R20.0 Anesthesia of skin (principal); R20.2 Paresthesia of skin; M51.24 Other intervertebral disc displacement, thoracic region; M96.1 Postlaminectomy syndrome, not elsewhere classified; M48.061 Spinal stenosis, lumbar region without neurogenic claudication; M48.07 Spinal stenosis, lumbosacral region
CPT/HCPCS: 72157; 72158; A9577

== ENCOUNTER 2020-07-08 08:47 | Outpatient (CLI) | payer OTHER, SELFPAY | END 2020-07-08 08:48 | disposition home or self-care (01) | LOC: WOUND 08:48 | PROVIDERS: PCP Family Medicine; Visit Provider Thoracic Surgery (Cardiothoracic Vascular Surgery) | DX: E11.622 Type 2 diabetes mellitus with other skin ulcer (principal); L97.822 Non-pressure chronic ulcer of other part of left lower leg with fat layer exposed | CPT/HCPCS: 11042; 11045 ==

== ENCOUNTER 2020-07-09 05:56 | Outpatient (CLI) | payer OTHER, SELFPAY ==
--- NOTE | 2020-08-07 15:50 | ONC FU_ITS ---
Dr. Arriaza follow up note Patient: Chang Carr Unit #: [id number]: 1945 Dicatated By: Chuy Arriaza M.D.Date of Visit:Jul 09, 2020 Onc Med Follow-up/Prog Note History of Present Illness: Mr. Carr is a 75-year-old gentleman with history of basal cell carcinoma involving left shoulder and left anterior shoulder status post excision. He has a history of lymphocytic infiltrate of the skin involving dorsum of the right hand, the possibility of T-cell lymphoma was not excluded. He was referred to Dr. Manning , medical oncologist in [place]. Mr Carr reports special blood tests were performed twice on 6 monthly basis and no abnormality was found. On 11/21/2017 during his follow-up dermatology exam he was found to have right lateral abdominal skin lesion. A biopsy was obtained and final pathology report showed changes compatible with lymphocytic infiltration off unknown biological significance. Mr Carr on 04/16/2019, that morning he got up with severe mid back pain. The pain was non-radiating; no lower extremity weakness; no urine or stool incontinence, no history of trauma to his back. He states he had seen a chiropractor one time without much help. He was seen by Dr. Osei and MRI scan of spine was ordered but patient could not lay flat on his back due to the severe pain. Tt was rescheduled finally on 05/28/2019. He underwent MRI scan of thoracic spine which showed a mass in paraspinal area involving left T9 costovertebral joint, worrisome for neoplastic process/metastasis. The mass approximated the inferior margin of exiting left T8 nerve root. In effacement of normal fat signal within the left T9-T10 neuroforamen. Suspicious for tumor extension which would affect course of exiting left T9 nerve root. CT scan of thoracic spine was done on 06/12/2019 showed large destructive, expansile mass centered in left paravertebral soft tissue and osseous structures about the T8-9 level. The mass measured 3.3 x 2 x 3.5 cm with a destruction of lateral T8 and T9 vertebral bodies, lamina and left transverse processes and eighth rib. Soft tissue tumor extends into the formen of T8-9 and T9-10 with near contact on the lateral thecal sac. 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 Positive for CD20, CD10 (weak) BCL 6, and p63 and Ki-67 90% of the tumor cell positive. Tumor cell negative for CD3, CD5, BCL 2, cyclin D1 and MYC, EB, ER, CD30, And kappa and lambda light chains. Mum 1, CK 7 CK 20, melanin, HMB-45 and TTF-1 ,NAPSIN A and chromogranin. No flow cytometry has been done. FISH studies are pending to rule out double hit type lymphoma or to exclude Burkitt's lymphoma. Mr Carr has denied any B symptoms, ie: night sweats, weight loss, peripheral lymphadenopathy, recurrent fevers. He denies any Vision changes and denies any hemoptysis or hematemesis. He denied any melena or hematochezia, any abdominal fullness, or any lower extremity paresthesia or numbness. Mr Carr began chemotherapy with R-CHOP on 07/14/2019. He did have chemo induced neutropenia with cycle 1 and required support with Neupogen. Since then he has been supported with Neulasta. He is tolerating the treatment well. His only complaint is that he has had some intermittent insomnia and states that the generally occurs 4 to 7 days post treatment. I suspect that this could be related to his high-dose steroids/prednisone. He states otherwise he is doing great. He states he is had no pain. His pain is been gone for the last couple of weeks. He states he actually feels like he can get up and a little bit more around the house although he is not overdoing it at this time. His appetite is better. He denies any nausea or vomiting. He has had no fever or chills. He denies any new neuropathy discomforts. He again denies any pain. He states his bowels are normal for him. He has chronic headaches and states he continues to have those intermittently but they are not chemo related according to his assessment. We did discuss that we do use Aloxi premed which could cause a headache so if he has problems with headache that is more than his normal he instructed to let us know. Thus far he has not been nauseated and antiemetics are working well. He is very pleasant and a great historian. His ECOG is 1. Patient has history of chronic lower extremity edema and chronic wounds involving lower extremity above both ankles anteriorly, recently done venous Doppler study on 06/19/2019 showed no evidence of DVT but venous insufficiency Patient has raised multiple skin lesions around left knee, as per patient he underwent biopsy and as per patient it was due to arthritis.CT PET scan done on showed T8 vertebral body involvement and L4 destructive lesion and 5 x 2.9 cm single hepatic lesion no lymphadenopathy seen. FISH showed no evidence of double hit or Burkitt's lymphoma e.g. negative for MYC, BCL6 rearrangement. Negative for T(14;18) Echocardiogram done on 06/27/2019 showed ejection fraction 65%, HIV status and hepatitis profile checked on 07/10/2019 came back nonreactive Started on systemic chemotherapy with R CHOP on 07/12/2019 Follow-up CT PET scan done on September 15, 2019, after 4 cycles of R-CHOP showed Multiple destructive osseous lesions at left eighth rib, T8 and anterior left fifth rib, L4 are now FDG negative and similarly hepatic mass in segment 4 is resolved. No new lesions are present e.g. complete response Patient was complaining of mid upper back pain especially with change in position so X-ray thoracic and lumbar spine done on October 17, 2019 showed no visualized fracture but mild degenerative disc disease and decrease in disc space height as per patient he has history of back surgery involving lumbar disc/vertebra, Patient went to [facility] for high-dose methotrexate therapy for [facility] prophylaxis and he received total 2 doses of high-dose methotrexate and last one was given on January 10, 2020. As per patient, he had episode of seizure-like activity on January 26 when he was visiting his daughter near [facility] and he was flown to [facility] in [place] where he underwent MRI scan of the head which shows no abnormality also had a EEG done and as per patient he had another witnessed seizure-like activity during the hospital, patient was started on Keppra with that he has no more episodes. As per patient he has history of seizure-like activity initially noticed in 2012 and then in October 2019, and third time in January 2020, he thinks every time sleep deprivation triggered the seizure-like activity, not being evaluated by neurology. Patient denies any episode of fever or confusion prior to the seizure .Follow-up CT PET scan done on March 08, 2020 showed negative for active lymphoma. Osseous lesions seen on previous scan are unchanged and FDG negative. No recurrent hepatic lymphoma. Reactive marrow and splenic activity seen previously has resolved. Follow-up MRI scan of thoracic and lumbar spine done on July 02, 2020 showed minimal amount of enhancement and increased soft tissue in the left paravertebral soft tissues at T8 and T9. Very early recurrence of neoplasm is not excluded.. The remaining vertebral bodies are negative for acute process. Shallow central disc protrusions at T7-8 and T8 - 9 and MRI lumbar spine showed no abnormality except left laminectomy defect at L5-S1 Came for follow-up, still complaining of mid back pain but no urine or stool incontinence, no radiation to lower extremities, no fever chills, no night sweats, no recurrent fevers, no weight loss. Patient said in the past he used to get cortisone shots to his lower back and this pain appears similar to that Medications: Acyclovir 1 Tablet (of 400 mg) Oral b.i.d., AmLODIPine Besylate 1 Tablet (of 5 mg) Oral daily, Xeimewtxmo-SPFP-Yiccmasw 2 Tablet Oral b.i.d., Excedrin Extra Strength 1 - 2 Tablet (of 250-250-65 mg) Oral daily, Flonase 2 spray(s) (of 50 mcg/act) Suspension Nasal daily, Furosemide 1 Tablet (of 40 mg) Oral daily PRN, HydroCHLOROthiazide 1 Tablet (of 25 mg) Oral daily, HydrOXYzine Pamoate 1 Capsule (of 25 mg) Oral t.i.d., Keppra 1 Tablet (of 750 mg) Oral daily, Losartan Potassium 1 Tablet (of 100 mg) Oral daily, Omeprazole 1 Tablet (of 20 mg) Tablet, enteric coated Oral b.i.d., traZODone HCl 1 Tablet (of 50 mg) Oral at bedtime, Venlafaxine HCl ER 1 Capsule (of 150 mg) Capsule SR 24 HR Oral daily Allergies: IV Contrast dye Review of Systems: Review of Systems is not available for this patient. Vital Signs: Performed on Jul 09, 2020 13:10 Height - 70.00 in Weight - 254.6 lbs (LOW) BSA - 2.31 sq.m BMI - 36.53 (HIGH) Temperature - 98.1 F (LOW) Pulse - 75 /min Respiration - 18 /min BP - 136/71 mm(hg) O2 Sat - 92 % (LOW) Pain - 0 Fatigue - 4 Performance Status: 0 - Fully active, able to carry on all predisease activities without restrictions. (ECOG) Physical Examination: ENMT - No mouth sores, no thrush, no jaundice, No cervical lymphadenopathy or axillary lymphadenopathy, Respiratory - Lungs are clear to auscultation, Cardiovascular - Regular rate and rhythm of heart, Abdomen - Soft, bowel sounds present, Extremities - No visible edema. Lab/Imaging: Test performed on Mar 13, 2020 12:39 LDH (Total) 165 U/L Sodium 138 mmol/L Potassium 3.6 mmol/L Chloride 104 mmol/L CO2 25 mmol/L Anion Gap 12.6 BUN 11 mg/dL Creatinine 0.7 mg/dL Cr Clearance (Est) 145.4400 mL/min Glucose 145 mg/dL Osmolality - Calculated 288 mOsm/kg Calcium 9.8 mg/dL Protein, Total 6.4 g/dL Albumin 4.1 g/dL Globulin 2.3 g/dL Bilirubin, Total 0.2 mg/dL ALT (SGPT) 26 U/L AST (SGOT) 21 U/L Alkaline Phosphatase 104 IU/L WBC 7.0 10 3/uL RBC 3.73 10 6/uL HGB 11.3 g/dL HCT 34.2 % MCV 91.7 fL MCH 30.3 pg MCHC 33.0 g/dL RDW 14.1 % Platelet Count 264 10 3/cmm MPV 9.1 fL Neutrophils 4.43 10 3/uL Lymphocytes 1.6 10 3/uL Monocytes 0.7 10 3/uL Eosinophils 0.3 10 3/uL Basophils 0.0 10 3/uL Neutrophil % 62.9 % Lymphocyte % 22.9 % Monocyte % 9.7 % Eosinophil % 3.6 % Basophils % 0.6 % NRBC % 0 % Impression: High-grade B-cell lymphoma, with blastoid morphology, but CT-guided biopsy of left paraspinal mass done on 06/24/2019 which showed 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 No flow cytometry done. FISH studies ruled out double hit type lymphoma or to exclude Burkitt's lymphoma e.g. negative for MYC and BCL 6 rearrangement and also negative for T(14;18) MRI scan of the thoracic spine done on 2019 showed mass centered left T9 costovertebral joint, worrisome for neoplastic process/metastasis mass approximates the inferior margin of exiting left T8 nerve root. In effacement of normal fat signal within left T9-T10 neuralforamen, suspicious for tumor extension. CT scan of thoracic spine done on 06/12/2019 showed large destructive, expansile mass centered in the left paravertebral soft tissue and osseous structures about T8-9 level. Mass measures 3.3 x 2 x 3.5 cm with destruction of the lateral T8 and T9 vertebral bodies, lamina and left transverse processes and eighth rib. Next Soft tissue tumor extends into the foramina of T8-9 and T9-10 with a near contact on the lateral thecal sac. clinical stage ALLIE (liver involvement) Echo done on 07/03/2019 showed ejection fraction 65% and CT PET scan showed involvement of T8 and L4 and single lesion in the liver e.g. clinical stage IV E (liver involvement) Mid back pain Mr Carr has a history of chronic lower extremity edema bilaterally with chronic ulceration involving bilateral ankle anteriorly. Venous Doppler study done on 06/19/2019 showed no evidence of DVT but venous insufficiency. Lymphocytic infiltration of unknown biological significance per skin biopsy from right lateral abdomen done on 11/21/2017 and in the past skin biopsy from dorsum of right hand also showed atypical lymphocytes infiltrates possibilities include T cell lymphoproliferative disorder. No associated B symptoms and peripheral lymphadenopathy Patient has seen medical oncologist Dr. manning in [facility], who did some blood work up twice 6 months apart, as per patient it was negative. History of basal cell carcinoma involving left shoulder status post excision Mr Bruno began treatment with R-CHOP on 07/12/2019. He does continue to require Neulasta support. He has tolerated treatment extremely well. He reports that all of his pain is gone. He states he feels he is doing great .Completed 6 cycles of R-CHOP in October 2019 With excellent response followed by [facility] prophylaxis with high-dose methotrexate x2 at [facility] completed on January 10, 2020 Plan: Discussed with patient regarding his MRI scan of thoracic and lumbar findings, which showed minimal amount of enhancement and increased soft tissue in the left paravertebral soft tissues at the 8 and T9, very early recurrence of neoplasm is not excluded and also showed shallow central disc protrusions at T7-8 and T8-9 with mild cord contact Case was also discussed with radiation oncology, at this point, it is not clear whether pain is due to minimal enhancement and increased soft tissue in the left paravertebral area of T8 -9 or central disc protrusion at T7-8 or T8 and 9 thus we will refer him to orthopedic for evaluation, he may benefit from cortisone injection where disc protrusion is. And In a month,we will repeat his MRI scan of thoracic spine with special attention to thoracic vertebra T8-9 and T7 and 8 and if there is evidence of progression, will consider CT PET scan if that shows no other abnormality, will consider radiation therapy to the involved area. Patient return to clinic in 1 month with follow-up MRI scan of the thoracic spine and CBC and CMP. Patient was advised in case there is a worsening of symptoms or any paresthesia or numbness in the lower extremity or urine or stool incontinence he need to call us or need to go to emergency room immediately Signed By: Chuy Arriaza M.D. <<Signature on File>>
== END 2020-07-09 05:57 | disposition home or self-care (01) ==
LOC: ONCMED 05:57
PROVIDERS: PCP Family Medicine; Visit Provider Internal Medicine Hematology & Oncology
DX: C83.59 Lymphoblastic (diffuse) lymphoma, extranodal and solid organ sites (principal); L98.6 Other infiltrative disorders of the skin and subcutaneous tissue; M54.6 Pain in thoracic spine; I87.2 Venous insufficiency (chronic) (peripheral); Z85.828 Personal history of other malignant neoplasm of skin; Z79.52 Long term (current) use of systemic steroids; Z79.899 Other long term (current) drug therapy
CPT/HCPCS: 99214

== ENCOUNTER 2020-07-22 10:00 | Outpatient (CLI) | payer OTHER, SELFPAY | END 2020-07-22 10:01 | disposition home or self-care (01) | LOC: WOUND 10:00 | PROVIDERS: PCP Family Medicine; Visit Provider Thoracic Surgery (Cardiothoracic Vascular Surgery) | DX: E11.622 Type 2 diabetes mellitus with other skin ulcer (principal); L97.822 Non-pressure chronic ulcer of other part of left lower leg with fat layer exposed | CPT/HCPCS: 11042; 11045 ==

== ENCOUNTER 2020-07-29 10:15 | Outpatient (CLI) | payer OTHER, SELFPAY | END 2020-07-29 10:16 | disposition home or self-care (01) | LOC: WOUND 10:15 | PROVIDERS: PCP Family Medicine; Visit Provider Thoracic Surgery (Cardiothoracic Vascular Surgery) | DX: E11.622 Type 2 diabetes mellitus with other skin ulcer (principal); L97.822 Non-pressure chronic ulcer of other part of left lower leg with fat layer exposed | CPT/HCPCS: 11042; 11045 ==

== ENCOUNTER → 2020-07-31 14:16 | Outpatient (BNVA) | payer OTHER, SELFPAY | PROVIDERS: PCP Family Medicine; Referring Provider Internal Medicine Hematology & Oncology; Visit Provider Orthopaedic Surgery | DX: M54.9 Dorsalgia, unspecified (principal) | CPT/HCPCS: 72072 ==

== ENCOUNTER 2020-08-07 13:45 | Outpatient (CLI) | payer OTHER, SELFPAY ==
[2020-08-07 14:27] LABS: Basophils % 0.2 %; Hematocrit 37.1 % (42.0-52.0); Hemoglobin 12.1 g/dL (11.7-16.6); Lymphocytes # 1.2 10^3/uL (0.8-4.8); Mean Corpuscular HGB Conc 32.6 g/dL (30.0-36.0); Mean Corpuscular Hemoglobin 30.4 pg (28.0-34.0); Mean Corpuscular Volume 93.2 fL (80-94); Mean Platelet Volume 9.2 fL (7.4-10.4); Monocytes # 0.3 10^3/uL (0.2-0.9); Monocytes % 2.9 %; Neutrophils # 8.06 10^3/uL (1.8-7.7); Neutrophils % 84.1 %; Nucleated Red Blood Cells % 0 %; Platelet Count 231 10^3/cmm (130-400); Red Blood Count 3.98 10^6/uL (4.1-5.3); Red Cell Distribution Width 13.7 % (12.1-15.1); White Blood Count 9.6 10^3/uL (4.0-10.0)
[2020-08-07 14:54] LABS: Alanine Aminotransferase 27 U/L (0-41); Albumin Level 4.1 g/dL (3.5-5.2); Alkaline Phosphatase 89 IU/L (40-130); Aspartate Amino Transferase 20 U/L (0-40); Blood Urea Nitrogen 21 mg/dL (8-23); Calcium 8.6 mg/dL (8.5-10.5); Carbon Dioxide 26 mmol/L (22-29); Chloride 99 mmol/L (98-107); Globulin 2.4 g/dL (1.3-4.6); Glucose 160 mg/dL (65-115); Osmolality Calculated 284 mOsm/kg (285-295); Sodium 134 mmol/L (136-145); Total Bilirubin 0.2 mg/dL (0.15-1.2); Total Protein 6.5 g/dL (6.6-8.7)
--- NOTE | 2020-09-05 12:08 | ONC FU_ITS ---
Dr. Arriaza follow up note Patient: Chang Carr Unit #: [id number]: 1945 Dicatated By: Chuy Arriaza M.D.Date of Visit:Aug 07, 2020 Onc Med Follow-up/Prog Note History of Present Illness: Mr. Carr is a 75-year-old gentleman with history of basal cell carcinoma involving left shoulder and left anterior shoulder status post excision. He has a history of lymphocytic infiltrate of the skin involving dorsum of the right hand, the possibility of T-cell lymphoma was not excluded. He was referred to Dr. Manning , medical oncologist in [place]. Mr Carr reports special blood tests were performed twice on 6 monthly basis and no abnormality was found. On 11/21/2017 during his follow-up dermatology exam he was found to have right lateral abdominal skin lesion. A biopsy was obtained and final pathology report showed changes compatible with lymphocytic infiltration off unknown biological significance. Mr Carr on 04/16/2019, that morning he got up with severe mid back pain. The pain was non-radiating; no lower extremity weakness; no urine or stool incontinence, no history of trauma to his back. He states he had seen a chiropractor one time without much help. He was seen by Dr. Osei and MRI scan of spine was ordered but patient could not lay flat on his back due to the severe pain. Tt was rescheduled finally on 05/28/2019. He underwent MRI scan of thoracic spine which showed a mass in paraspinal area involving left T9 costovertebral joint, worrisome for neoplastic process/metastasis. The mass approximated the inferior margin of exiting left T8 nerve root. In effacement of normal fat signal within the left T9-T10 neuroforamen. Suspicious for tumor extension which would affect course of exiting left T9 nerve root. CT scan of thoracic spine was done on 06/12/2019 showed large destructive, expansile mass centered in left paravertebral soft tissue and osseous structures about the T8-9 level. The mass measured 3.3 x 2 x 3.5 cm with a destruction of lateral T8 and T9 vertebral bodies, lamina and left transverse processes and eighth rib. Soft tissue tumor extends into the formen of T8-9 and T9-10 with near contact on the lateral thecal sac. 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 Positive for CD20, CD10 (weak) BCL 6, and p63 and Ki-67 90% of the tumor cell positive. Tumor cell negative for CD3, CD5, BCL 2, cyclin D1 and MYC, EB, ER, CD30, And kappa and lambda light chains. Mum 1, CK 7 CK 20, melanin, HMB-45 and TTF-1 ,NAPSIN A and chromogranin. No flow cytometry has been done. FISH studies are pending to rule out double hit type lymphoma or to exclude Burkitt's lymphoma. Mr Carr has denied any B symptoms, ie: night sweats, weight loss, peripheral lymphadenopathy, recurrent fevers. He denies any Vision changes and denies any hemoptysis or hematemesis. He denied any melena or hematochezia, any abdominal fullness, or any lower extremity paresthesia or numbness. Mr Carr began chemotherapy with R-CHOP on 07/14/2019. He did have chemo induced neutropenia with cycle 1 and required support with Neupogen. Since then he has been supported with Neulasta. He is tolerating the treatment well. His only complaint is that he has had some intermittent insomnia and states that the generally occurs 4 to 7 days post treatment. I suspect that this could be related to his high-dose steroids/prednisone. He states otherwise he is doing great. He states he is had no pain. His pain is been gone for the last couple of weeks. He states he actually feels like he can get up and a little bit more around the house although he is not overdoing it at this time. His appetite is better. He denies any nausea or vomiting. He has had no fever or chills. He denies any new neuropathy discomforts. He again denies any pain. He states his bowels are normal for him. He has chronic headaches and states he continues to have those intermittently but they are not chemo related according to his assessment. We did discuss that we do use Aloxi premed which could cause a headache so if he has problems with headache that is more than his normal he instructed to let us know. Thus far he has not been nauseated and antiemetics are working well. He is very pleasant and a great historian. His ECOG is 1. Patient has history of chronic lower extremity edema and chronic wounds involving lower extremity above both ankles anteriorly, recently done venous Doppler study on 06/19/2019 showed no evidence of DVT but venous insufficiency Patient has raised multiple skin lesions around left knee, as per patient he underwent biopsy and as per patient it was due to arthritis.CT PET scan done on showed T8 vertebral body involvement and L4 destructive lesion and 5 x 2.9 cm single hepatic lesion no lymphadenopathy seen. FISH showed no evidence of double hit or Burkitt's lymphoma e.g. negative for MYC, BCL6 rearrangement. Negative for T(14;18) Echocardiogram done on 06/27/2019 showed ejection fraction 65%, HIV status and hepatitis profile checked on 07/10/2019 came back nonreactive Started on systemic chemotherapy with R CHOP on 07/12/2019 Follow-up CT PET scan done on September 15, 2019, after 4 cycles of R-CHOP showed Multiple destructive osseous lesions at left eighth rib, T8 and anterior left fifth rib, L4 are now FDG negative and similarly hepatic mass in segment 4 is resolved. No new lesions are present e.g. complete response Patient was complaining of mid upper back pain especially with change in position so X-ray thoracic and lumbar spine done on October 17, 2019 showed no visualized fracture but mild degenerative disc disease and decrease in disc space height as per patient he has history of back surgery involving lumbar disc/vertebra, Patient went to [place] for high-dose methotrexate therapy for [employer] prophylaxis and he received total 2 doses of high-dose methotrexate and last one was given on January 10, 2020. As per patient, he had episode of seizure-like activity on January 26 when he was visiting his daughter near [facility] and he was flown to [facility] in [place] where he underwent MRI scan of the head which shows no abnormality also had a EEG done and as per patient he had another witnessed seizure-like activity during the hospital, patient was started on Keppra with that he has no more episodes. As per patient he has history of seizure-like activity initially noticed in 2012 and then in October 2019, and third time in January 2020, he thinks every time sleep deprivation triggered the seizure-like activity, not being evaluated by neurology. Patient denies any episode of fever or confusion prior to the seizure .Follow-up CT PET scan done on March 08, 2020 showed negative for active lymphoma. Osseous lesions seen on previous scan are unchanged and FDG negative. No recurrent hepatic lymphoma. Reactive marrow and splenic activity seen previously has resolved. Follow-up MRI scan of thoracic and lumbar spine done on July 02, 2020 showed minimal amount of enhancement and increased soft tissue in the left paravertebral soft tissues at T8 and T9. Very early recurrence of neoplasm is not excluded.. The remaining vertebral bodies are negative for acute process. Shallow central disc protrusions at T7-8 and T8 - 9 and MRI lumbar spine showed no abnormality except left laminectomy defect at L5-S1 Came for follow-up, denies any specific complaint except persistent discomfort/pain in the mid upper back, patient has seen orthopedics recently, as per patient based on MRI scan of the spine findings done on July 02, 2020, orthopedics recommended CT PET scan if it shows no evidence of recurrence of disease in the involved thoracic vertebra then cortisone injection may be helpful. Patient denies worsening of mid back pain which is under control with current pain medication, denies any lower extremity weakness, denies any urine or stool incontinence, denies any night sweats, denies any weight loss, denies any recurrent fever, denies any peripheral lymphadenopathy or abdominal fullness. Medications: Acyclovir 1 Tablet (of 400 mg) Oral b.i.d., AmLODIPine Besylate 1 Tablet (of 5 mg) Oral daily, Kcfqtilttq-DMTB-Eolkgqbb 2 Tablet Oral b.i.d., Excedrin Extra Strength 1 - 2 Tablet (of 250-250-65 mg) Oral daily, Flonase 2 spray(s) (of 50 mcg/act) Suspension Nasal daily, Furosemide 1 Tablet (of 40 mg) Oral daily PRN, HydroCHLOROthiazide 1 Tablet (of 25 mg) Oral daily, HydrOXYzine Pamoate 1 Capsule (of 25 mg) Oral t.i.d., Keppra 1 Tablet (of 750 mg) Oral daily, Losartan Potassium 1 Tablet (of 100 mg) Oral daily, Omeprazole 1 Tablet (of 20 mg) Tablet, enteric coated Oral b.i.d., traZODone HCl 1 Tablet (of 50 mg) Oral at bedtime, Venlafaxine HCl ER 1 Capsule (of 150 mg) Capsule SR 24 HR Oral daily Allergies: IV Contrast dye Review of Systems: Review of Systems is not available for this patient. Vital Signs: Performed on Aug 07, 2020 15:39 Height - 70.00 in Weight - 259 lbs (HIGH) BSA - 2.33 sq.m BMI - 37.16 (HIGH) Temperature - 97.5 F (LOW) Pulse - 93 /min Respiration - 18 /min BP - 159/79 mm(hg) (HIGH) O2 Sat - 94 % (LOW) Pain - 4 Performance Status: 1 - No physically strenuous activity, but ambulatory and able to carry out light or sedentary work (e.g. office work, light house work). (ECOG) Physical Examination: ENMT - No mouth sores, no thrush, no jaundice no cervical lymphadenopathy, Respiratory - Lungs are clear to auscultation, Cardiovascular - Regular rate and rhythm of heart, Abdomen - Soft, bowel sounds present, Extremities - No visible edema. Lab/Imaging: Test performed on Mar 13, 2020 12:39 LDH (Total) 165 U/L Sodium 138 mmol/L Potassium 3.6 mmol/L Chloride 104 mmol/L CO2 25 mmol/L Anion Gap 12.6 BUN 11 mg/dL Creatinine 0.7 mg/dL Cr Clearance (Est) 145.4400 mL/min Glucose 145 mg/dL Osmolality - Calculated 288 mOsm/kg Calcium 9.8 mg/dL Protein, Total 6.4 g/dL Albumin 4.1 g/dL Globulin 2.3 g/dL Bilirubin, Total 0.2 mg/dL ALT (SGPT) 26 U/L AST (SGOT) 21 U/L Alkaline Phosphatase 104 IU/L WBC 7.0 10 3/uL RBC 3.73 10 6/uL HGB 11.3 g/dL HCT 34.2 % MCV 91.7 fL MCH 30.3 pg MCHC 33.0 g/dL RDW 14.1 % Platelet Count 264 10 3/cmm MPV 9.1 fL Neutrophils 4.43 10 3/uL Lymphocytes 1.6 10 3/uL Monocytes 0.7 10 3/uL Eosinophils 0.3 10 3/uL Basophils 0.0 10 3/uL Neutrophil % 62.9 % Lymphocyte % 22.9 % Monocyte % 9.7 % Eosinophil % 3.6 % Basophils % 0.6 % NRBC % 0 % Impression: High-grade B-cell lymphoma, with blastoid morphology, but CT-guided biopsy of left paraspinal mass done on 06/24/2019 which showed 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 No flow cytometry done. FISH studies ruled out double hit type lymphoma or to exclude Burkitt's lymphoma e.g. negative for MYC and BCL 6 rearrangement and also negative for T(14;18) MRI scan of the thoracic spine done on 2019 showed mass centered left T9 costovertebral joint, worrisome for neoplastic process/metastasis mass approximates the inferior margin of exiting left T8 nerve root. In effacement of normal fat signal within left T9-T10 neuralforamen, suspicious for tumor extension. CT scan of thoracic spine done on 06/12/2019 showed large destructive, expansile mass centered in the left paravertebral soft tissue and osseous structures about T8-9 level. Mass measures 3.3 x 2 x 3.5 cm with destruction of the lateral T8 and T9 vertebral bodies, lamina and left transverse processes and eighth rib. Next Soft tissue tumor extends into the foramina of T8-9 and T9-10 with a near contact on the lateral thecal sac. clinical stage ALLIE (liver involvement) Echo done on 07/03/2019 showed ejection fraction 65% and CT PET scan showed involvement of T8 and L4 and single lesion in the liver e.g. clinical stage IV E (liver involvement) Mid back pain Mr Carr has a history of chronic lower extremity edema bilaterally with chronic ulceration involving bilateral ankle anteriorly. Venous Doppler study done on 06/19/2019 showed no evidence of DVT but venous insufficiency. Lymphocytic infiltration of unknown biological significance per skin biopsy from right lateral abdomen done on 11/21/2017 and in the past skin biopsy from dorsum of right hand also showed atypical lymphocytes infiltrates possibilities include T cell lymphoproliferative disorder. No associated B symptoms and peripheral lymphadenopathy Patient has seen medical oncologist Dr. manning in [facility], who did some blood work up twice 6 months apart, as per patient it was negative. History of basal cell carcinoma involving left shoulder status post excision Mr Carr began treatment with R-CHOP on 07/12/2019. He does continue to require Neulasta support. He has tolerated treatment extremely well. He reports that all of his pain is gone. He states he feels he is doing great .Completed 6 cycles of R-CHOP in October 2019 With excellent response followed by [employer] prophylaxis with high-dose methotrexate x2 at [place] completed on January 10, 2020 Plan: Discussed with patient regarding his labs white blood count 9.6 hemoglobin 12.1 hematocrit 37.1 platelets 231,000 CMP within normal limit except sodium 134 Clinically, patient doing reasonably well with mild to moderate midthoracic pain which is under control with current pain medication, patient was referred to orthopedics for evaluation, as per orthopedics evaluation and note CT PET scan is needed to rule out local recurrence, in that case we will consider radiation therapy on the other hand if there is no evidence of local recurrence, cortisone injection may be considered. 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 daily and now this week he will cut down to 30 mg and so on as prescribed by dermatology and also using topical steroids., His midthoracic back pain may be better or stable due to steroids he is taking for left knee area skin rash due to pyoderma gangrenosum At this point we will order a CT PET scan to assess disease status and then patient return to clinic after CT PET scan Signed By: Chuy Arriaza M.D. <<Signature on File>>
== END 2020-08-07 13:46 | disposition home or self-care (01) ==
LOC: ONCMED 13:48
PROVIDERS: PCP Family Medicine; Visit Provider Internal Medicine Hematology & Oncology
DX: C83.59 Lymphoblastic (diffuse) lymphoma, extranodal and solid organ sites (principal); C79.51 Secondary malignant neoplasm of bone; C78.7 Secondary malignant neoplasm of liver and intrahepatic bile duct; I87.2 Venous insufficiency (chronic) (peripheral); L98.6 Other infiltrative disorders of the skin and subcutaneous tissue; M54.6 Pain in thoracic spine; Z85.828 Personal history of other malignant neoplasm of skin; Z79.52 Long term (current) use of systemic steroids; Z79.899 Other long term (current) drug therapy
CPT/HCPCS: 36591; 80053; 85025; 99214

== ENCOUNTER 2020-08-29 07:54 | Outpatient (CLI) | payer OTHER, MEDICARE, SELFPAY ==
[2020-08-29] MEDS: alteplase 1 mg/mL SDV 2 mL 2 MG IV (09:05)
--- NOTE | 2020-09-05 12:13 | ONC FU_ITS ---
Dr. Arriaza follow up note Patient: Chang Carr Unit #: [id number]: 1945 Dicatated By: Chuy Arriaza M.D.Date of Visit:August 29, 2020 Onc Med Follow-up/Prog Note History of Present Illness: Mr. Carr is a 75-year-old gentleman with history of basal cell carcinoma involving left shoulder and left anterior shoulder status post excision. He has a history of lymphocytic infiltrate of the skin involving dorsum of the right hand, the possibility of T-cell lymphoma was not excluded. He was referred to Dr. Manning , medical oncologist in [place]. Mr Carr reports special blood tests were performed twice on 6 monthly basis and no abnormality was found. On 11/21/2017 during his follow-up dermatology exam he was found to have right lateral abdominal skin lesion. A biopsy was obtained and final pathology report showed changes compatible with lymphocytic infiltration off unknown biological significance. Mr Carr on 04/16/2019, that morning he got up with severe mid back pain. The pain was non-radiating; no lower extremity weakness; no urine or stool incontinence, no history of trauma to his back. He states he had seen a chiropractor one time without much help. He was seen by Dr. Osei and MRI scan of spine was ordered but patient could not lay flat on his back due to the severe pain. Tt was rescheduled finally on 05/28/2019. He underwent MRI scan of thoracic spine which showed a mass in paraspinal area involving left T9 costovertebral joint, worrisome for neoplastic process/metastasis. The mass approximated the inferior margin of exiting left T8 nerve root. In effacement of normal fat signal within the left T9-T10 neuroforamen. Suspicious for tumor extension which would affect course of exiting left T9 nerve root. CT scan of thoracic spine was done on 06/12/2019 showed large destructive, expansile mass centered in left paravertebral soft tissue and osseous structures about the T8-9 level. The mass measured 3.3 x 2 x 3.5 cm with a destruction of lateral T8 and T9 vertebral bodies, lamina and left transverse processes and eighth rib. Soft tissue tumor extends into the formen of T8-9 and T9-10 with near contact on the lateral thecal sac. 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 Positive for CD20, CD10 (weak) BCL 6, and p63 and Ki-67 90% of the tumor cell positive. Tumor cell negative for CD3, CD5, BCL 2, cyclin D1 and MYC, EB, ER, CD30, And kappa and lambda light chains. Mum 1, CK 7 CK 20, melanin, HMB-45 and TTF-1 ,NAPSIN A and chromogranin. No flow cytometry has been done. FISH studies are pending to rule out double hit type lymphoma or to exclude Burkitt's lymphoma. Mr Carr has denied any B symptoms, ie: night sweats, weight loss, peripheral lymphadenopathy, recurrent fevers. He denies any Vision changes and denies any hemoptysis or hematemesis. He denied any melena or hematochezia, any abdominal fullness, or any lower extremity paresthesia or numbness. Mr Carr began chemotherapy with R-CHOP on 07/14/2019. He did have chemo induced neutropenia with cycle 1 and required support with Neupogen. Since then he has been supported with Neulasta. He is tolerating the treatment well. His only complaint is that he has had some intermittent insomnia and states that the generally occurs 4 to 7 days post treatment. I suspect that this could be related to his high-dose steroids/prednisone. He states otherwise he is doing great. He states he is had no pain. His pain is been gone for the last couple of weeks. He states he actually feels like he can get up and a little bit more around the house although he is not overdoing it at this time. His appetite is better. He denies any nausea or vomiting. He has had no fever or chills. He denies any new neuropathy discomforts. He again denies any pain. He states his bowels are normal for him. He has chronic headaches and states he continues to have those intermittently but they are not chemo related according to his assessment. We did discuss that we do use Aloxi premed which could cause a headache so if he has problems with headache that is more than his normal he instructed to let us know. Thus far he has not been nauseated and antiemetics are working well. He is very pleasant and a great historian. His ECOG is 1. Patient has history of chronic lower extremity edema and chronic wounds involving lower extremity above both ankles anteriorly, recently done venous Doppler study on 06/19/2019 showed no evidence of DVT but venous insufficiency Patient has raised multiple skin lesions around left knee, as per patient he underwent biopsy and as per patient it was due to arthritis.CT PET scan done on showed T8 vertebral body involvement and L4 destructive lesion and 5 x 2.9 cm single hepatic lesion no lymphadenopathy seen. FISH showed no evidence of double hit or Burkitt's lymphoma e.g. negative for MYC, BCL6 rearrangement. Negative for T(14;18) Echocardiogram done on 06/27/2019 showed ejection fraction 65%, HIV status and hepatitis profile checked on 07/10/2019 came back nonreactive Started on systemic chemotherapy with R CHOP on 07/12/2019 Follow-up CT PET scan done on September 15, 2019, after 4 cycles of R-CHOP showed Multiple destructive osseous lesions at left eighth rib, T8 and anterior left fifth rib, L4 are now FDG negative and similarly hepatic mass in segment 4 is resolved. No new lesions are present e.g. complete response Patient was complaining of mid upper back pain especially with change in position so X-ray thoracic and lumbar spine done on October 17, 2019 showed no visualized fracture but mild degenerative disc disease and decrease in disc space height as per patient he has history of back surgery involving lumbar disc/vertebra, Patient went to [facility] for high-dose methotrexate therapy for [employer] prophylaxis and he received total 2 doses of high-dose methotrexate and last one was given on January 10, 2020. As per patient, he had episode of seizure-like activity on January 26 when he was visiting his daughter near [facility] and he was flown to [facility] in [place] where he underwent MRI scan of the head which shows no abnormality also had a EEG done and as per patient he had another witnessed seizure-like activity during the hospital, patient was started on Keppra with that he has no more episodes. As per patient he has history of seizure-like activity initially noticed in 2012 and then in October 2019, and third time in January 2020, he thinks every time sleep deprivation triggered the seizure-like activity, not being evaluated by neurology. Patient denies any episode of fever or confusion prior to the seizure .Follow-up CT PET scan done on March 08, 2020 showed negative for active lymphoma. Osseous lesions seen on previous scan are unchanged and FDG negative. No recurrent hepatic lymphoma. Reactive marrow and splenic activity seen previously has resolved. Follow-up MRI scan of thoracic and lumbar spine done on July 02, 2020 showed minimal amount of enhancement and increased soft tissue in the left paravertebral soft tissues at T8 and T9. Very early recurrence of neoplasm is not excluded.. The remaining vertebral bodies are negative for acute process. Shallow central disc protrusions at T7-8 and T8 - 9 and MRI lumbar spine showed no abnormality except left laminectomy defect at L5-S1 Was evaluated by orthopedics, and recommended CT PET scan if it shows no evidence of recurrence of disease in the involved thoracic vertebra then cortisone injection may be helpful. , Patient underwent CT PET scan on August 16, 2020 which showed no evidence of recurrence of disease Came for follow-up, denies any specific complaint except persistent mid back pain but no urine or stool incontinence, no pain radiating to the lower extremities or upper extremities, no night sweats, no weight loss, no peripheral lymphadenopathy, no weight loss, patient said he tried [id number] upper back braces but the size did not fit well Medications: Acyclovir 1 Tablet (of 400 mg) Oral b.i.d., AmLODIPine Besylate 1 Tablet (of 5 mg) Oral daily, Koxzmtwwqv-[id number]-Ektgkgyv 2 Tablet Oral b.i.d., Excedrin Extra Strength 1 - 2 Tablet (of 250-250-65 mg) Oral daily, Flonase 2 spray(s) (of 50 mcg/act) Suspension Nasal daily, Furosemide 1 Tablet (of 40 mg) Oral daily PRN, HydroCHLOROthiazide 1 Tablet (of 25 mg) Oral daily, HydrOXYzine Pamoate 1 Capsule (of 25 mg) Oral t.i.d., Keppra 1 Tablet (of 750 mg) Oral daily, Losartan Potassium 1 Tablet (of 100 mg) Oral daily, Omeprazole 1 Tablet (of 20 mg) Tablet, enteric coated Oral b.i.d., traZODone HCl 1 Tablet (of 50 mg) Oral at bedtime, Venlafaxine HCl ER 1 Capsule (of 150 mg) Capsule SR 24 HR Oral daily Allergies: IV Contrast dye Review of Systems: Review of Systems is not available for this patient. Vital Signs: Performed on August 29, 2020 08:17 Height - 70.00 in Weight - 255.4 lbs (LOW) BSA - 2.32 sq.m BMI - 36.65 (HIGH) Temperature - 97.2 F (LOW) Pulse - 84 /min Respiration - 17 /min BP - 140/72 mm(hg) O2 Sat - 96 % Pain - 4 Performance Status: 0 - Fully active, able to carry on all predisease activities without restrictions. (ECOG) Physical Examination: ENMT - No mouth sores, no thrush, no jaundice, no cervical or axillary lymphadenopathy, Respiratory - Lungs are clear to auscultation, Cardiovascular - Regular rate and rhythm of heart, Abdomen - Soft, bowel sounds present, Extremities - No visible edema. Lab/Imaging: Test performed on Mar 13, 2020 12:39 LDH (Total) 165 U/L Sodium 138 mmol/L Potassium 3.6 mmol/L Chloride 104 mmol/L CO2 25 mmol/L Anion Gap 12.6 BUN 11 mg/dL Creatinine 0.7 mg/dL Cr Clearance (Est) 145.4400 mL/min Glucose 145 mg/dL Osmolality - Calculated 288 mOsm/kg Calcium 9.8 mg/dL Protein, Total 6.4 g/dL Albumin 4.1 g/dL Globulin 2.3 g/dL Bilirubin, Total 0.2 mg/dL ALT (SGPT) 26 U/L AST (SGOT) 21 U/L Alkaline Phosphatase 104 IU/L WBC 7.0 10 3/uL RBC 3.73 10 6/uL HGB 11.3 g/dL HCT 34.2 % MCV 91.7 fL MCH 30.3 pg MCHC 33.0 g/dL RDW 14.1 % Platelet Count 264 10 3/cmm MPV 9.1 fL Neutrophils 4.43 10 3/uL Lymphocytes 1.6 10 3/uL Monocytes 0.7 10 3/uL Eosinophils 0.3 10 3/uL Basophils 0.0 10 3/uL Neutrophil % 62.9 % Lymphocyte % 22.9 % Monocyte % 9.7 % Eosinophil % 3.6 % Basophils % 0.6 % NRBC % 0 % Impression: High-grade B-cell lymphoma, with blastoid morphology, but CT-guided biopsy of left paraspinal mass done on 06/24/2019 which showed 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 No flow cytometry done. FISH studies ruled out double hit type lymphoma or to exclude Burkitt's lymphoma e.g. negative for MYC and BCL 6 rearrangement and also negative for T(14;18) MRI scan of the thoracic spine done on 2019 showed mass centered left T9 costovertebral joint, worrisome for neoplastic process/metastasis mass approximates the inferior margin of exiting left T8 nerve root. In effacement of normal fat signal within left T9-T10 neuralforamen, suspicious for tumor extension. CT scan of thoracic spine done on 06/12/2019 showed large destructive, expansile mass centered in the left paravertebral soft tissue and osseous structures about T8-9 level. Mass measures 3.3 x 2 x 3.5 cm with destruction of the lateral T8 and T9 vertebral bodies, lamina and left transverse processes and eighth rib. Next Soft tissue tumor extends into the foramina of T8-9 and T9-10 with a near contact on the lateral thecal sac. clinical stage ALLIE (liver involvement) Echo done on 07/03/2019 showed ejection fraction 65% and CT PET scan showed involvement of T8 and L4 and single lesion in the liver e.g. clinical stage IV E (liver involvement) Mid back pain Mr Carr has a history of chronic lower extremity edema bilaterally with chronic ulceration involving bilateral ankle anteriorly. Venous Doppler study done on 06/19/2019 showed no evidence of DVT but venous insufficiency. Lymphocytic infiltration of unknown biological significance per skin biopsy from right lateral abdomen done on 11/21/2017 and in the past skin biopsy from dorsum of right hand also showed atypical lymphocytes infiltrates possibilities include T cell lymphoproliferative disorder. No associated B symptoms and peripheral lymphadenopathy Patient has seen medical oncologist Dr. manning in [facility], who did some blood work up twice 6 months apart, as per patient it was negative. History of basal cell carcinoma involving left shoulder status post excision Mr Carr began treatment with R-CHOP on 07/12/2019. He does continue to require Neulasta support. He has tolerated treatment extremely well. He reports that all of his pain is gone. He states he feels he is doing great .Completed 6 cycles of R-CHOP in October 2019 With excellent response followed by [employer] prophylaxis with high-dose methotrexate x2 at [facility] completed on January 10, 2020 Follow-up CT PET scan done on August 16, 2020 showed no evidence of recurrence of disease Plan: Discussed with patient regarding his CT PET scan findings which showed no evidence of recurrence of disease but patient has persistent mid upper back pain, was evaluated by orthopedics who recommended CT PET scan to rule out spinal/paraspinal recurrence and his follow-up CT PET scan shows no evidence of recurrence thus cortisone injection to the mid back was recommended, will refer him to pain clinic for evaluation. As per patient his mid back pain was much better when he was taking prednisone 40 mg p.o. daily for pyoderma gangrenosum involving left knee, now on tapering dose of prednisone, 10 mg p.o. daily with that his mid back pain is bothering him so is a good possibility he may respond well to cortisone injection to mid upper back thus we will refer him to pain clinic for evaluation. He will return to clinic in 4 months with CBC CMP and LDH in the meantime he will continue monthly port flush Signed By: Chuy Arriaza M.D. <<Signature on File>>
== END 2020-08-29 07:55 | disposition home or self-care (01) ==
PROVIDERS: PCP Family Medicine; Visit Provider Internal Medicine Hematology & Oncology
DX: C85.18 Unspecified B-cell lymphoma, lymph nodes of multiple sites (principal); M54.6 Pain in thoracic spine; Z86.718 Personal history of other venous thrombosis and embolism; D47.Z9 Other specified neoplasms of uncertain behavior of lymphoid, hematopoietic and related tissue; Z85.89 Personal history of malignant neoplasm of other organs and systems; Z79.899 Other long term (current) drug therapy; Z92.21 Personal history of antineoplastic chemotherapy; Z92.3 Personal history of irradiation
CPT/HCPCS: 36593; 96374; 99215; J2997

== ENCOUNTER 2020-09-05 16:34 | Emergency (ER) | payer OTHER, MEDICARE, SELFPAY ==
[2020-09-05 16:40] VITALS: BP 165/99; PULSE 90; RESP 16; O2SAT 98; BMI 37.5
--- NOTE | 2020-09-05 17:21 | XRR_ITS ---
PROCEDURE INFORMATION: Exam: XR Chest Exam date and time: 09/05/2020 5:28 PM Age: 75 years old Clinical indication: Prior surgery; Surgery type: Port; Patient HX: HX cx in spine, PT - syncope, light headed x 6wks TECHNIQUE: Imaging protocol: XR of the chest. Views: 1 view. Total images: 1 COMPARISON: No relevant prior studies available. FINDINGS: Tubes, catheters and devices: Left Infusaport catheter. Lungs: No visible active interstitial or alveolar airspace disease. Suspected component of COPD/chronic bronchitis. Pleural spaces: Unremarkable. No pleural effusion. No pneumothorax. Heart/Mediastinum: Cardiac structures and configuration with arteriosclerosis. Bones/joints: Unremarkable. XR/XR chest 1V portable [id number] IMPRESSION: Nonacute.
--- NOTE | 2020-09-05 17:22 | CTR_ITS ---
PROCEDURE INFORMATION: Exam: CT Head Without Contrast Exam date and time: 09/05/2020 5:56 PM Age: 75 years old Clinical indication: Patient HX: C/O headache - dizziness and near syncope TECHNIQUE: Imaging protocol: Computed tomography of the head without contrast. Total images: 209 Radiation optimization: All CT scans at this facility use at least one of these dose optimization techniques: automated exposure control; mA and/or kV adjustment per patient size (includes targeted exams where dose is matched to clinical indication); or iterative reconstruction. COMPARISON: No relevant prior studies available. RADIATION DOSE METRICS: Total DLP (mGy-cm): 1039.52 FINDINGS: Brain: No evidence of active or acute intracranial pathologic process, hemorrhage, or trauma. Mild small vessel ischemic disease with senile periventricular leukomalacia. No mass effect. No midline shift. Cerebral and cerebellar atrophy not inconsistent with the patient's chronological age. Cerebral ventricles: No ventriculomegaly. Paranasal sinuses: No visible active paranasal sinus disease. Mastoid air cells: Bilateral chronic mastoiditis. Bones/joints: Unremarkable. No acute fracture. Soft tissues: Unremarkable. CT/CT head wo con* [id number] IMPRESSION: No evidence of active or acute intracranial pathologic process, hemorrhage, or trauma. Radiation Dose CTDIVOL = (mGy): DLP = 1039.52 (mGy-cm)
[2020-09-05 17:50] LABS: Basophils % 0.3 %; Eosinophils % 0.1 %; Hematocrit 39.3 % (42.0-52.0); Hemoglobin 12.9 g/dL (11.7-16.6); Lymphocytes % 10.7 %; Mean Corpuscular HGB Conc 32.8 g/dL (30.0-36.0); Mean Corpuscular Hemoglobin 30.4 pg (28.0-34.0); Mean Corpuscular Volume 92.5 fL (80-94); Monocytes # 0.4 10^3/uL (0.2-0.9); Monocytes % 3.9 %; Neutrophils # 7.86 10^3/uL (1.8-7.7); Neutrophils % 84.7 %; Nucleated Red Blood Cells % 0 %; Platelet Count 222 10^3/cmm (130-400); Red Blood Count 4.25 10^6/uL (4.1-5.3); Red Cell Distribution Width 14.4 % (12.1-15.1); White Blood Count 9.3 10^3/uL (4.0-10.0)
[2020-09-05 17:53] LABS: Add Urine Microscopic? NO; Charge for UA Resulting for Rev
[2020-09-05] MEDS: metoclopramide 5 mg/mL SDV 2 mL 10 MG IVP (18:13)
[2020-09-05 18:14] LABS: Bilirubin Urine Neg (Negative); Blood Urine Neg (Negative); Glucose Urine UA Norm (Normal); Ketones Urine Negative (Negative); Leukocyte Esterase Urine Negative (Negative); Nitrate Urine Negative (Negative); Protein Urine Neg (Negative); Specific Gravity, Urine 1.005 (1.005-1.030); Urine Appearance Clear (CLEAR); Urine Color Yellow (Yellow); Urobilinogen Urine Norm (Negative); pH Urine 7 (5-7)
[2020-09-05 18:20] LABS: Troponin(5th) Baseline 19 ng/L (0-15)
[2020-09-05 18:40] LABS: Alanine Aminotransferase 29 U/L (0-41); Albumin Level 4.4 g/dL (3.5-5.2); Alkaline Phosphatase 94 IU/L (40-130); Anion Gap 14.7 (5-19); Aspartate Amino Transferase 26 U/L (0-40); Blood Urea Nitrogen 28 mg/dL (8-23); Calcium 9.5 mg/dL (8.5-10.5); Carbon Dioxide 26 mmol/L (22-29); Chloride 99 mmol/L (98-107); Globulin 2.3 g/dL (1.3-4.6); Glucose 125 mg/dL (65-115); NT Pro B Type Natriuretic Pept 78 pg/mL (0-125); Osmolality Calculated 289 mOsm/kg (285-295); Potassium 3.7 mmol/L (3.5-5.1); Sodium 136 mmol/L (136-145); Total Bilirubin 0.2 mg/dL (0.15-1.2); Total Protein 6.7 g/dL (6.6-8.7)
[2020-09-05 19:14] VITALS: PULSE 85; RESP 26; O2SAT 95
[2020-09-05 19:47] VITALS: BP 129/83; BP 135/78; BP 151/77; PULSE 81; PULSE 86
--- NOTE | 2020-09-05 20:37 | ED_ITS ---
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 He is currently on Keppra for his seizures. He presents to the emergency department with complaints of dizziness that lasted for a few hours today. He had similar symptoms 2 days ago and wants a few days ago. He is currently on steroids and has had very little sleep in the last 24 hours. He thinks this may be responsible for some of his symptoms. He denies chest pain, shortness of breath, nausea or vomiting. MD complaint: almost passed out Onset (ago): hour(s) Prodromal symptoms: lightheaded Context: at rest Associated symptoms: Reports lightheadedness; Deny abdominal pain, chest pain, fever(s), headache(s), nausea, short of breath, vertigo or weakness History: seizure disorder Treatments prior to arrival: none Review of Systems General: Reports: 10 or more systems reviewed and unremarkable except in HPI and below Const: Denies: fever(s) Card: Reports: lightheadedness; Denies: chest pain GI: Denies: abdominal pain or nausea Neuro: Denies: headache(s) or vertigo PFS ED PFSH: Medical History (Reviewed 09/05/20 @ 22:12 by Latonia Hdz [place], [facility] [place] GERD (gastroesophageal reflux disease) HTN (hypertension), benign Hyperlipidemia Malignant neoplasm of vertebral column Thoracic mass Venous stasis dermatitis of both lower extremities Surgical History (Reviewed 09/05/20 @ 22:12 by Latonia Hdz MD, [facility] [place] History of lumbar surgery (~1997) laminectomy/discectomy L4-L5, L5-S1. Dr. Cormier, [facility]. History of prostatectomy (~2004) History of tonsillectomy (~1967) History of vasectomy (~1984) Port-A-Cath in place (~07/09/19) Family History (Reviewed 09/05/20 @ 22:12 by Latonia Hdz MD, [facility] [place] Father Heart disease Hypertension Arthritis Mother Heart disease Hypertension Social History (Reviewed 09/05/20 @ 22:12 by Latonia Hdz MD, [facility] [place] Smoking and tobacco status: former smoker Alcohol intake: never Household members: none Marital status: service: Yes Current occupational status: retired History of recent travel: No Physical Exam Const: COMMON NORMALS: no acute distress, average body habitus, patient oriented x3, no limitations, healthy appearing, alert and well nourished HENMT: COMMON NORMALS: normocephalic, atraumatic and moist oral mucous membranes HEAD & SCALP: normocephalic and atraumatic Neck/C-Spine: COMMON NORMALS: no meningeal signs and no JVD Resp: COMMON NORMALS: normal respiratory effort, No retractions, No use of accessory muscles, clear to auscultation bilaterally and percussion normal AUSCULTATION: clear to auscultation bilaterally PERCUSSION: percussion normal Cardio: COMMON NORMALS: no JVD, regular rate, regular rhythm, S1 normal heart sound present, S2 normal heart sound present, No gallops present (Cardio), No clicks present (Cardio), No murmurs present (Cardio), No rub (Cardio) and Peripheral pulses 2+ throughout RATE: regular rate RHYTHM: regular rhythm HEART SOUNDS: S1 normal heart sound present and S2 normal heart sound present PERIPHERAL PULSES: Peripheral pulses 2+ throughout GI: COMMON NORMALS: Normal to inspection, nondistended, normoactive bowel sounds present, Soft to palpation, non-tender, No hepatosplenomegaly present, no masses and no bruits PALPATION: Yes Soft to palpation and Yes No hepatosplenomegaly present Extremity: COMMON NORMALS: normal to inspection, full ROM, capillary refill normal, no calf tenderness and no pedal edema Neuro: COMMON NORMALS: patient oriented x3 SENSORIUM/ORIENTATION: Yes alert MENINGEAL SIGNS: Yes no meningeal signs Skin: COMMON NORMALS: no rashes or lesions noted, no wounds, turgor normal, no jaundice, no petechiae and no mottling GENERAL SKIN EXAM: no rashes or lesions noted and turgor normal Course ED course: Discussed his lab and imaging findings with him. Negative for acute findings. Orthostatic vital signs negative. He will be discharged home with no new orders. He voiced understanding and is in agreement with the plan. Reevaluation(s): Time: 20:37 Vital Signs: Vital signs: Vital Signs Pulse Rate 86 09/05/20 21:11 Respiratory Rate 21 H 09/05/20 21:11 Blood Pressure 151/77 09/05/20 19:47 Pulse Oximetry 92 09/05/20 21:11 MDM - Syncope MDM Narrative: Medical decision making narrative: 75-year-old male who presents to the emergency department with dizziness. Evaluation in the emergency department is unremarkable and he is discharged home with no new orders. Head CT negative, chest x-ray negative, cardiac enzymes unremarkable with a flat 2-hour delta. Orthostatics negative. Medical Records: Attestation: I reviewed the patient's medical records. Lab Data: Attestation: I reviewed the patient's lab results. Labs: Lab Results 09/05/20 09/05/20 09/05/20 Range/Units 17:36 17:36 17:36 WBC 9.3 (4.0-10.0) 10^3/ uL RBC 4.25 (4.1-5.3) 10^6/u L Hgb 12.9 (11.7-16.6) g/dL Hct 39.3 L (42.0-52.0) % MCV 92.5 (80-94) fL MCH 30.4 (28.0-34.0) pg MCHC 32.8 (30.0-36.0) g/dL RDW 14.4 (12.1-15.1) % Plt Count 222 (130-400) 10^3/c mm MPV 9.0 (7.4-10.4) fL Neut % (Auto) 84.7 % Lymph % (Auto) 10.7 % [place] % (Auto) 3.9 % Eos % (Auto) 0.1 % Baso % (Auto) 0.3 % Neut # (Auto) 7.86 H (1.8-7.7) 10^3/u L Lymph # (Auto) 1.0 (0.8-4.8) 10^3/u L [place] # (Auto) 0.4 (0.2-0.9) 10^3/u L Eos # (Auto) 0.0 (0.0-0.8) 10^3/u L Baso # (Auto) 0.0 (0.0-0.1) 10^3/u L Nucleated RBC % (a uto) 0 % Nucleated RBCs # 0.0 /100WBC Sodium 136 (136-145) mmol/L Potassium 3.7 (3.5-5.1) mmol/L Chloride 99 (98-107) mmol/L Carbon Dioxide 26 (22-29) mmol/L Anion Gap 14.7 (5-19) BUN 28 H (8-23) mg/dL Creatinine 0.9 (0.7-1.2) mg/dL GFR Calculation Not Reportable Glucose 125 H (65-115) mg/dL Calculated Osmolal ity 289 (285-295) mOsm/k g Calcium 9.5 (8.5-10.5) mg/dL Total Bilirubin 0.2 (0.15-1.2) mg/dL AST 26 (0-40) U/L ALT 29 (0-41) U/L Alkaline Phosphata se 94 (40-130) IU/L Troponin T Baselin e 19 H (0-15) ng/L Troponin T 120 Min sue (0-15) ng/L Delta Troponin T (0-10) ABS# NT-Pro-B Natriuret Pep 78 (0-125) pg/mL Total Protein 6.7 (6.6-8.7) g/dL Albumin 4.4 (3.5-5.2) g/dL Globulin 2.3 (1.3-4.6) g/dL Urine Color (Yellow) Urine Appearance (CLEAR) Urine pH (5-7) Ur Specific Gravit y (1.005-1.030) Urine Protein (Negative) Urine Glucose (UA) (Normal) Urine Ketones (Negative) Urine Blood (Negative) Urine Nitrate (Negative) Urine Bilirubin (Negative) Urine Urobilinogen (Negative) mg/dL Ur Leukocyte Laura ase (Negative) 09/05/20 09/05/20 Range/Units 17:36 18:35 WBC (4.0-10.0) 10^3/ uL RBC (4.1-5.3) 10^6/u L Hgb (11.7-16.6) g/dL Hct (42.0-52.0) % MCV (80-94) fL MCH (28.0-34.0) pg MCHC (30.0-36.0) g/dL RDW (12.1-15.1) % Plt Count (130-400) 10^3/c mm MPV (7.4-10.4) fL Neut % (Auto) % Lymph % (Auto) % [place] % (Auto) % Eos % (Auto) % Baso % (Auto) % Neut # (Auto) (1.8-7.7) 10^3/u L Lymph # (Auto) (0.8-4.8) 10^3/u L [place] # (Auto) (0.2-0.9) 10^3/u L Eos # (Auto) (0.0-0.8) 10^3/u L Baso # (Auto) (0.0-0.1) 10^3/u L Nucleated RBC % (a uto) % Nucleated RBCs # /100WBC Sodium (136-145) mmol/L Potassium (3.5-5.1) mmol/L Chloride (98-107) mmol/L Carbon Dioxide (22-29) mmol/L Anion Gap (5-19) BUN (8-23) mg/dL Creatinine (0.7-1.2) mg/dL GFR Calculation Glucose (65-115) mg/dL Calculated Osmolal ity (285-295) mOsm/k g Calcium (8.5-10.5) mg/dL Total Bilirubin (0.15-1.2) mg/dL AST (0-40) U/L ALT (0-41) U/L Alkaline Phosphata se (40-130) IU/L Troponin T Baselin e (0-15) ng/L Troponin T 120 Min sue 17.10 H (0-15) ng/L Delta Troponin T -1.90 L (0-10) ABS# NT-Pro-B Natriuret Pep (0-125) pg/mL Total Protein (6.6-8.7) g/dL Albumin (3.5-5.2) g/dL Globulin (1.3-4.6) g/dL Urine Color Yellow (Yellow) Urine Appearance Clear (CLEAR) Urine pH 7 (5-7) Ur Specific Gravit y 1.005 (1.005-1.030) Urine Protein Neg (Negative) Urine Glucose (UA) Norm (Normal) Urine Ketones Negative (Negative) Urine Blood Neg (Negative) Urine Nitrate Negative (Negative) Urine Bilirubin Neg (Negative) Urine Urobilinogen Norm (Negative) mg/dL Ur Leukocyte Laura ase Negative (Negative) Imaging Data^: CT Head: Attestation: I personally reviewed and interpreted this imaging study as bhavana jessica: Radiologist's impression: [id number] [place], [place] [address]UG Scan ReportSigned Patient: Pierce Carr #: [id number]: 1945cct#:[id number]/Sex: 75 / MADM Date: 09/05/20Loc: ERRoom/Bed:Attending Dr: Ordering Provider/Ordering MD: Latonia Hdz MD, [facility] [place] Date of Service: 09/05/20 Procedure(s): CT head wo con* [id number] Accession Number(s): [id number] Report Number: [id number] PROCEDURE INFORMATION: Exam: CT Head Without Contrast Exam date and time: 09/05/2020 5:56 PM Age: 75 years old Clinical indication: Patient HX: C/O headache - dizziness and near syncope TECHNIQUE: Imaging protocol: Computed tomography of the head without contrast. Total images: 209 Radiation optimization: All CT scans at this facility use at least one of these dose optimization techniques: automated exposure control; mA and/or kV adjustment per patient size (includes targeted exams where dose is matched to clinical indication); or iterative reconstruction. COMPARISON: No relevant prior studies available. RADIATION DOSE METRICS: Total DLP (mGy-cm): 1039.52 FINDINGS: Brain: No evidence of active or acute intracranial pathologic process, hemorrhage, or trauma. Mild small vessel ischemic disease with senile periventricular leukomalacia. No mass effect. No midline shift. Cerebral and cerebellar atrophy not inconsistent with the patient's chronological age. Cerebral ventricles: No ventriculomegaly. Paranasal sinuses: No visible active paranasal sinus disease. Mastoid air cells: Bilateral chronic mastoiditis. Bones/joints: Unremarkable. No acute fracture. Soft tissues: Unremarkable. CT/CT head wo con* [id number] IMPRESSION: No evidence of active or acute intracranial pathologic process, hemorrhage, or trauma. Radiation Dose CTDIVOL = (mGy): DLP = 1039.52 (mGy-cm) Dictated By:Scar Sanchez By:Scar Sanchez Date/Time:09/05/20/ 182 CXR: Attestation: I personally reviewed and interpreted this imaging study as follows: Radiologist's impression: [address] [address]rm ReportSigned Patient: Pierce Carr #: [id number]: 1945cct#:[id number]/Sex: 75 / MADM Date: 09/05/20Loc: ERRoom/Bed:Attending Dr: Ordering Provider/Ordering MD: Latonia Hdz MD, [facility] [place] of Service: 09/05/20 Procedure(s): XR chest 1V portable [id number] Accession Number(s): [id number] Report Number: [id number] PROCEDURE INFORMATION: Exam: XR Chest Exam date and time: 09/05/2020 5:28 PM Age: 75 years old Clinical indication: Prior surgery; Surgery type: Port; Patient HX: HX cx in spine, PT - syncope, light headed x 6wks TECHNIQUE: Imaging protocol: XR of the chest. Views: 1 view. Total images: 1 COMPARISON: No relevant prior studies available. FINDINGS: Tubes, catheters and devices: Left Infusaport catheter. Lungs: No visible active interstitial or alveolar airspace disease. Suspected component of COPD/chronic bronchitis. Pleural spaces: Unremarkable. No pleural effusion. No pneumothorax. Heart/Mediastinum: Cardiac structures and configuration with arteriosclerosis. Bones/joints: Unremarkable. XR/XR chest 1V portable [id number] IMPRESSION: Nonacute. Dictated By:Scar Sanchez By:Scar Sanchez Date/Time:09/05/20/ 17 EKG Data^: EKG 1: Attestation: I personally reviewed and interpreted this EKG as follows: EKG interpretation date: 09/05/20 EKG interpretation time: 17:37 Prior EKG tracings: not available for review Interpretation: Sinus rhythm. Heart rate 76 bpm. Incomplete right bundle branch block. No ST changes. Discharge Plan Discharge Patient Disposition: Home Clinical Impression: Dizziness Condition: Stable Prescriptions: Continued amlodipine 5 mg tablet 5 mg PO DAILY RF: 0 hydrochlorothiazide 25 mg tablet 25 mg PO DAILY RF: 0 losartan 100 mg tablet 100 mg PO DAILY RF: 0 lovastatin 40 mg tablet 40 mg PO DAILY RF: 0 venlafaxine 150 mg capsule,extended release 24hr 150 mg PO DAILY RF: 0 Excedrin Extra Strength 250-250-65 mg Tablet 1 tab PO Q6H PRN (Reason: HEADACHES) RF: 0 Lasix 40 mg Tablet 40 mg PO DAILY PRN (Reason: Edema) RF: 0 trazodone 50 mg Tablet 50 mg PO BEDTIME RF: 0 Keppra 500 mg Tablet 500 mg PO BID RF: 0 Discharge Orders: Discharge ED (Routine); Ordered 09/05/20 Ordered By: Latonia Hdz Referrals: Hyacinth Tim MD [Primary Care Provider] - 1-3 days Discharge Diet: Usual diet Discharge Activity: Increase activity as tolerated Patient Instructions: Dizziness (ED) Activity Restrictions/Additional Instructions: Return for any new or worsening symptoms. Follow-up with your primary care provider within 3 days. Continue home medications. Coding Level of Care Code ED [employer] for [employer] Fwd Exam Comprehensive
[2020-09-05 21:11] VITALS: PULSE 86; RESP 21; O2SAT 92
--- NOTE | 2020-09-05 23:21 | ECG_ITS ---
[facility] Test Date: 2020-09-05 Pat Name: Chang Carr Department: Room: Gender: Male [place]: : 1945 Requested By: Latonia Hdz I Order Number: [id number] Lauren MD: Erma Nuno M.D. Measurements Intervals [place] Rate: 76 P: 52 UT: 164 QRS: 3 QRSD: 111 T: 35 QT: 384 QTc: 432 Interpretive Statements SINUS RHYTHM LOW QRS VOLTAGE IN PRECORDIAL LEADS [QRS DEFLECTION < 1.0 mV IN CHEST LEADS] INCOMPLETE RIGHT BUNDLE BRANCH BLOCK [90+ ms QRS DURATION, TERMINAL R IN V1/V2, 40+ ms S IN I/aVL/V4/V5/V6] MODERATE VOLTAGE CRITERIA FOR LVH, CONSIDER NORMAL VARIANT [MEETS CRITERIA IN ONE OF: R(aVL), S(V1), R(V5), R(V5/V6)+S(V1)] No previous ECG available for comparison Electronically Signed On 09-06-2020 9:51:51 CDT by Erma Nuno M.D. [id number]
== END 2020-09-05 21:11 | disposition home or self-care (01) ==
PROVIDERS: Emergency Provider Family Medicine; PCP Family Medicine
DX: R42 Dizziness and giddiness (principal); I10 Essential (primary) hypertension; E78.5 Hyperlipidemia, unspecified; Z85.89 Personal history of malignant neoplasm of other organs and systems; Z87.891 Personal history of nicotine dependence
CPT/HCPCS: 70450; 71045; 80053; 81003; 83880; 84484; 85025; 93005; 96374; 99284; J2765

== ENCOUNTER → 2020-09-10 09:40 | Outpatient (BNVA) | payer OTHER, SELFPAY | PROVIDERS: PCP Family Medicine; Visit Provider Anesthesiology Pain Medicine | DX: M54.6 Pain in thoracic spine (principal); M54.9 Dorsalgia, unspecified; Z79.891 Long term (current) use of opiate analgesic; Z87.891 Personal history of nicotine dependence | CPT/HCPCS: 99205 ==

== ENCOUNTER → 2020-09-22 13:00 | Outpatient (BNVA) | payer OTHER, SELFPAY | PROVIDERS: PCP Family Medicine; Visit Provider Anesthesiology Pain Medicine | DX: G89.29 Other chronic pain (principal); M54.6 Pain in thoracic spine; M54.9 Dorsalgia, unspecified; Z91.041 Radiographic dye allergy status | CPT/HCPCS: 62321; J1100; J1200 ==

== ENCOUNTER 2020-10-03 07:46 | Outpatient (CLI) | payer OTHER, MEDICARE, SELFPAY | END 2020-10-03 07:47 | disposition home or self-care (01) | PROVIDERS: PCP Family Medicine; Visit Provider Internal Medicine Hematology & Oncology | DX: Z45.2 Encounter for adjustment and management of vascular access device (principal) | CPT/HCPCS: 96523 ==

== ENCOUNTER 2020-11-03 11:37 | Outpatient (CLI) | payer OTHER, MEDICARE, SELFPAY ==
[2020-11-03] MEDS: alteplase 1 mg/mL SDV 2 mL 2 MG IV (11:57)
== END 2020-11-03 11:38 | disposition home or self-care (01) ==
LOC: ONCMED 11:39
PROVIDERS: PCP Family Medicine; Visit Provider Internal Medicine Hematology & Oncology
DX: C85.10 Unspecified B-cell lymphoma, unspecified site (principal); Z79.899 Other long term (current) drug therapy
CPT/HCPCS: 36593; 96374; J2997

== ENCOUNTER 2020-12-05 09:09 | Outpatient (CLI) | payer OTHER, MEDICARE, SELFPAY | END 2020-12-05 09:10 | disposition home or self-care (01) | PROVIDERS: PCP Family Medicine; Visit Provider Internal Medicine Hematology & Oncology | DX: Z45.2 Encounter for adjustment and management of vascular access device (principal) | CPT/HCPCS: 96523 ==

== ENCOUNTER 2021-01-02 08:04 | Outpatient (CLI) | payer OTHER, SELFPAY ==
[2021-01-02 08:57] LABS: Basophils % 0.6 %; Eosinophils # 0.2 10^3/uL (0.0-0.8); Eosinophils % 2.8 %; Hematocrit 34.1 % (42.0-52.0); Lymphocytes % 27.8 %; Mean Corpuscular HGB Conc 32.3 g/dL (30.0-36.0); Mean Corpuscular Hemoglobin 31.2 pg (28.0-34.0); Mean Corpuscular Volume 96.6 fl (80-94); Mean Platelet Volume 9.3 fL (7.4-10.4); Monocytes # 0.8 10^3/uL (0.2-0.9); Monocytes % 11.4 %; Neutrophils # 4.08 10^3/uL (1.8-7.7); Neutrophils % 57.1 %; Nucleated Red Blood Cells % 0 %; Platelet Count 219 10^3/cmm (130-400); Red Blood Count 3.53 10^6/uL (4.1-5.3); Red Cell Distribution Width 14.6 % (12.1-15.1); White Blood Count 7.1 10^3/uL (4.0-10.0)
[2021-01-02 09:30] LABS: Alanine Aminotransferase 17 U/L (0-41); Albumin Level 3.9 g/dL (3.5-5.2); Alkaline Phosphatase 115 IU/L (40-130); Anion Gap 14.6 (5-19); Aspartate Amino Transferase 16 U/L (0-40); Blood Urea Nitrogen 20 mg/dL (8-23); Calcium 9.1 mg/dL (8.5-10.5); Carbon Dioxide 26 mmol/L (22-29); Chloride 101 mmol/L (98-107); Globulin 2.8 g/dL (1.3-4.6); Glucose 122 mg/dL (65-115); Lactate Dehydrogenase 241 U/L (135-225); Osmolality Calculated 290 mOsm/kg (285-295); Potassium 3.6 mmol/L (3.5-5.1); Sodium 138 mmol/L (136-145); Total Bilirubin 0.4 mg/dL (0.15-1.2); Total Protein 6.7 g/dL (6.6-8.7)
--- NOTE | 2021-02-27 11:37 | ONC FU_ITS ---
Dr. Arriaza follow up note Patient: Chang Carr Unit #: [id number]: 1945 Dicatated By: Chuy Arriaza M.D.Date of Visit:Jan 02, 2021 Onc Med Follow-up/Prog Note History of Present Illness: Mr. Carr is a 75-year-old gentleman with history of basal cell carcinoma involving left shoulder and left anterior shoulder status post excision. He has a history of lymphocytic infiltrate of the skin involving dorsum of the right hand, the possibility of T-cell lymphoma was not excluded. He was referred to Dr. Manning , medical oncologist in [place]. Mr Carr reports special blood tests were performed twice on 6 monthly basis and no abnormality was found. On 11/21/2017 during his follow-up dermatology exam he was found to have right lateral abdominal skin lesion. A biopsy was obtained and final pathology report showed changes compatible with lymphocytic infiltration off unknown biological significance. Mr Carr on 04/16/2019, that morning he got up with severe mid back pain. The pain was non-radiating; no lower extremity weakness; no urine or stool incontinence, no history of trauma to his back. He states he had seen a chiropractor one time without much help. He was seen by Dr. Osei and MRI scan of spine was ordered but patient could not lay flat on his back due to the severe pain. Tt was rescheduled finally on 05/28/2019. He underwent MRI scan of thoracic spine which showed a mass in paraspinal area involving left T9 costovertebral joint, worrisome for neoplastic process/metastasis. The mass approximated the inferior margin of exiting left T8 nerve root. In effacement of normal fat signal within the left T9-T10 neuroforamen. Suspicious for tumor extension which would affect course of exiting left T9 nerve root. CT scan of thoracic spine was done on 06/12/2019 showed large destructive, expansile mass centered in left paravertebral soft tissue and osseous structures about the T8-9 level. The mass measured 3.3 x 2 x 3.5 cm with a destruction of lateral T8 and T9 vertebral bodies, lamina and left transverse processes and eighth rib. Soft tissue tumor extends into the formen of T8-9 and T9-10 with near contact on the lateral thecal sac. 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 Positive for CD20, CD10 (weak) BCL 6, and p63 and Ki-67 90% of the tumor cell positive. Tumor cell negative for CD3, CD5, BCL 2, cyclin D1 and MYC, EB, ER, CD30, And kappa and lambda light chains. Mum 1, CK 7 CK 20, melanin, HMB-45 and TTF-1 ,NAPSIN A and chromogranin. No flow cytometry has been done. FISH studies are pending to rule out double hit type lymphoma or to exclude Burkitt's lymphoma. Mr Carr has denied any B symptoms, ie: night sweats, weight loss, peripheral lymphadenopathy, recurrent fevers. He denies any Vision changes and denies any hemoptysis or hematemesis. He denied any melena or hematochezia, any abdominal fullness, or any lower extremity paresthesia or numbness. Mr Carr began chemotherapy with R-CHOP on 07/14/2019. He did have chemo induced neutropenia with cycle 1 and required support with Neupogen. Since then he has been supported with Neulasta. He is tolerating the treatment well. His only complaint is that he has had some intermittent insomnia and states that the generally occurs 4 to 7 days post treatment. I suspect that this could be related to his high-dose steroids/prednisone. He states otherwise he is doing great. He states he is had no pain. His pain is been gone for the last couple of weeks. He states he actually feels like he can get up and a little bit more around the house although he is not overdoing it at this time. His appetite is better. He denies any nausea or vomiting. He has had no fever or chills. He denies any new neuropathy discomforts. He again denies any pain. He states his bowels are normal for him. He has chronic headaches and states he continues to have those intermittently but they are not chemo related according to his assessment. We did discuss that we do use Aloxi premed which could cause a headache so if he has problems with headache that is more than his normal he instructed to let us know. Thus far he has not been nauseated and antiemetics are working well. He is very pleasant and a great historian. His ECOG is 1. Patient has history of chronic lower extremity edema and chronic wounds involving lower extremity above both ankles anteriorly, recently done venous Doppler study on 06/19/2019 showed no evidence of DVT but venous insufficiency Patient has raised multiple skin lesions around left knee, as per patient he underwent biopsy and as per patient it was due to arthritis.CT PET scan done on showed T8 vertebral body involvement and L4 destructive lesion and 5 x 2.9 cm single hepatic lesion no lymphadenopathy seen. FISH showed no evidence of double hit or Burkitt's lymphoma e.g. negative for MYC, BCL6 rearrangement. Negative for T(14;18) Echocardiogram done on 06/27/2019 showed ejection fraction 65%, HIV status and hepatitis profile checked on 07/10/2019 came back nonreactive Started on systemic chemotherapy with R CHOP on 07/12/2019 Follow-up CT PET scan done on September 15, 2019, after 4 cycles of R-CHOP showed Multiple destructive osseous lesions at left eighth rib, T8 and anterior left fifth rib, L4 are now FDG negative and similarly hepatic mass in segment 4 is resolved. No new lesions are present e.g. complete response Patient was complaining of mid upper back pain especially with change in position so X-ray thoracic and lumbar spine done on October 17, 2019 showed no visualized fracture but mild degenerative disc disease and decrease in disc space height as per patient he has history of back surgery involving lumbar disc/vertebra, Patient went to [place] for high-dose methotrexate therapy for INFORMATION BROKER prophylaxis and he received total 2 doses of high-dose methotrexate and last one was given on January 10, 2020. As per patient, he had episode of seizure-like activity on January 26 when he was visiting his daughter near [facility] and he was flown to [facility] in [place] where he underwent MRI scan of the head which shows no abnormality also had a EEG done and as per patient he had another witnessed seizure-like activity during the hospital, patient was started on Keppra with that he has no more episodes. As per patient he has history of seizure-like activity initially noticed in 2012 and then in October 2019, and third time in January 2020, he thinks every time sleep deprivation triggered the seizure-like activity, not being evaluated by neurology. Patient denies any episode of fever or confusion prior to the seizure .Follow-up CT PET scan done on March 08, 2020 showed negative for active lymphoma. Osseous lesions seen on previous scan are unchanged and FDG negative. No recurrent hepatic lymphoma. Reactive marrow and splenic activity seen previously has resolved. Follow-up MRI scan of thoracic and lumbar spine done on July 02, 2020 showed minimal amount of enhancement and increased soft tissue in the left paravertebral soft tissues at T8 and T9. Very early recurrence of neoplasm is not excluded.. The remaining vertebral bodies are negative for acute process. Shallow central disc protrusions at T7-8 and T8 - 9 and MRI lumbar spine showed no abnormality except left laminectomy defect at L5-S1 Was evaluated by orthopedics, and recommended CT PET scan if it shows no evidence of recurrence of disease in the involved thoracic vertebra then cortisone injection may be helpful. , Patient underwent CT PET scan on August 16, 2020 which showed no evidence of recurrence of disease Came for follow-up, denies any specific complaint, except seizure-like activity in the past and feeling lightheaded dizzy in August 2020, as per patient he has been taking Keppra and following with Dr. Arriaza, neurologist in [place] and scheduled see him in 2 weeks. As far as his chronic back pain is concerned patient said he had allergic reaction to IV contrast dye that is why epidural procedure was not done properly, denies any night sweats denies any fever chills denies any weight loss denies any recurrent fever denies any peripheral lymphadenopathy or abdominal fullness Medications: Acyclovir 1 Tablet (of 400 mg) Oral b.i.d., AmLODIPine Besylate 1 Tablet (of 5 mg) Oral daily, Uigevcbwuc-SKFG-Xhqnalni 2 Tablet Oral b.i.d., Dapsone 1 Tablet (of 25 mg) Oral t.i.d., Excedrin Extra Strength 1 - 2 Tablet (of 250-250-65 mg) Oral daily, Flonase 2 spray(s) (of 50 mcg/act) Suspension Nasal daily, Furosemide 1 Tablet (of 40 mg) Oral daily PRN, HydroCHLOROthiazide 1 Tablet (of 25 mg) Oral daily, HydrOXYzine Pamoate 1 Capsule (of 25 mg) Oral t.i.d., Keppra 1 Tablet (of 750 mg) Oral daily, Losartan Potassium 1 Tablet (of 100 mg) Oral daily, Omeprazole 1 Tablet (of 20 mg) Tablet, enteric coated Oral b.i.d., traZODone HCl 1 Tablet (of 50 mg) Oral at bedtime, Venlafaxine HCl ER 1 Capsule (of 150 mg) Capsule SR 24 HR Oral daily Allergies: IV Contrast dye Review of Systems: Review of Systems is not available for this patient. Vital Signs: Performed on Jan 02, 2021 10:00 Height - 70.00 in Weight - 262.6 lbs (HIGH) BSA - 2.34 sq.m BMI - 37.68 (HIGH) Temperature - 97.4 F (LOW) Pulse - 88 /min Respiration - 18 /min BP - 136/89 mm(hg) O2 Sat - 94 % (LOW) Pain - 0 Performance Status: 0 - Fully active, able to carry on all predisease activities without restrictions. (ECOG) Physical Examination: ENMT - No mouth sores, no thrush, no jaundice no cervical lymphadenopathy, Respiratory - Lungs are clear to auscultation, Cardiovascular - Regular rate and rhythm of heart, Abdomen - Soft, bowel sounds present, Extremities - No visible edema. Lab/Imaging: Most recent lab results are not available for this patient. 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 No flow cytometry done. FISH studies ruled out double hit type lymphoma or to exclude Burkitt's lymphoma e.g. negative for MYC and BCL 6 rearrangement and also negative for T(14;18) MRI scan of the thoracic spine done on 2019 showed mass centered left T9 costovertebral joint, worrisome for neoplastic process/metastasis mass approximates the inferior margin of exiting left T8 nerve root. In effacement of normal fat signal within left T9-T10 neuralforamen, suspicious for tumor extension. CT scan of thoracic spine done on 06/12/2019 showed large destructive, expansile mass centered in the left paravertebral soft tissue and osseous structures about T8-9 level. Mass measures 3.3 x 2 x 3.5 cm with destruction of the lateral T8 and T9 vertebral bodies, lamina and left transverse processes and eighth rib. Next Soft tissue tumor extends into the foramina of T8-9 and T9-10 with a near contact on the lateral thecal sac. clinical stage ALLIE (liver involvement) Echo done on 07/03/2019 showed ejection fraction 65% and CT PET scan showed involvement of T8 and L4 and single lesion in the liver e.g. clinical stage IV E (liver involvement) Mid back pain Mr Carr has a history of chronic lower extremity edema bilaterally with chronic ulceration involving bilateral ankle anteriorly. Venous Doppler study done on 06/19/2019 showed no evidence of DVT but venous insufficiency. Lymphocytic infiltration of unknown biological significance per skin biopsy from right lateral abdomen done on 11/21/2017 and in the past skin biopsy from dorsum of right hand also showed atypical lymphocytes infiltrates possibilities include T cell lymphoproliferative disorder. No associated B symptoms and peripheral lymphadenopathy Patient has seen medical oncologist Dr. manning in [facility], who did some blood work up twice 6 months apart, as per patient it was negative. History of basal cell carcinoma involving left shoulder status post excision Mr Carr began treatment with R-CHOP on 07/12/2019. He does continue to require Neulasta support. He has tolerated treatment extremely well. He reports that all of his pain is gone. He states he feels he is doing great .Completed 6 cycles of R-CHOP in October 2019 With excellent response followed by INFORMATION BROKER prophylaxis with high-dose methotrexate x2 at Last completed on January 10, 2020 Follow-up CT PET scan done on August 16, 2020 showed no evidence of recurrence of disease Plan: Discussed with patient regarding his labs white blood count 7.1 hemoglobin 11 g compared to 12.1 g in July 2020 hematocrit 34.1 platelets 219,000 CMP within normal limits LDH 241 compared to 168 in June 2020 Clinically, patient doing well with no new signs symptoms history of recurrence of disease but his lab work-up shows decrease in his hemoglobin with no obvious sign of hemolysis or bleeding, his LDH also has gone up to 241 compared to 168 previously As far as seizure-like activity is concerned, patient thinks that was due to steroids which gave him insomnia and irritability and eventually seizure-like activity but responded very well to Keppra Patient return to clinic in 1 month with CBC CMP and LDH, if LDH continues to go up and further drop in his hemoglobin, may consider CT scan of chest abdomen pelvis to rule out lymphoma recurrence. Signed By: Chuy Arriaza M.D. <<Signature on File>>
== END 2021-01-02 08:05 | disposition home or self-care (01) ==
LOC: ONCMED 08:06
PROVIDERS: PCP Family Medicine; Visit Provider Internal Medicine Hematology & Oncology
DX: Z08 Encounter for follow-up examination after completed treatment for malignant neoplasm (principal); Z85.72 Personal history of non-Hodgkin lymphomas; R97.8 Other abnormal tumor markers; M54.6 Pain in thoracic spine; Z79.899 Other long term (current) drug therapy; Z92.21 Personal history of antineoplastic chemotherapy; Z92.3 Personal history of irradiation
CPT/HCPCS: 36591; 80053; 83615; 85025; 99214

== ENCOUNTER 2021-02-16 13:26 | Outpatient (CLI) | payer OTHER, SELFPAY ==
[2021-02-16 15:57] LABS: Basophils % 0.4 %; Eosinophils # 0.2 10^3/uL (0.0-0.8); Eosinophils % 2.3 %; Hemoglobin 11.6 g/dL (11.7-16.6); Lymphocytes # 2.8 10^3/uL (0.8-4.8); Lymphocytes % 37.6 %; Mean Corpuscular HGB Conc 32.2 g/dL (30.0-36.0); Mean Corpuscular Hemoglobin 32.7 pg (28.0-34.0); Mean Corpuscular Volume 101.4 fl (80-94); Mean Platelet Volume 9.4 fL (7.4-10.4); Monocytes # 0.6 10^3/uL (0.2-0.9); Monocytes % 7.7 %; Neutrophils # 3.84 10^3/uL (1.8-7.7); Neutrophils % 51.6 %; Nucleated Red Blood Cells % 0 %; Platelet Count 220 10^3/cmm (130-400); Red Blood Count 3.55 10^6/uL (4.1-5.3); Red Cell Distribution Width 13.4 % (12.1-15.1); White Blood Count 7.4 10^3/uL (4.0-10.0)
[2021-02-16 16:27] LABS: Alanine Aminotransferase 19 U/L (0-41); Alkaline Phosphatase 105 IU/L (40-130); Anion Gap 15.7 (5-19); Aspartate Amino Transferase 18 U/L (0-40); Blood Urea Nitrogen 20 mg/dL (8-23); Calcium 9.2 mg/dL (8.5-10.5); Carbon Dioxide 27 mmol/L (22-29); Chloride 103 mmol/L (98-107); Globulin 2.5 g/dL (1.3-4.6); Glucose 126 mg/dL (65-115); Lactate Dehydrogenase 222 U/L (135-225); Osmolality Calculated 298 mOsm/kg (285-295); Potassium 3.7 mmol/L (3.5-5.1); Sodium 142 mmol/L (136-145); Total Bilirubin 0.2 mg/dL (0.15-1.2); Total Protein 6.5 g/dL (6.6-8.7)
== END 2021-02-16 13:27 | disposition home or self-care (01) ==
LOC: ONCMED 13:29
PROVIDERS: PCP Family Medicine; Visit Provider Internal Medicine Hematology & Oncology
DX: C83.59 Lymphoblastic (diffuse) lymphoma, extranodal and solid organ sites (principal); L98.6 Other infiltrative disorders of the skin and subcutaneous tissue
CPT/HCPCS: 36591; 80053; 83615; 85025

== ENCOUNTER 2021-02-18 05:48 | Outpatient (CLI) | payer OTHER, SELFPAY ==
--- NOTE | 2021-02-27 11:41 | ONC FU_ITS ---
Dr. Arriaza follow up note Patient: Chang Carr Unit #: [id number]: 1945 Dicatated By: Chuy Arriaza M.D.Date of Visit:Feb 18, 2021 Onc Med Follow-up/Prog Note History of Present Illness: Mr. Carr is a 75-year-old gentleman with history of basal cell carcinoma involving left shoulder and left anterior shoulder status post excision. He has a history of lymphocytic infiltrate of the skin involving dorsum of the right hand, the possibility of T-cell lymphoma was not excluded. He was referred to Dr. Manning , medical oncologist in [place]. Mr Carr reports special blood tests were performed twice on 6 monthly basis and no abnormality was found. On 11/21/2017 during his follow-up dermatology exam he was found to have right lateral abdominal skin lesion. A biopsy was obtained and final pathology report showed changes compatible with lymphocytic infiltration off unknown biological significance. Mr Carr on 04/16/2019, that morning he got up with severe mid back pain. The pain was non-radiating; no lower extremity weakness; no urine or stool incontinence, no history of trauma to his back. He states he had seen a chiropractor one time without much help. He was seen by Dr. Osei and MRI scan of spine was ordered but patient could not lay flat on his back due to the severe pain. Tt was rescheduled finally on 05/28/2019. He underwent MRI scan of thoracic spine which showed a mass in paraspinal area involving left T9 costovertebral joint, worrisome for neoplastic process/metastasis. The mass approximated the inferior margin of exiting left T8 nerve root. In effacement of normal fat signal within the left T9-T10 neuroforamen. Suspicious for tumor extension which would affect course of exiting left T9 nerve root. CT scan of thoracic spine was done on 06/12/2019 showed large destructive, expansile mass centered in left paravertebral soft tissue and osseous structures about the T8-9 level. The mass measured 3.3 x 2 x 3.5 cm with a destruction of lateral T8 and T9 vertebral bodies, lamina and left transverse processes and eighth rib. Soft tissue tumor extends into the formen of T8-9 and T9-10 with near contact on the lateral thecal sac. 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 Positive for CD20, CD10 (weak) BCL 6, and p63 and Ki-67 90% of the tumor cell positive. Tumor cell negative for CD3, CD5, BCL 2, cyclin D1 and MYC, EB, ER, CD30, And kappa and lambda light chains. Mum 1, CK 7 CK 20, melanin, HMB-45 and TTF-1 ,NAPSIN A and chromogranin. No flow cytometry has been done. FISH studies are pending to rule out double hit type lymphoma or to exclude Burkitt's lymphoma. Mr Carr has denied any B symptoms, ie: night sweats, weight loss, peripheral lymphadenopathy, recurrent fevers. He denies any Vision changes and denies any hemoptysis or hematemesis. He denied any melena or hematochezia, any abdominal fullness, or any lower extremity paresthesia or numbness. Mr Carr began chemotherapy with R-CHOP on 07/14/2019. He did have chemo induced neutropenia with cycle 1 and required support with Neupogen. Since then he has been supported with Neulasta. He is tolerating the treatment well. His only complaint is that he has had some intermittent insomnia and states that the generally occurs 4 to 7 days post treatment. I suspect that this could be related to his high-dose steroids/prednisone. He states otherwise he is doing great. He states he is had no pain. His pain is been gone for the last couple of weeks. He states he actually feels like he can get up and a little bit more around the house although he is not overdoing it at this time. His appetite is better. He denies any nausea or vomiting. He has had no fever or chills. He denies any new neuropathy discomforts. He again denies any pain. He states his bowels are normal for him. He has chronic headaches and states he continues to have those intermittently but they are not chemo related according to his assessment. We did discuss that we do use Aloxi premed which could cause a headache so if he has problems with headache that is more than his normal he instructed to let us know. Thus far he has not been nauseated and antiemetics are working well. He is very pleasant and a great historian. His ECOG is 1. Patient has history of chronic lower extremity edema and chronic wounds involving lower extremity above both ankles anteriorly, recently done venous Doppler study on 06/19/2019 showed no evidence of DVT but venous insufficiency Patient has raised multiple skin lesions around left knee, as per patient he underwent biopsy and as per patient it was due to arthritis.CT PET scan done on showed T8 vertebral body involvement and L4 destructive lesion and 5 x 2.9 cm single hepatic lesion no lymphadenopathy seen. FISH showed no evidence of double hit or Burkitt's lymphoma e.g. negative for MYC, BCL6 rearrangement. Negative for T(14;18) Echocardiogram done on 06/27/2019 showed ejection fraction 65%, HIV status and hepatitis profile checked on 07/10/2019 came back nonreactive Started on systemic chemotherapy with R CHOP on 07/12/2019 Follow-up CT PET scan done on September 15, 2019, after 4 cycles of R-CHOP showed Multiple destructive osseous lesions at left eighth rib, T8 and anterior left fifth rib, L4 are now FDG negative and similarly hepatic mass in segment 4 is resolved. No new lesions are present e.g. complete response Patient was complaining of mid upper back pain especially with change in position so X-ray thoracic and lumbar spine done on October 17, 2019 showed no visualized fracture but mild degenerative disc disease and decrease in disc space height as per patient he has history of back surgery involving lumbar disc/vertebra, Patient went to [place] for high-dose methotrexate therapy for [employer] prophylaxis and he received total 2 doses of high-dose methotrexate and last one was given on January 10, 2020. As per patient, he had episode of seizure-like activity on January 26 when he was visiting his daughter near [facility] and he was flown to [facility] in [place] where he underwent MRI scan of the head which shows no abnormality also had a EEG done and as per patient he had another witnessed seizure-like activity during the hospital, patient was started on Keppra with that he has no more episodes. As per patient he has history of seizure-like activity initially noticed in 2012 and then in October 2019, and third time in January 2020, he thinks every time sleep deprivation triggered the seizure-like activity, not being evaluated by neurology. Patient denies any episode of fever or confusion prior to the seizure .Follow-up CT PET scan done on March 08, 2020 showed negative for active lymphoma. Osseous lesions seen on previous scan are unchanged and FDG negative. No recurrent hepatic lymphoma. Reactive marrow and splenic activity seen previously has resolved. Follow-up MRI scan of thoracic and lumbar spine done on July 02, 2020 showed minimal amount of enhancement and increased soft tissue in the left paravertebral soft tissues at T8 and T9. Very early recurrence of neoplasm is not excluded.. The remaining vertebral bodies are negative for acute process. Shallow central disc protrusions at T7-8 and T8 - 9 and MRI lumbar spine showed no abnormality except left laminectomy defect at L5-S1 Was evaluated by orthopedics, and recommended CT PET scan if it shows no evidence of recurrence of disease in the involved thoracic vertebra then cortisone injection may be helpful. , Patient underwent CT PET scan on August 16, 2020 which showed no evidence of recurrence of disease Came for follow-up, denies any specific complaints, no fever chills, no nausea or vomiting, no diarrhea constipation, no melena or hematochezia, no night sweats, no weight loss, no recurrent fever Medications: Acyclovir 1 Tablet (of 400 mg) Oral b.i.d., AmLODIPine Besylate 1 Tablet (of 5 mg) Oral daily, Onbesoxziq-WHUN-Dhbcrlzk 2 Tablet Oral b.i.d., Dapsone 1 Tablet (of 25 mg) Oral t.i.d., Excedrin Extra Strength 1 - 2 Tablet (of 250-250-65 mg) Oral daily, Flonase 2 spray(s) (of 50 mcg/act) Suspension Nasal daily, Furosemide 1 Tablet (of 40 mg) Oral daily PRN, HydroCHLOROthiazide 1 Tablet (of 25 mg) Oral daily, HydrOXYzine Pamoate 1 Capsule (of 25 mg) Oral t.i.d., Keppra 1 Tablet (of 750 mg) Oral daily, Losartan Potassium 1 Tablet (of 100 mg) Oral daily, Omeprazole 1 Tablet (of 20 mg) Tablet, enteric coated Oral b.i.d., traZODone HCl 1 Tablet (of 50 mg) Oral at bedtime, Venlafaxine HCl ER 1 Capsule (of 150 mg) Capsule SR 24 HR Oral daily Allergies: IV Contrast dye Review of Systems: Review of Systems is not available for this patient. Vital Signs: Performed on Feb 18, 2021 15:56 Height - 70.00 in Weight - 263.8 lbs (HIGH) BSA - 2.35 sq.m BMI - 37.85 (HIGH) Temperature - 97.7 F (LOW) Pulse - 80 /min Respiration - 18 /min BP - 146/76 mm(hg) (HIGH) O2 Sat - 92 % (LOW) Pain - 0 Fatigue - 5 Performance Status: 0 - Fully active, able to carry on all predisease activities without restrictions. (ECOG) Physical Examination: ENMT - No mouth sores, no thrush, no jaundice, No cervical or axillary lymphadenopathy, Respiratory - Lungs are clear to auscultation, Cardiovascular - Regular rate and rhythm of heart, Abdomen - Soft, bowel sounds present, Extremities - No visible edema. Lab/Imaging: Most recent lab results are not available for this patient. 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 No flow cytometry done. FISH studies ruled out double hit type lymphoma or to exclude Burkitt's lymphoma e.g. negative for MYC and BCL 6 rearrangement and also negative for T(14;18) MRI scan of the thoracic spine done on 2019 showed mass centered left T9 costovertebral joint, worrisome for neoplastic process/metastasis mass approximates the inferior margin of exiting left T8 nerve root. In effacement of normal fat signal within left T9-T10 neuralforamen, suspicious for tumor extension. CT scan of thoracic spine done on 06/12/2019 showed large destructive, expansile mass centered in the left paravertebral soft tissue and osseous structures about T8-9 level. Mass measures 3.3 x 2 x 3.5 cm with destruction of the lateral T8 and T9 vertebral bodies, lamina and left transverse processes and eighth rib. Next Soft tissue tumor extends into the foramina of T8-9 and T9-10 with a near contact on the lateral thecal sac. clinical stage ALLIE (liver involvement) Echo done on 07/03/2019 showed ejection fraction 65% and CT PET scan showed involvement of T8 and L4 and single lesion in the liver e.g. clinical stage IV E (liver involvement) Mid back pain Mr Carr has a history of chronic lower extremity edema bilaterally with chronic ulceration involving bilateral ankle anteriorly. Venous Doppler study done on 06/19/2019 showed no evidence of DVT but venous insufficiency. Lymphocytic infiltration of unknown biological significance per skin biopsy from right lateral abdomen done on 11/21/2017 and in the past skin biopsy from dorsum of right hand also showed atypical lymphocytes infiltrates possibilities include T cell lymphoproliferative disorder. No associated B symptoms and peripheral lymphadenopathy Patient has seen medical oncologist Dr. manning in [facility], who did some blood work up twice 6 months apart, as per patient it was negative. History of basal cell carcinoma involving left shoulder status post excision Mr Carr began treatment with R-CHOP on 07/12/2019. He does continue to require Neulasta support. He has tolerated treatment extremely well. He reports that all of his pain is gone. He states he feels he is doing great .Completed 6 cycles of R-CHOP in October 2019 With excellent response followed by [employer] prophylaxis with high-dose methotrexate x2 at [place] completed on January 10, 2020 Follow-up CT PET scan done on August 16, 2020 showed no evidence of recurrence of disease Plan: Discussed with patient regarding his labs white blood count 7.4 hemoglobin 11.6 g compared to 11 g previously hematocrit 36 platelets 220,000 CMP within normal limits LDH 222 which is within normal range compared to 241 previously Clinically, patient doing well with no new signs symptom suggestive of recurrence of disease his follow-up lab work-up shows improvement in his hemoglobin as well as an LDH and patient has no B symptoms and no peripheral lymphadenopathy on exam so we will continue to monitor he will return to clinic in 3 months with CBC CMP and LDH and he will continue monthly port maintenance Signed By: Chuy Arriaza M.D. <<Signature on File>>
== END 2021-02-18 05:49 | disposition home or self-care (01) ==
LOC: ONCMED 05:49
PROVIDERS: PCP Family Medicine; Visit Provider Internal Medicine Hematology & Oncology
DX: Z08 Encounter for follow-up examination after completed treatment for malignant neoplasm (principal); Z85.72 Personal history of non-Hodgkin lymphomas; M54.6 Pain in thoracic spine; Z86.718 Personal history of other venous thrombosis and embolism; Z79.899 Other long term (current) drug therapy; Z85.828 Personal history of other malignant neoplasm of skin; Z92.21 Personal history of antineoplastic chemotherapy; Z92.3 Personal history of irradiation
CPT/HCPCS: 99214

== ENCOUNTER 2021-03-18 13:23 | Outpatient (CLI) | payer OTHER, SELFPAY | END 2021-03-18 13:24 | disposition home or self-care (01) | LOC: ONCMED 13:25 | PROVIDERS: PCP Family Medicine; Visit Provider Internal Medicine Hematology & Oncology | DX: Z45.2 Encounter for adjustment and management of vascular access device (principal) | CPT/HCPCS: 96523 ==

== ENCOUNTER 2021-04-20 13:18 | Outpatient (CLI) | payer OTHER, SELFPAY | END 2021-04-20 13:19 | disposition home or self-care (01) | PROVIDERS: PCP Family Medicine; Visit Provider Internal Medicine Hematology & Oncology | DX: Z45.2 Encounter for adjustment and management of vascular access device (principal) | CPT/HCPCS: 96523 ==

== ENCOUNTER 2021-05-22 10:51 | Outpatient (CLI) | payer OTHER, SELFPAY ==
[2021-05-22 11:41] LABS: Basophils % 0.4 %; Eosinophils # 0.1 10^3/uL (0.0-0.8); Eosinophils % 1.8 %; Hematocrit 37.4 % (42.0-52.0); Lymphocytes % 27.9 %; Mean Corpuscular HGB Conc 32.1 g/dL (30.0-36.0); Mean Corpuscular Hemoglobin 30.7 pg (28.0-34.0); Mean Corpuscular Volume 95.7 fl (80-94); Mean Platelet Volume 9.4 fL (7.4-10.4); Monocytes # 0.6 10^3/uL (0.2-0.9); Monocytes % 8.8 %; Neutrophils # 4.27 10^3/uL (1.8-7.7); Neutrophils % 60.8 %; Nucleated Red Blood Cells % 0 %; Platelet Count 211 10^3/cmm (130-400); Red Blood Count 3.91 10^6/uL (4.1-5.3); Red Cell Distribution Width 13.4 % (12.1-15.1)
[2021-05-22 12:04] LABS: Alanine Aminotransferase 18 U/L (0-41); Albumin Level 4.2 g/dL (3.5-5.2); Alkaline Phosphatase 122 IU/L (40-130); Anion Gap 13.9 (5-19); Aspartate Amino Transferase 20 U/L (0-40); Blood Urea Nitrogen 19 mg/dL (8-23); Calcium 8.8 mg/dL (8.5-10.5); Carbon Dioxide 27 mmol/L (22-29); Chloride 102 mmol/L (98-107); Globulin 2.3 g/dL (1.3-4.6); Glucose 109 mg/dL (65-115); Lactate Dehydrogenase 195 U/L (135-225); Osmolality Calculated 291 mOsm/kg (285-295); Potassium 3.9 mmol/L (3.5-5.1); Sodium 139 mmol/L (136-145); Total Bilirubin 0.3 mg/dL (0.15-1.2); Total Protein 6.5 g/dL (6.6-8.7)
--- NOTE | 2021-05-22 12:41 | ONC FU_ITS ---
Dr. Arriaza follow up note Patient: Chang Carr Unit #: [id number]: [id number] Dicatated By: Chuy Arriaza M.D.Date of Visit:May 22, 2021 Onc Med Follow-up/Prog Note History of Present Illness: Mr. Carr is a 76-year-old gentleman with history of basal cell carcinoma involving left shoulder and left anterior shoulder status post excision. He has a history of lymphocytic infiltrate of the skin involving dorsum of the right hand, the possibility of T-cell lymphoma was not excluded. He was referred to Dr. Manning , medical oncologist in [place]. Mr Carr reports special blood tests were performed twice on 6 monthly basis and no abnormality was found. On 11/21/2017 during his follow-up dermatology exam he was found to have right lateral abdominal skin lesion. A biopsy was obtained and final pathology report showed changes compatible with lymphocytic infiltration off unknown biological significance. Mr Carr on 04/16/2019, that morning he got up with severe mid back pain. The pain was non-radiating; no lower extremity weakness; no urine or stool incontinence, no history of trauma to his back. He states he had seen a chiropractor one time without much help. He was seen by Dr. Osei and MRI scan of spine was ordered but patient could not lay flat on his back due to the severe pain. Tt was rescheduled finally on 05/28/2019. He underwent MRI scan of thoracic spine which showed a mass in paraspinal area involving left T9 costovertebral joint, worrisome for neoplastic process/metastasis. The mass approximated the inferior margin of exiting left T8 nerve root. In effacement of normal fat signal within the left T9-T10 neuroforamen. Suspicious for tumor extension which would affect course of exiting left T9 nerve root. CT scan of thoracic spine was done on 06/12/2019 showed large destructive, expansile mass centered in left paravertebral soft tissue and osseous structures about the T8-9 level. The mass measured 3.3 x 2 x 3.5 cm with a destruction of lateral T8 and T9 vertebral bodies, lamina and left transverse processes and eighth rib. Soft tissue tumor extends into the formen of T8-9 and T9-10 with near contact on the lateral thecal sac. 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 Positive for CD20, CD10 (weak) BCL 6, and p63 and Ki-67 90% of the tumor cell positive. Tumor cell negative for CD3, CD5, BCL 2, cyclin D1 and MYC, EB, ER, CD30, And kappa and lambda light chains. Mum 1, CK 7 CK 20, melanin, HMB-45 and TTF-1 ,NAPSIN A and chromogranin. No flow cytometry has been done. FISH studies are pending to rule out double hit type lymphoma or to exclude Burkitt's lymphoma. Mr Carr has denied any B symptoms, ie: night sweats, weight loss, peripheral lymphadenopathy, recurrent fevers. He denies any Vision changes and denies any hemoptysis or hematemesis. He denied any melena or hematochezia, any abdominal fullness, or any lower extremity paresthesia or numbness. Mr Carr began chemotherapy with R-CHOP on 07/14/2019. He did have chemo induced neutropenia with cycle 1 and required support with Neupogen. Since then he has been supported with Neulasta. He is tolerating the treatment well. His only complaint is that he has had some intermittent insomnia and states that the generally occurs 4 to 7 days post treatment. I suspect that this could be related to his high-dose steroids/prednisone. He states otherwise he is doing great. He states he is had no pain. His pain is been gone for the last couple of weeks. He states he actually feels like he can get up and a little bit more around the house although he is not overdoing it at this time. His appetite is better. He denies any nausea or vomiting. He has had no fever or chills. He denies any new neuropathy discomforts. He again denies any pain. He states his bowels are normal for him. He has chronic headaches and states he continues to have those intermittently but they are not chemo related according to his assessment. We did discuss that we do use Aloxi premed which could cause a headache so if he has problems with headache that is more than his normal he instructed to let us know. Thus far he has not been nauseated and antiemetics are working well. He is very pleasant and a great historian. His ECOG is 1. Patient has history of chronic lower extremity edema and chronic wounds involving lower extremity above both ankles anteriorly, recently done venous Doppler study on 06/19/2019 showed no evidence of DVT but venous insufficiency Patient has raised multiple skin lesions around left knee, as per patient he underwent biopsy and as per patient it was due to arthritis.CT PET scan done on showed T8 vertebral body involvement and L4 destructive lesion and 5 x 2.9 cm single hepatic lesion no lymphadenopathy seen. FISH showed no evidence of double hit or Burkitt's lymphoma e.g. negative for MYC, BCL6 rearrangement. Negative for T(14;18) Echocardiogram done on 06/27/2019 showed ejection fraction 65%, HIV status and hepatitis profile checked on 07/10/2019 came back nonreactive Started on systemic chemotherapy with R CHOP on 07/12/2019 Follow-up CT PET scan done on September 15, 2019, after 4 cycles of R-CHOP showed Multiple destructive osseous lesions at left eighth rib, T8 and anterior left fifth rib, L4 are now FDG negative and similarly hepatic mass in segment 4 is resolved. No new lesions are present e.g. complete response Patient was complaining of mid upper back pain especially with change in position so X-ray thoracic and lumbar spine done on October 17, 2019 showed no visualized fracture but mild degenerative disc disease and decrease in disc space height as per patient he has history of back surgery involving lumbar disc/vertebra, Patient went to [place] for high-dose methotrexate therapy for [facility] prophylaxis and he received total 2 doses of high-dose methotrexate and last one was given on January 10, 2020. As per patient, he had episode of seizure-like activity on January 26 when he was visiting his daughter near [facility] and he was flown to [facility] in [place] where he underwent MRI scan of the head which shows no abnormality also had a EEG done and as per patient he had another witnessed seizure-like activity during the hospital, patient was started on Keppra with that he has no more episodes. As per patient he has history of seizure-like activity initially noticed in 2012 and then in October 2019, and third time in January 2020, he thinks every time sleep deprivation triggered the seizure-like activity, not being evaluated by neurology. Patient denies any episode of fever or confusion prior to the seizure .Follow-up CT PET scan done on March 08, 2020 showed negative for active lymphoma. Osseous lesions seen on previous scan are unchanged and FDG negative. No recurrent hepatic lymphoma. Reactive marrow and splenic activity seen previously has resolved. Follow-up MRI scan of thoracic and lumbar spine done on July 02, 2020 showed minimal amount of enhancement and increased soft tissue in the left paravertebral soft tissues at T8 and T9. Very early recurrence of neoplasm is not excluded.. The remaining vertebral bodies are negative for acute process. Shallow central disc protrusions at T7-8 and T8 - 9 and MRI lumbar spine showed no abnormality except left laminectomy defect at L5-S1 Was evaluated by orthopedics, and recommended CT PET scan if it shows no evidence of recurrence of disease in the involved thoracic vertebra then cortisone injection may be helpful. , Patient underwent CT PET scan on August 16, 2020 which showed no evidence of recurrence of disease Came for follow-up, denies any specific complaint except persistent mid upper back pain, in the past patient was given steroid injection as per patient did not help him much but pain medication is helping him moreover laying down helps him too. No fever chills, no nausea or vomiting, no diarrhea or constipation, no night sweats, no peripheral lymphadenopathy, no abdominal fullness, no lower extremity weakness, no urine or stool incontinence. No weight loss, appetite is good Medications: Acyclovir 1 Tablet (of 400 mg) Oral b.i.d., AmLODIPine Besylate 1 Tablet (of 5 mg) Oral daily, Nafgmalzck-GWBL-Vzonkxqr 2 Tablet Oral b.i.d., Ciprofloxacin HCl 1 Tablet (of 100 mg) Oral b.i.d. for 7 days, Dapsone 1 Tablet (of 25 mg) Oral t.i.d., Excedrin Extra Strength 1 - 2 Tablet (of 250-250-65 mg) Oral daily, Flonase 2 spray(s) (of 50 mcg/act) Suspension Nasal daily, Furosemide 1 Tablet (of 40 mg) Oral daily PRN, HydroCHLOROthiazide 1 Tablet (of 25 mg) Oral daily, HydrOXYzine Pamoate 1 Capsule (of 25 mg) Oral t.i.d., Keppra 1 Tablet (of 750 mg) Oral daily, Losartan Potassium 1 Tablet (of 100 mg) Oral daily, Omeprazole 1 Tablet (of 20 mg) Tablet, enteric coated Oral b.i.d., traZODone HCl 1 Tablet (of 50 mg) Oral at bedtime, Venlafaxine HCl ER 1 Capsule (of 150 mg) Capsule SR 24 HR Oral daily Allergies: IV Contrast dye and predniSONE. Review of Systems: Review of Systems is not available for this patient. Vital Signs: Performed on May 22, 2021 11:33 Height - 70.00 in Weight - 257.4 lbs (LOW) BSA - 2.32 sq.m BMI - 36.93 (HIGH) Temperature - 97.9 F (LOW) Pulse - 81 /min Respiration - 17 /min BP - 141/86 mm(hg) (HIGH) O2 Sat - 96 % Pain - 2 Fatigue - 0 Performance Status: 0 - Fully active, able to carry on all predisease activities without restrictions. (ECOG) Physical Examination: ENMT - No mouth sores, no thrush, no jaundice, no cervical lymphadenopathy, Respiratory - Lungs are clear to auscultation, Cardiovascular - Regular rate and rhythm of heart, Abdomen - Soft, bowel sounds present, Extremities - No visible edema. Lab/Imaging: Most recent lab results are not available for this patient. 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 No flow cytometry done. FISH studies ruled out double hit type lymphoma or to exclude Burkitt's lymphoma e.g. negative for MYC and BCL 6 rearrangement and also negative for T(14;18) MRI scan of the thoracic spine done on 2019 showed mass centered left T9 costovertebral joint, worrisome for neoplastic process/metastasis mass approximates the inferior margin of exiting left T8 nerve root. In effacement of normal fat signal within left T9-T10 neuralforamen, suspicious for tumor extension. CT scan of thoracic spine done on 06/12/2019 showed large destructive, expansile mass centered in the left paravertebral soft tissue and osseous structures about T8-9 level. Mass measures 3.3 x 2 x 3.5 cm with destruction of the lateral T8 and T9 vertebral bodies, lamina and left transverse processes and eighth rib. Next Soft tissue tumor extends into the foramina of T8-9 and T9-10 with a near contact on the lateral thecal sac. clinical stage ALLIE (liver involvement) Echo done on 07/03/2019 showed ejection fraction 65% and CT PET scan showed involvement of T8 and L4 and single lesion in the liver e.g. clinical stage IV E (liver involvement) Mid back pain Mr Carr has a history of chronic lower extremity edema bilaterally with chronic ulceration involving bilateral ankle anteriorly. Venous Doppler study done on 06/19/2019 showed no evidence of DVT but venous insufficiency. Lymphocytic infiltration of unknown biological significance per skin biopsy from right lateral abdomen done on 11/21/2017 and in the past skin biopsy from dorsum of right hand also showed atypical lymphocytes infiltrates possibilities include T cell lymphoproliferative disorder. No associated B symptoms and peripheral lymphadenopathy Patient has seen medical oncologist Dr. manning in [facility], who did some blood work up twice 6 months apart, as per patient it was negative. History of basal cell carcinoma involving left shoulder status post excision Mr Carr began treatment with R-CHOP on 07/12/2019. He does continue to require Neulasta support. He has tolerated treatment extremely well. He reports that all of his pain is gone. He states he feels he is doing great .Completed 6 cycles of R-CHOP in October 2019 With excellent response followed by [facility] prophylaxis with high-dose methotrexate x2 at Last completed on January 10, 2020 Follow-up CT PET scan done on August 16, 2020 showed no evidence of recurrence of disease Plan: Discussed with patient regarding his labs white blood count 7 hemoglobin 12 hematocrit 37.4 platelets 211,000 CMP normal limit including LDH which is 195 Clinically, patient doing well, with no new signs symptoms history of disease progression, no B symptoms but patient has persistent mid back pain due to T9 involvement at the time of presentation, his lab work-up is within normal range including LDH, no evidence of peripheral lymphadenopathy. No B symptoms, will continue to monitor and he will return to clinic in 3 months with CBC CMP, LDH and CT scan of chest abdomen. Patient was advised in case there is a worsening of mid back pain, he need to call us otherwise return to clinic in 3 months as mentioned above. Signed By: Chuy Arriaza M.D. <<Signature on File>>
== END 2021-05-22 10:52 | disposition home or self-care (01) ==
LOC: ONCMED 10:54
PROVIDERS: PCP Family Medicine; Visit Provider Internal Medicine Hematology & Oncology
DX: C83.38 Diffuse large B-cell lymphoma, lymph nodes of multiple sites (principal); M54.6 Pain in thoracic spine; R60.0 Localized edema; I87.2 Venous insufficiency (chronic) (peripheral); Z85.89 Personal history of malignant neoplasm of other organs and systems; Z79.899 Other long term (current) drug therapy
CPT/HCPCS: 36591; 80053; 83615; 85025; 99214

== ENCOUNTER → 2021-06-22 11:34 | Outpatient (BNVA) | payer OTHER, SELFPAY | PROVIDERS: PCP Family Medicine; Visit Provider Specialist | DX: G43.711 Chronic migraine without aura, intractable, with status migrainosus (principal) | CPT/HCPCS: 99203; 99204 ==

== ENCOUNTER 2021-06-22 14:10 | Outpatient (CLI) | payer OTHER, SELFPAY | END 2021-06-22 14:11 | disposition home or self-care (01) | PROVIDERS: PCP Family Medicine; Visit Provider Internal Medicine Hematology & Oncology | DX: Z45.2 Encounter for adjustment and management of vascular access device (principal) | CPT/HCPCS: 96523 ==

== ENCOUNTER 2021-07-20 13:36 | Outpatient (CLI) | payer OTHER, SELFPAY | END 2021-07-20 13:37 | disposition home or self-care (01) | LOC: ONCMED 13:38 | PROVIDERS: PCP Family Medicine; Visit Provider Internal Medicine Hematology & Oncology | DX: Z45.2 Encounter for adjustment and management of vascular access device (principal) | CPT/HCPCS: 96523 ==

== ENCOUNTER → 2021-08-27 10:32 | Outpatient (BNVA) | payer OTHER, SELFPAY | PROVIDERS: PCP Family Medicine; Visit Provider Specialist | DX: G43.711 Chronic migraine without aura, intractable, with status migrainosus (principal) | CPT/HCPCS: 64615; J0585 ==

== ENCOUNTER 2021-09-21 10:30 | Oncology outpatient (recurring) (ONCR) | payer OTHER, SELFPAY ==
--- NOTE | 2021-09-18 08:01 | CT_ITS ---
WS: [id number] CT CHEST, ABDOMEN, AND PELVIS TECHNIQUE: Noncontrast CT of the chest, abdomen, and pelvis with coronal and sagittal reformatted justin ges. CLINICAL INFORMATION: LYMPHOBLASTIC LYMPHOMA COMPARISON: PET/CT 08/16/2020 and 03/08/2020 and MRI thoracic July 02, 2020 . DLP: All CT scans at [facility] use at least one of these dose optimization techniques: automated e xposure control; mA and/or kV adjustment per patient size (includes targeted exams where dose is matc hed to clinical indication); or iterative reconstruction. CT CHEST ABDOMEN PELVIS: Both lungs are well aerated. No acute pulmonary infiltrates. No suspicious pulmonary parenchymal opac ities. Mild chronic emphysematous changes. Slight bibasilar atelectasis. Mild aortic calcification. N ormal caliber thoracic aorta. Mild coronary calcification. No mediastinal or hilar lymphadenopathy. N o axillary lymphadenopathy. Normal thoracic spine. Normal noncontrast liver. Normal GE junction. Normal noncontrast pancreas. Noncontrast spleen is norm al. Adrenal glands are normal. No hydronephrosis in either kidney. No upper abdominal lymphadenopathy . Normal gallbladder. No periaortic lymphadenopathy. No pelvic or inguinal lymphadenopathy. Sigmoid diverticulosis. No evid ence of acute diverticulitis. No evidence of small or large bowel obstruction. Small fat-containing u mbilical hernia. Disc space narrowing worse L5-S1 CT/[place] [id number] IMPRESSION: 1. No lymphadenopathy in the chest abdomen or pelvis. 2. No evidence of recurrent disease. 3. Normal thoracic and lumbar spine. 4. No other significant findings.
[2021-09-21 11:08] LABS: Basophils % 0.5 %; Eosinophils # 0.2 10^3/uL (0.0-0.8); Eosinophils % 1.9 %; Hematocrit 36.1 % (42.0-52.0); Hemoglobin 11.9 g/dL (11.7-16.6); Lymphocytes # 2.6 10^3/uL (0.8-4.8); Lymphocytes % 33.2 %; Mean Corpuscular Hemoglobin 29.8 pg (28.0-34.0); Mean Corpuscular Volume 90.5 fl (80-94); Mean Platelet Volume 9.6 fL (7.4-10.4); Monocytes # 0.6 10^3/uL (0.2-0.9); Monocytes % 7.6 %; Neutrophils # 4.42 10^3/uL (1.8-7.7); Neutrophils % 56.5 %; Nucleated Red Blood Cells % 0 %; Platelet Count 191 10^3/cmm (130-400); Red Blood Count 3.99 10^6/uL (4.1-5.3); Red Cell Distribution Width 13.5 % (12.1-15.1); White Blood Count 7.8 10^3/uL (4.0-10.0)
[2021-09-21 11:19] LABS: Alanine Aminotransferase 18 U/L (0-41); Alkaline Phosphatase 105 IU/L (40-130); Anion Gap 11.8 (5-19); Aspartate Amino Transferase 18 U/L (0-40); Blood Urea Nitrogen 22 mg/dL (8-23); Carbon Dioxide 27 mmol/L (22-29); Chloride 102 mmol/L (98-107); Globulin 2.6 g/dL (1.3-4.6); Glucose 170 mg/dL (65-115); Lactate Dehydrogenase 208 U/L (135-225); Osmolality Calculated 291 mOsm/kg (285-295); Potassium 3.8 mmol/L (3.5-5.1); Sodium 137 mmol/L (136-145); Total Bilirubin 0.2 mg/dL (0.15-1.2); Total Protein 6.6 g/dL (6.6-8.7)
== END 2021-10-08 23:59 | disposition home or self-care (01) ==
PROVIDERS: Nurse Practitioner Family; PCP Family Medicine; Visit Provider Internal Medicine Hematology & Oncology
DX: Z08 Encounter for follow-up examination after completed treatment for malignant neoplasm (principal); Z85.72 Personal history of non-Hodgkin lymphomas; Z85.830 Personal history of malignant neoplasm of bone; Z92.21 Personal history of antineoplastic chemotherapy; Z92.3 Personal history of irradiation; Z87.891 Personal history of nicotine dependence
CPT/HCPCS: 36591; 71250; 74176; 80053; 83615; 85025; G0463

== ENCOUNTER 2021-10-22 14:11 | Oncology outpatient (recurring) (ONCR) | payer OTHER, SELFPAY ==
[2021-10-22 14:37] VITALS: BP 125/65; PULSE 79; RESP 18; TEMP 36.5; O2SAT 96
== END 2021-11-08 23:59 | disposition home or self-care (01) ==
PROVIDERS: PCP Family Medicine; Visit Provider Internal Medicine Hematology & Oncology
DX: Z45.2 Encounter for adjustment and management of vascular access device (principal); C85.90 Non-Hodgkin lymphoma, unspecified, unspecified site
CPT/HCPCS: 96523

== ENCOUNTER → 2021-11-19 10:53 | Outpatient (BNVA) | payer OTHER, SELFPAY | PROVIDERS: PCP Family Medicine; Visit Provider Specialist | DX: G43.711 Chronic migraine without aura, intractable, with status migrainosus (principal); M54.2 Cervicalgia | CPT/HCPCS: 64615; 99212; J0585 ==

== ENCOUNTER 2021-11-24 14:20 | Oncology outpatient (recurring) (ONCR) | payer OTHER, SELFPAY | END 2021-12-09 23:59 | disposition home or self-care (01) | LOC: ONCMED 14:21 | PROVIDERS: PCP Family Medicine; Visit Provider Internal Medicine Hematology & Oncology | DX: C85.90 Non-Hodgkin lymphoma, unspecified, unspecified site (principal); Z45.2 Encounter for adjustment and management of vascular access device | CPT/HCPCS: 96523 ==

== ENCOUNTER 2021-12-23 12:24 | Oncology outpatient (recurring) (ONCR) | payer OTHER, SELFPAY ==
[2021-12-23 12:40] VITALS: BMI 37.5
[2021-12-23 12:52] LABS: Basophils % 0.4 %; Eosinophils # 0.1 10^3/uL (0.0-0.8); Eosinophils % 1.8 %; Hematocrit 37.7 % (42.0-52.0); Hemoglobin 12.2 g/dL (11.7-16.6); Lymphocytes # 2.5 10^3/uL (0.8-4.8); Mean Corpuscular HGB Conc 32.4 g/dL (30.0-36.0); Mean Corpuscular Hemoglobin 29.5 pg (28.0-34.0); Mean Corpuscular Volume 91.3 fl (80-94); Mean Platelet Volume 9.2 fL (7.4-10.4); Monocytes # 0.8 10^3/uL (0.2-0.9); Monocytes % 9.6 %; Neutrophils # 4.52 10^3/uL (1.8-7.7); Neutrophils % 56.9 %; Nucleated Red Blood Cells % 0 %; Platelet Count 198 10^3/cmm (130-400); Red Blood Count 4.13 10^6/uL (4.1-5.3); Red Cell Distribution Width 13.3 % (12.1-15.1); White Blood Count 7.9 10^3/uL (4.0-10.0)
[2021-12-23 13:13] LABS: Alanine Aminotransferase 23 U/L (0-41); Albumin Level 3.9 g/dL (3.5-5.2); Alkaline Phosphatase 131 U/L (40-130); Anion Gap 14.8 (5-19); Aspartate Amino Transferase 27 U/L (0-40); Blood Urea Nitrogen 22 mg/dL (8-23); Calcium 9.4 mg/dL (8.5-10.5); Carbon Dioxide 27 mmol/L (22-29); Chloride 99 mmol/L (98-107); Creatinine Clr Calc Pharmacy 92.9353; Globulin 2.8 g/dL (1.3-4.6); Glucose 129 mg/dL (65-115); Osmolality Calculated 289 mOsm/kg (285-295); Potassium 3.8 mmol/L (3.5-5.1); Sodium 137 mmol/L (136-145); Total Bilirubin 0.3 mg/dL (0.15-1.2); Total Protein 6.7 g/dL (6.6-8.7)
[2021-12-23 13:49] LABS: Lactate Dehydrogenase 220 U/L (135-225)
== END 2022-01-08 23:59 | disposition home or self-care (01) ==
PROVIDERS: Nurse Practitioner; PCP Family Medicine; Visit Provider Internal Medicine Hematology & Oncology
DX: Z08 Encounter for follow-up examination after completed treatment for malignant neoplasm; Z85.72 Personal history of non-Hodgkin lymphomas; Z85.828 Personal history of other malignant neoplasm of skin; Z92.21 Personal history of antineoplastic chemotherapy; Z92.3 Personal history of irradiation; Z87.891 Personal history of nicotine dependence
CPT/HCPCS: 36591; 80053; 83615; 85025; 99213; 99214

== ENCOUNTER 2022-03-03 14:01 | Oncology outpatient (recurring) (ONCR) | payer OTHER, SELFPAY | END 2022-03-10 23:59 | disposition home or self-care (01) | LOC: ONCMED 14:02 | PROVIDERS: PCP Family Medicine; Visit Provider Internal Medicine Hematology & Oncology | DX: Z08 Encounter for follow-up examination after completed treatment for malignant neoplasm (principal); Z85.72 Personal history of non-Hodgkin lymphomas; Z85.828 Personal history of other malignant neoplasm of skin; Z92.21 Personal history of antineoplastic chemotherapy; Z92.3 Personal history of irradiation; Z87.891 Personal history of nicotine dependence | CPT/HCPCS: 96523 ==

== ENCOUNTER 2022-03-09 07:22 | Outpatient (CLI) | payer OTHER, SELFPAY ==
--- NOTE | 2022-03-09 07:30 | CT_ITS ---
WS: [id number] CT CHEST, ABDOMEN, AND PELVIS TECHNIQUE: Noncontrast CT of the chest, abdomen, and pelvis with coronal and sagittal reformatted justin ges. CLINICAL INFORMATION: follow up COMPARISON: CT September 18, 2021 PET/CT August 16, 2020 DLP: 1457.[address] scans at [facility] use at least one of these dose optimization techniques: automated e xposure control; mA and/or kV adjustment per patient size (includes targeted exams where dose is matc hed to clinical indication); or iterative reconstruction. CT CHEST: No acute pulmonary infiltrates. No suspicious pulmonary parenchymal opacities. Mild chronic emphysema tous changes. Slight bibasilar atelectasis Mild aortic calcification. Coronary calcification. Normal caliber thoracic aorta. No mediastinal or h ilar lymphadenopathy. No axillary lymphadenopathy. Normal thoracic spine. CT ABDOMEN AND PELVIS: LEFT central venous catheter tip in the distal SVC. Normal noncontrast liver. Normal GE junction. Nor mal noncontrast pancreas. Noncontrast spleen is normal. Adrenal glands are normal. No hydronephrosis in either kidney. No upper abdominal lymphadenopathy. Small amount of haziness in the central mesente ry consistent with anny mesentery . This is unchanged from the prior studies. This was FDG negative on the prior PET CTs dating back to June 30, 2019. Normal gallbladder. No periaortic lymphadenopathy. No pelvic or inguinal lymphadenopathy. Sigmoid div erticulosis. No evidence of acute diverticulitis. No evidence of small or large bowel obstruction. Sm all fat- containing umbilical hernia. Disc space narrowing worse L5-S1 CT/[place] [id number] IMPRESSION: 1. No lymphadenopathy in the chest abdomen or pelvis. 2. No evidence of recurrent disease. 3. Small amount of haziness in the central mesentery consistent with anny m esentery . This is unchanged from the prior studies and was FDG negative on the prior PET/CT's 4. Normal thoracic and lumbar spine. 5. No other significant findings.
== END 2022-03-09 07:23 | disposition home or self-care (01) ==
PROVIDERS: PCP Family Medicine; Visit Provider Internal Medicine Hematology & Oncology
DX: C41.2 Malignant neoplasm of vertebral column (principal)
CPT/HCPCS: 71250; 74176

== ENCOUNTER 2022-05-06 14:08 | Oncology outpatient (recurring) (ONCR) | payer OTHER, SELFPAY ==
[2022-05-06 14:27] LABS: Basophils % 0.5 %; Eosinophils # 0.1 10^3/uL (0.0-0.8); Eosinophils % 1.3 %; Hemoglobin 12.3 g/dL (11.7-16.6); Lymphocytes # 2.8 10^3/uL (0.8-4.8); Lymphocytes % 33.7 %; Mean Corpuscular HGB Conc 32.4 g/dL (30.0-36.0); Mean Corpuscular Hemoglobin 29.6 pg (28.0-34.0); Mean Corpuscular Volume 91.3 fl (80-94); Monocytes # 0.6 10^3/uL (0.2-0.9); Monocytes % 7.5 %; Neutrophils # 4.62 10^3/uL (1.8-7.7); Neutrophils % 56.8 %; Nucleated Red Blood Cells % 0 %; Platelet Count 192 10^3/cmm (130-400); Red Blood Count 4.16 10^6/uL (4.1-5.3); Red Cell Distribution Width 13.9 % (12.1-15.1); White Blood Count 8.2 10^3/uL (4.0-10.0)
[2022-05-06 14:55] LABS: Alanine Aminotransferase 23 U/L (0-41); Albumin Level 4.1 g/dL (3.5-5.2); Alkaline Phosphatase 127 U/L (40-130); Anion Gap 15.1 (5-19); Aspartate Amino Transferase 38 U/L (0-40); Blood Urea Nitrogen 23 mg/dL (8-23); Calcium 8.8 mg/dL (8.5-10.5); Carbon Dioxide 27 mmol/L (22-29); Chloride 98 mmol/L (98-107); Globulin 2.9 g/dL (1.3-4.6); Glucose 177 mg/dL (65-115); Lactate Dehydrogenase 236 U/L (135-225); Osmolality Calculated 290 mOsm/kg (285-295); Potassium 4.1 mmol/L (3.5-5.1); Sodium 136 mmol/L (136-145); Total Bilirubin 0.3 mg/dL (0.15-1.2)
== END 2022-05-11 23:59 | disposition home or self-care (01) ==
PROVIDERS: PCP Family Medicine; Visit Provider Internal Medicine Hematology & Oncology
DX: C41.2 Malignant neoplasm of vertebral column (principal); C85.10 Unspecified B-cell lymphoma, unspecified site; Z79.899 Other long term (current) drug therapy; Z92.21 Personal history of antineoplastic chemotherapy
CPT/HCPCS: 36591; 80053; 83615; 85025; 99214

== ENCOUNTER 2022-06-15 12:58 | Outpatient (CLI) | payer OTHER, SELFPAY ==
--- NOTE | 2022-06-15 13:00 | CT_ITS ---
WS: [id number] CT CHEST, ABDOMEN, AND PELVIS TECHNIQUE: Noncontrast CT of the chest, abdomen, and pelvis with coronal and sagittal reformatted justin ges. CLINICAL INFORMATION: Follow Up COMPARISON: February 2022 May 30, 2021. PET/CT August 16, 2020. DLP: 1301.[address] scans at [facility] use at least one of these dose optimization techniques: automated e xposure control; mA and/or kV adjustment per patient size (includes targeted exams where dose is matc hed to clinical indication); or iterative reconstruction. CT CHEST: Both lungs are well aerated. No suspicious pulmonary parenchymal opacities. No focal pneumonia or ple ural fluid. Mild chronic emphysematous changes. Slight LEFT basilar atelectasis Mild aortic calcification. Normal thyroid gland. No axillary lymphadenopathy. Tiny esophageal hiatal hernia. Coronary calcification. Normal caliber thoracic aorta. No mediastinal or hilar lymphadenopath y. No axillary lymphadenopathy. Normal thoracic spine. CT ABDOMEN AND PELVIS: Normal noncontrast liver. Normal GE junction. Normal noncontrast pancreas. Noncontrast spleen is norm al. Adrenal glands are normal. No hydronephrosis in either kidney. No upper abdominal lymphadenopathy . Stable anny mesentery. Normal gallbladder. No periaortic or retroperitoneal lymphadenopathy. No pe lvic or inguinal lymphadenopathy. Sigmoid diverticulosis. No evidence of acute diverticulitis. No sofia dence of small or large bowel obstruction. Small fat- containing umbilical hernia. Disc space narrowi ng worse L5-S1 CT/[place] [id number] IMPRESSION: 1. No lymphadenopathy in the chest abdomen or pelvis. 2. No evidence of recurrent or progressed disease. 3. Small amount of haziness in the central mesentery consistent with anny me sentery . This is unchanged from the prior studies and was FDG negative on the prior PET/CT's 4. No other remarkable findings
== END 2022-06-15 12:59 | disposition home or self-care (01) ==
LOC: RAD 13:01
PROVIDERS: PCP Family Medicine; Visit Provider Internal Medicine Hematology & Oncology
DX: C41.2 Malignant neoplasm of vertebral column (principal); C85.10 Unspecified B-cell lymphoma, unspecified site
CPT/HCPCS: 71250; 74176

== ENCOUNTER 2022-08-05 13:30 | Oncology outpatient (recurring) (ONCR) | payer OTHER, SELFPAY ==
[2022-08-05 13:53] LABS: Basophils % 0.5 %; Eosinophils # 0.1 10^3/uL (0.0-0.8); Eosinophils % 1.6 %; Hematocrit 38.7 % (42.0-52.0); Hemoglobin 12.5 g/dL (11.7-16.6); Lymphocytes # 2.3 10^3/uL (0.8-4.8); Mean Corpuscular HGB Conc 32.3 g/dL (30.0-36.0); Mean Corpuscular Hemoglobin 29.6 pg (28.0-34.0); Mean Corpuscular Volume 91.7 fl (80-94); Mean Platelet Volume 9.3 fL (7.4-10.4); Monocytes # 0.7 10^3/uL (0.2-0.9); Neutrophils # 4.28 10^3/uL (1.8-7.7); Neutrophils % 57.6 %; Nucleated Red Blood Cells % 0 %; Platelet Count 179 10^3/cmm (130-400); Red Blood Count 4.22 10^6/uL (4.1-5.3); Red Cell Distribution Width 13.7 % (12.1-15.1); White Blood Count 7.4 10^3/uL (4.0-10.0)
[2022-08-05 14:06] LABS: Alanine Aminotransferase 21 U/L (0-41); Albumin Level 3.7 g/dL (3.5-5.2); Alkaline Phosphatase 114 U/L (40-130); Anion Gap 11.7 (5-19); Aspartate Amino Transferase 18 U/L (0-40); Blood Urea Nitrogen 25 mg/dL (8-23); Calcium 8.6 mg/dL (8.5-10.5); Carbon Dioxide 26 mmol/L (22-29); Chloride 102 mmol/L (98-107); Globulin 2.6 g/dL (1.3-4.6); Glucose 99 mg/dL (65-115); Lactate Dehydrogenase 162 U/L (135-225); Osmolality Calculated 286 mOsm/kg (285-295); Potassium 3.7 mmol/L (3.5-5.1); Sodium 136 mmol/L (136-145); Total Bilirubin 0.2 mg/dL (0.15-1.2); Total Protein 6.3 g/dL (6.6-8.7)
== END 2022-08-08 23:59 | disposition home or self-care (01) ==
PROVIDERS: Nurse Practitioner Family; PCP Family Medicine; Visit Provider Internal Medicine Hematology & Oncology
DX: Z08 Encounter for follow-up examination after completed treatment for malignant neoplasm (principal); Z85.72 Personal history of non-Hodgkin lymphomas; Z85.828 Personal history of other malignant neoplasm of skin; Z92.21 Personal history of antineoplastic chemotherapy; Z92.3 Personal history of irradiation; Z87.891 Personal history of nicotine dependence
CPT/HCPCS: 36591; 80053; 83615; 85025; 96523; 99213

== ENCOUNTER 2023-02-09 12:22 | Oncology outpatient (recurring) (ONCR) | payer OTHER, SELFPAY ==
[2023-02-09 12:33] VITALS: BP 145/74; PULSE 78; RESP 16; TEMP 36.9; O2SAT 93
[2023-02-09 12:59] LABS: Basophils % 0.4 %; Eosinophils # 0.4 10^3/uL (0.0-0.8); Eosinophils % 4.7 %; Hematocrit 38.6 % (37-53); Lymphocytes # 2.1 10^3/uL (0.8-4.8); Lymphocytes % 27.3 %; Mean Corpuscular HGB Conc 32.9 g/dL (30-55); Mean Corpuscular Hemoglobin 29.9 pg (27-33); Mean Corpuscular Volume 90.8 fl (82-101); Monocytes # 0.7 10^3/uL (0.2-0.9); Monocytes % 8.6 %; Neutrophils # 4.57 10^3/uL (1.8-7.7); Neutrophils % 58.6 %; Nucleated Red Blood Cells % 0 %; Platelet Count 206 10^3/cmm (157-399); Red Blood Count 4.25 10^6/uL (3.85-5.65); Red Cell Distribution Width 13.3 % (12.1-15.1)
[2023-02-09 13:34] LABS: Alanine Aminotransferase 24 U/L (0-41); Albumin Level 4.1 g/dL (3.5-5.2); Alkaline Phosphatase 135 U/L (40-130); Anion Gap 14.5 (5-19); Aspartate Amino Transferase 21 U/L (0-40); Blood Urea Nitrogen 21 mg/dL (8-23); Calcium 9.2 mg/dL (8.5-10.5); Carbon Dioxide 26 mmol/L (22-29); Chloride 97 mmol/L (98-107); Globulin 2.9 g/dL (1.3-4.6); Glucose 148 mg/dL (65-115); Lactate Dehydrogenase 209 U/L (135-225); Osmolality Calculated 282 mOsm/kg (285-295); Potassium 4.5 mmol/L (3.5-5.1); Sodium 133 mmol/L (136-145); Total Bilirubin 0.2 mg/dL (0.15-1.2)
== END 2023-03-10 23:59 | disposition home or self-care (01) ==
PROVIDERS: Nurse Practitioner Family; PCP Family Medicine; Visit Provider Internal Medicine Hematology & Oncology
DX: Z08 Encounter for follow-up examination after completed treatment for malignant neoplasm (principal); Z85.72 Personal history of non-Hodgkin lymphomas; Z85.828 Personal history of other malignant neoplasm of skin; Z92.21 Personal history of antineoplastic chemotherapy; Z92.3 Personal history of irradiation; Z87.891 Personal history of nicotine dependence; Z45.2 Encounter for adjustment and management of vascular access device; C41.2 Malignant neoplasm of vertebral column; C85.10 Unspecified B-cell lymphoma, unspecified site
CPT/HCPCS: 36591; 80053; 83615; 85025; 99214; J1642

== ENCOUNTER 2023-02-18 14:52 | Outpatient (CLI) | payer OTHER, SELFPAY ==
--- NOTE | 2023-02-18 14:59 | CTR_ITS ---
PROCEDURE INFORMATION: Exam: CT Chest Without Contrast; Diagnostic Exam date and time: 02/18/2023 4:07 PM Age: 77 years old Clinical indication: Condition or disease; Cancer; Primary cancer: B-cell lymphoma; Follow-up oncological assessment; Prior surgery; Surgery date: 6+ months; Surgery type: Prostate, port; Additional info: Surveillance TECHNIQUE: Imaging protocol: Diagnostic computed tomography of the chest without contrast. Radiation optimization: All CT scans at this facility use at least one of these dose optimization techniques: automated exposure control; mA and/or kV adjustment per patient size (includes targeted exams where dose is matched to clinical indication); or iterative reconstruction. REPORTING DATA: Count of CT and Cardiac NM exams in prior 12 months: This patient has received 2 known CTs and 0 known cardiac nuclear medicine studies in the 12 months prior to the current study. COMPARISON: [place] [id number] 06/15/2022 1:10 PM RADIATION DOSE METRICS: Total DLP (mGy-cm): 1340.45 FINDINGS: Tubes, catheters and devices: Left chest MediPort is unchanged. Lungs: There is a left lower lobe ground-glass density which is more conspicuous in the previous study. No suspicious pulmonary mass or nodule. Pleural spaces: Unremarkable. No pneumothorax. No pleural effusion. Heart: Stable heart size. Coronary arteries: Stable coronary artery atherosclerosis. Mediastinal space: There is minimal reflux of contrast into the lower thoracic esophagus consistent with GERD. Lymph nodes: No pathologic lymphadenopathy is seen in the chest. Subcentimeter mediastinal nodes are unchanged. Vasculature: Ectatic ascending aorta to 3.9 cm is unchanged. Bones/joints: No suspicious bony lesion. Soft tissues: Unremarkable. PROCEDURE INFORMATION: Exam: CT Abdomen And Pelvis Without Contrast Exam date and time: 02/18/2023 4:07 PM Age: 77 years old Clinical indication: Condition or disease; Cancer; Primary cancer: B-cell lymphoma; Follow-up oncological assessment; Prior surgery; Surgery date: 6+ months; Surgery type: Prostate, port; Additional info: Surveillance TECHNIQUE: Imaging protocol: Computed tomography of the abdomen and pelvis without contrast. Radiation optimization: All CT scans at this facility use at least one of these dose optimization techniques: automated exposure control; mA and/or kV adjustment per patient size (includes targeted exams where dose is matched to clinical indication); or iterative reconstruction. REPORTING DATA: Count of CT and Cardiac NM exams in prior 12 months: This patient has received 2 known CTs and 0 known cardiac nuclear medicine studies in the 12 months prior to the current study. COMPARISON: [place] [id number] 06/15/2022 1:10 PM RADIATION DOSE METRICS: Total DLP (mGy-cm): 1340.45 FINDINGS: Liver: Stable fatty liver. Gallbladder and bile ducts: Normal. No calcified stones. No ductal dilation. Pancreas: Normal. No ductal dilation. Spleen: Normal. No splenomegaly. Adrenal glands: Normal. No mass. Kidneys and ureters: Normal. No hydronephrosis. Stomach and bowel: Stool throughout the colon suggests constipation. No bowel obstruction. Appendix: Appendix not distinctly visualized with no secondary evidence of acute appendicitis. Intraperitoneal space: Unremarkable. No free air. No significant fluid collection. Vasculature: Stable atherosclerosis. Lymph nodes: Mild haziness of the central mesentery with associated subcentimeter lymph nodes is unchanged. None of these are pathologically enlarged by CT size criteria. No suspicious lymphadenopathy is visualized. Urinary bladder: Unremarkable as visualized. Reproductive: Unremarkable as visualized. Bones/joints: No suspicious bony lesion. Soft tissues: Small-sized fat containing umbilical hernia is unchanged. CT/[place] [id number] IMPRESSION: Left lower lobe ground-glass infiltrate or atelectasis is more conspicuous than previous. Correlate for infection. No adenopathy is seen in the chest. IMPRESSION: 1. No evidence of recurrent or metastatic disease. 2. Stable mild mistiness of the central mesentery with associated small lymph nodes.
[2023-02-18] MEDS: barium sulfate 450 mL Oral Susp PO (15:05)
== END 2023-02-18 14:53 | disposition home or self-care (01) ==
LOC: RAD 14:52
PROVIDERS: PCP Family Medicine; Visit Provider Nurse Practitioner Family
DX: C85.10 Unspecified B-cell lymphoma, unspecified site (principal); R91.8 Other nonspecific abnormal finding of lung field
CPT/HCPCS: 71250; 74176

== ENCOUNTER 2023-03-16 12:28 | Oncology outpatient (recurring) (ONCR) | payer OTHER, SELFPAY ==
[2023-03-16 12:47] VITALS: BP 139/74; PULSE 80; RESP 16; TEMP 36.8; O2SAT 96
== END 2023-04-10 23:59 | disposition home or self-care (01) ==
PROVIDERS: PCP Family Medicine; Visit Provider Internal Medicine Hematology & Oncology
DX: Z45.2 Encounter for adjustment and management of vascular access device
CPT/HCPCS: 96523; J1642

== ENCOUNTER 2023-04-27 11:15 | Oncology outpatient (recurring) (ONCR) | payer OTHER, SELFPAY | END 2023-05-11 23:59 | disposition home or self-care (01) | LOC: ONCMED 11:16 | PROVIDERS: PCP Family Medicine; Visit Provider Internal Medicine Hematology & Oncology | DX: Z45.2 Encounter for adjustment and management of vascular access device (principal) | CPT/HCPCS: 96523; J1642 ==

== ENCOUNTER 2023-05-25 12:53 | Outpatient (CLI) | payer OTHER, SELFPAY ==
--- NOTE | 2023-05-25 13:02 | MR_ITS ---
WS: [id number] MRI CERVICAL SPINE NONCONTRAST TECHNIQUE: Sagittal T1, T2 and STIR imaging. Axial T2, gradient, and fiesta imaging. CLINICAL INFORMATION: RADICULOPATHY,CSPINE REGION/CA OF THORACIC VERTEBRAL COLUMN COMPARISON: None. FINDINGS: Straightening of the normal cervical lordosis. Mild spondylitic changes. Disc bulging worse at C4-C5 C5-C6 and C6-C7. Slight anterolisthesis C6 on C7. Cord signal is normal. C2-C3: Mild facet arthropathy. Spinal canal and foramen are patent. C3-C4: Mild disc osteophytic ridging. Severe LEFT bony foraminal narrowing. Moderate facet arthropath y. Small amount of LEFT para-articular edema. RIGHT foramen is patent. C4-C5: Disc osteophyte complex with endplate ridging. Mild central canal stenosis with slight contact of the cervical cord. Advanced LEFT facet arthropathy. Severe LEFT and moderate RIGHT foraminal narr owing. C5-C6: Disc osteophyte complex with endplate ridging. Slight indentation cervical cord with mild cent ral canal stenosis. Severe LEFT bony foraminal narrowing. Moderate to severe RIGHT bony foraminal fabrizio rowing. Moderate to advanced facet arthropathy. C6-C7: Slight anterolisthesis. Mild bilateral bony foraminal narrowing LEFT greater than RIGHT. Moder ate LEFT facet arthropathy. Spinal canal is patent. C7-T1: Normal. Visualized brain stem structures: Normal. Prevertebral soft tissues: Normal. Small vessel changes in the [place]. IMPRESSION: 1. Straightening of the normal cervical lordosis with small disc osteophyte protrusions C4-C5 and C5 -C6 with mild central canal stenosis with slight contact of the cervical cord. 2. Moderate to advanced bony foraminal narrowing worse at LEFT C3-C4, LEFT C4-C5, LEFT greater than RIGHT C5-C6, 3. Moderate to advanced facet arthropathy worse at LEFT C3-C4, LEFT C4-C5, bilateral C5-C6 and LEFT C6-C7. 4. Small amount of periarticular edema about the LEFT C3 facet likely degenerative or inflammatory s ynovitis.
== END 2023-05-25 12:54 | disposition home or self-care (01) ==
PROVIDERS: PCP Family Medicine; Visit Provider Nurse Practitioner Family
DX: M47.22 Other spondylosis with radiculopathy, cervical region (principal); M48.02 Spinal stenosis, cervical region; M25.78 Osteophyte, vertebrae
CPT/HCPCS: 72141

== ENCOUNTER 2023-06-15 12:53 | Oncology outpatient (recurring) (ONCR) | payer OTHER, SELFPAY | END 2023-07-10 23:59 | disposition home or self-care (01) | PROVIDERS: PCP Family Medicine; Visit Provider Internal Medicine Hematology & Oncology | DX: Z45.2 Encounter for adjustment and management of vascular access device (principal) | CPT/HCPCS: 96523; J1642 ==

== ENCOUNTER 2023-08-09 13:00 | Oncology outpatient (recurring) (ONCR) | payer OTHER, SELFPAY | END 2023-08-09 23:59 | disposition home or self-care (01) | PROVIDERS: PCP Family Medicine; Visit Provider Internal Medicine Hematology & Oncology | DX: Z53.9 Procedure and treatment not carried out, unspecified reason (principal) | CPT/HCPCS: 96523 ==

== ENCOUNTER 2023-08-10 11:12 | Oncology outpatient (recurring) (ONCR) | payer OTHER, SELFPAY ==
[2023-08-10 11:29] LABS: Basophils % 0.2 %; Eosinophils # 0.2 10^3/uL (0.0-0.8); Eosinophils % 2.7 %; Hematocrit 40.6 % (37-53); Lymphocytes # 2.5 10^3/uL (0.8-4.8); Lymphocytes % 31.1 %; Mean Corpuscular HGB Conc 33.3 g/dL (30-55); Mean Corpuscular Hemoglobin 30.5 pg (27-33); Mean Corpuscular Volume 91.6 fl (82-101); Mean Platelet Volume 9.4 fL (7.4-10.4); Monocytes # 0.7 10^3/uL (0.2-0.9); Monocytes % 8.2 %; Neutrophils # 4.68 10^3/uL (1.8-7.7); Neutrophils % 57.6 %; Nucleated Red Blood Cells % 0 %; Platelet Count 177 10^3/cmm (157-399); Red Blood Count 4.43 10^6/uL (3.85-5.65); White Blood Count 8.14 10^3/uL (3.29-11.43)
[2023-08-10 11:49] LABS: Alanine Aminotransferase 28 U/L (0-41); Albumin Level 4.2 g/dL (3.5-5.2); Alkaline Phosphatase 122 U/L (40-130); Aspartate Amino Transferase 28 U/L (0-40); Blood Urea Nitrogen 18 mg/dL (8-23); Calcium 8.8 mg/dL (8.5-10.5); Carbon Dioxide 28 mmol/L (22-29); Chloride 101 mmol/L (98-107); Globulin 2.6 g/dL (1.3-4.6); Glucose 123 mg/dL (65-115); Lactate Dehydrogenase 193 U/L (135-225); Osmolality Calculated 291 mOsm/kg (285-295); Sodium 139 mmol/L (136-145); Total Bilirubin 0.3 mg/dL (0.15-1.2); Total Protein 6.8 g/dL (6.6-8.7)
== END 2023-09-09 23:59 | disposition home or self-care (01) ==
PROVIDERS: Nurse Practitioner Family; PCP Family Medicine; Visit Provider Internal Medicine Hematology & Oncology
DX: C85.10 Unspecified B-cell lymphoma, unspecified site
CPT/HCPCS: 36591; 80053; 83615; 85025; 99214

== ENCOUNTER 2023-09-21 09:58 | Oncology outpatient (recurring) (ONCR) | payer OTHER, SELFPAY ==
[2023-09-21] MEDS: alteplase 1 mg/mL SDV 2 mL 2 MG INTRACATH (10:33)
[2023-09-21 11:41] LABS: Basophils % 0.3 %; Eosinophils # 0.2 10^3/uL (0.0-0.8); Eosinophils % 1.9 %; Hematocrit 40.7 % (37-53); Lymphocytes # 2.2 10^3/uL (0.8-4.8); Lymphocytes % 27.6 %; Mean Corpuscular HGB Conc 32.7 g/dL (30-55); Mean Corpuscular Hemoglobin 30.2 pg (27-33); Mean Corpuscular Volume 92.3 fl (82-101); Mean Platelet Volume 9.2 fL (7.4-10.4); Monocytes # 0.8 10^3/uL (0.2-0.9); Monocytes % 9.4 %; Neutrophils # 4.84 10^3/uL (1.8-7.7); Neutrophils % 60.4 %; Nucleated Red Blood Cells % 0 %; Platelet Count 183 10^3/cmm (157-399); Red Blood Count 4.41 10^6/uL (3.85-5.65); Red Cell Distribution Width 13.6 % (12.1-15.1)
[2023-09-21 12:06] LABS: Alanine Aminotransferase 19 U/L (0-41); Albumin Level 4.1 g/dL (3.5-5.2); Alkaline Phosphatase 122 U/L (40-130); Aspartate Amino Transferase 19 U/L (0-40); Blood Urea Nitrogen 24 mg/dL (8-23); Calcium 9.4 mg/dL (8.5-10.5); Carbon Dioxide 28 mmol/L (22-29); Chloride 100 mmol/L (98-107); Creatinine Clr Calc Pharmacy 103.2996; Globulin 3.3 g/dL (1.3-4.6); Glucose 123 mg/dL (65-115); Osmolality Calculated 293 mOsm/kg (285-295); Sodium 139 mmol/L (136-145); Total Bilirubin 0.3 mg/dL (0.15-1.2); Total Protein 7.4 g/dL (6.6-8.7)
[2023-09-21 12:37] LABS: Lactate Dehydrogenase 179 U/L (135-225)
== END 2023-10-09 23:59 | disposition home or self-care (01) ==
PROVIDERS: Nurse Practitioner Family; PCP Family Medicine; Visit Provider Internal Medicine Medical Oncology
DX: C85.10 Unspecified B-cell lymphoma, unspecified site (principal); Z53.9 Procedure and treatment not carried out, unspecified reason; Z79.899 Other long term (current) drug therapy
CPT/HCPCS: 36415; 80053; 83615; 85025; 99213; J2997

== ENCOUNTER → 2023-11-08 13:18 | Outpatient (BNVA) | payer OTHER, SELFPAY | PROVIDERS: PCP Family Medicine; Visit Provider Thoracic Surgery (Cardiothoracic Vascular Surgery) | DX: I96 Gangrene, not elsewhere classified (principal); L97.821 Non-pressure chronic ulcer of other part of left lower leg limited to breakdown of skin | CPT/HCPCS: 97597; 97598; 99213 ==

== ENCOUNTER 2024-01-03 10:58 | Oncology outpatient (recurring) (ONCR) | payer OTHER, SELFPAY ==
[2023-12-20 12:23] LABS: Basophils % 0.4 %; Eosinophils # 0.1 10^3/uL (0.0-0.8); Eosinophils % 1.7 %; Hematocrit 40.6 % (37-53); Lymphocytes % 25.8 %; Mean Corpuscular HGB Conc 32.5 g/dL (30-55); Mean Corpuscular Hemoglobin 30.2 pg (27-33); Mean Corpuscular Volume 92.9 fl (82-101); Mean Platelet Volume 9.5 fL (7.4-10.4); Monocytes # 0.5 10^3/uL (0.2-0.9); Monocytes % 6.4 %; Neutrophils # 5.04 10^3/uL (1.8-7.7); Neutrophils % 65.6 %; Nucleated Red Blood Cells % 0 %; Platelet Count 194 10^3/cmm (157-399); Red Blood Count 4.37 10^6/uL (3.85-5.65); Red Cell Distribution Width 13.7 % (12.1-15.1); White Blood Count 7.68 10^3/uL (3.29-11.43)
[2023-12-20 13:34] LABS: Alanine Aminotransferase 18 U/L (0-41); Albumin Level 4.1 g/dL (3.5-5.2); Alkaline Phosphatase 122 U/L (40-130); Anion Gap 16.4 (5-19); Aspartate Amino Transferase 20 U/L (0-40); Blood Urea Nitrogen 21 mg/dL (8-23); Calcium 9.1 mg/dL (8.5-10.5); Carbon Dioxide 27 mmol/L (22-29); Chloride 98 mmol/L (98-107); Creatinine Clr Calc Pharmacy 82.3371; Glucose 132 mg/dL (65-115); Osmolality Calculated 291 mOsm/kg (285-295); Potassium 3.4 mmol/L (3.5-5.1); Sodium 138 mmol/L (136-145); Total Bilirubin 0.3 mg/dL (0.15-1.2); Total Protein 7.1 g/dL (6.6-8.7)
--- NOTE | 2024-01-03 11:27 | PETR_ITS ---
PROCEDURE INFORMATION: Exam: PET/CT Skull Base to Mid-thigh Exam date and time: 01/03/2024 12:14 PM Age: 78 years old Clinical indication: Condition or disease; Primary cancer: B cell lymphoma, malignant neoplasm of vertebral column; Follow-up oncological assessment; Prior surgery; Surgery date: 6+ months; Surgery type: Lumbar l4-l5-s1 laminectomy, port, prostate; Additional info: Pain at location of cancer at t7-t8, has significant allergy to iv contrast dye. LABS AND CLINICAL REPORTS: Glucose: 121 mg/dl Treatment strategy for malignancy (PET staging): Restaging (PS) TECHNIQUE: Imaging protocol: Following at least four-hour fasting and following the injection of radiopharmaceutical, low dose CT images were obtained. Then, PET images were obtained. Attenuation corrected images were constructed using the CT scan. Fused images of PET and CT were reviewed. The standardized uptake values (SUV) reported below are maximum values within a region of interest, expressed in gm/ml. Exam includes orbital meatal line to mid-thigh. Radiopharmaceutical: 10.14 mCi F-18 FDG (Fluorodeoxyglucose), IV. Time of imaging post radiopharmaceutical administration: 50 minutes Injection site: Left hand COMPARISON: 1. PT PET Scan 08/16/2020 9:47 AM 2. CR XR thoracic spine 2V [id number] 12/20/2023 2:[address] [place] [id number] 02/18/2023 4:07 PM FINDINGS: Tubes, catheters and devices: Left chest port terminates near the superior cavoatrial junction. Brain: Visualized brain has normal physiologic uptake. Pharynx: No abnormal uptake. Larynx: No abnormal uptake. Lungs, pleura and trachea: No abnormal uptake. Mild dependent atelectasis. Heart: Normal physiologic uptake. Coronary arteries: [id number] coronary artery calcification. Mediastinal space: No abnormal uptake. Diaphragm: Small hiatal hernia. Liver: No abnormal uptake. Gallbladder and biliary ducts: No abnormal uptake. Pancreas: No abnormal uptake. Spleen: No abnormal uptake. Adrenal glands: No abnormal uptake. Kidneys and ureters: Normal physiologic uptake. Fluid density photopenic right renal cyst. Stomach and bowel: No abnormal uptake. Colonic diverticulosis without findings of diverticulitis. Vasculature: No abnormal uptake. Moderate systemic atherosclerotic calcification without aortic aneurysm. Lymph nodes: FDG avid left inguinal lymph node measuring 1.4 cm on axial image 55 of series 202 shows FDG uptake with SUV max of 10.2. Nearby larger mildly irregular soft tissue density mass measuring 1.8 cm in AP dimension on axial image 60 of series 202 and approximately 5.7 x 1.7 cm on coronal image 176 of series [id number] shows FDG uptake with SUV max of 8.6. This likely represents enlarged lymph node. Skeleton: No aggressive osteolytic or blastic lesion, to include at the T8 vertebral body. Subcentimeter focus of FDG uptake at the rightward L2 vertebral body without underlying CT abnormality showing SUV max of 4.9 on axial image 179 of series 202. Couple additional small foci of lower level FDG uptake also at the L1 and L5 vertebral bodies also without underlying CT abnormality. Degenerative change along the axial and proximal appendicular skeletal system. Soft tissues: Low-level FDG uptake at bilateral gluteus medius musculature without underlying CT abnormality is likely physiologic or strain. Mild symmetric gynecomastia. Small fat containing umbilical and bilateral inguinal hernias. PET/PET skull to thigh SUBS [id number] IMPRESSION: 1. FDG avid enlarged left inguinal lymphadenopathy is nonspecific but concerning for lymphomatous involvement. Could also be metastatic disease, unlikely reactive. 2. Normal appearance of T8 vertebral body without FDG avidity or osteolytic lesion. 3. Few small foci of [id number] FDG uptake throughout the lumbar vertebral bodies (L2 greater than L1 and L5) without underlying CT abnormality are nonspecific but raise possibility of disease involvement. Consider further evaluation with lumbar spine MRI. 4. Additional chronic and incidental findings as above.
== END 2024-01-09 23:59 | disposition home or self-care (01) ==
LOC: RAD 10:58 → ONCMED 01-05 09:34
PROVIDERS: Nurse Practitioner Family; PCP Family Medicine; Visit Provider Internal Medicine Medical Oncology
DX: Z53.9 Procedure and treatment not carried out, unspecified reason (principal); C85.10 Unspecified B-cell lymphoma, unspecified site; C41.2 Malignant neoplasm of vertebral column; R59.1 Generalized enlarged lymph nodes; R93.7 Abnormal findings on diagnostic imaging of other parts of musculoskeletal system
CPT/HCPCS: 36591; 72070; 78815; 80053; 85025; 99214; A9552

== ENCOUNTER → 2024-01-11 10:54 | Outpatient (BNVA) | payer OTHER, SELFPAY | PROVIDERS: PCP Family Medicine; Referring Provider Nurse Practitioner Family; Visit Provider Internal Medicine | DX: E11.9 Type 2 diabetes mellitus without complications (principal); R21 Rash and other nonspecific skin eruption | CPT/HCPCS: 99204 ==

== ENCOUNTER 2024-02-01 14:30 | Oncology outpatient (recurring) (ONCR) | payer OTHER, SELFPAY ==
--- NOTE | 2024-02-01 14:30 | MR_ITS ---
WS: [id number] MRI LUMBAR SPINE NONCONTRAST HISTORY: Recommended on PET-CT COMPARISON: PET/CT 01/03/2024. Evaluate lumbar vertebral bodies for possible metastatic disease. Indet erminate PET/CT. TECHNIQUE: Sagittal and axial multisequence imaging is submitted. Patient allergic to gadolinium. Thoracic alignment is normal. On the T1 sequence there is no area of decreased signal intensity that can be seen with metastatic disease. L1 hemangioma. On the STIR sequence there is no edema. Schmorl's node defect inferior endplate of L4. Stable. Disc spaces and vertebral body heights are well-preserved. Conus terminates normally at L1-2 disc level. L1-L2: Normal. L2-L3: Mild annular disc bulging and facet disease. L3-L4: Mild annular disc bulging with ligamentum flavum and facet arthritis. Mild encroachment upon t he subarticular recesses. L4-L5: Mild annular disc bulging. LEFT paracentral disc protrusion is new with mild contact on the LE FT traversing L5 nerve root. Additional broad-based minimal RIGHT foraminal disc protrusion. Mild jessica tral, subarticular recess and RIGHT foraminal stenosis. L5-S1: Mild annular disc bulging. LEFT hemilaminectomy defect. Mild clumping of the nerve roots in th e thecal sac. Mild bilateral foraminal stenosis. Paravertebral soft tissues are normal. 1.5 cm RIGHT renal cyst. MR/MR lumbar spine wo con* [id number] IMPRESSION: 1. No suspicious areas within the vertebral bodies on this noncontrast lumbar MRI to suggest metastatic disease. Normal marrow signal. With the PET/CT findin gs of possible lumbar metastasis, follow-up PET/CT imaging should be considered for further evaluation in 3 months. 2. New LEFT paracentral disc protrusion at L4-5 slightly contacting the LEFT t raversing L5 nerve root. At L4-5 there is mild central, subarticular recess and RIGHT foraminal stenosis. 3. Mild bilateral foraminal stenosis at L5-S1 with a LEFT hemilaminectomy defe ct. 4. Mild disc encroachment upon the subarticular recesses at L3-4 is unchanged.
== END 2024-02-09 23:59 | disposition home or self-care (01) ==
LOC: RAD 14:56 → ONCMED 02-06 10:35
PROVIDERS: PCP Family Medicine; Visit Provider Internal Medicine Hematology & Oncology
DX: Z53.9 Procedure and treatment not carried out, unspecified reason (principal); C85.10 Unspecified B-cell lymphoma, unspecified site; R94.8 Abnormal results of function studies of other organs and systems; M47.896 Other spondylosis, lumbar region; M51.370 Other intervertebral disc degeneration, lumbosacral region with discogenic back pain only; M48.07 Spinal stenosis, lumbosacral region
CPT/HCPCS: 72148; 96523

== ENCOUNTER 2024-02-14 13:54 | Oncology outpatient (recurring) (ONCR) | payer OTHER, SELFPAY | END 2024-03-10 23:59 | disposition home or self-care (01) | PROVIDERS: PCP Family Medicine; Visit Provider Internal Medicine Hematology & Oncology | DX: Z45.2 Encounter for adjustment and management of vascular access device (principal) | CPT/HCPCS: 96523 ==

== ENCOUNTER 2024-03-15 11:49 | Oncology outpatient (recurring) (ONCR) | payer OTHER, SELFPAY ==
[2024-03-15 12:40] LABS: Basophils % 0.5 %; Eosinophils # 0.2 10^3/uL (0.0-0.8); Eosinophils % 1.9 %; Hematocrit 39.2 % (37-53); Lymphocytes # 2.2 10^3/uL (0.8-4.8); Lymphocytes % 27.6 %; Mean Corpuscular HGB Conc 32.7 g/dL (30-55); Mean Corpuscular Hemoglobin 30.5 pg (27-33); Mean Corpuscular Volume 93.6 fl (82-101); Mean Platelet Volume 9.2 fL (7.4-10.4); Monocytes # 0.6 10^3/uL (0.2-0.9); Monocytes % 7.8 %; Neutrophils % 61.8 %; Nucleated Red Blood Cells % 0 %; Platelet Count 177 10^3/cmm (157-399); Red Blood Count 4.19 10^6/uL (3.85-5.65); Red Cell Distribution Width 13.9 % (12.1-15.1); White Blood Count 7.78 10^3/uL (3.29-11.43)
[2024-03-15 13:03] LABS: Alanine Aminotransferase 19 U/L (0-41); Albumin Level 3.9 g/dL (3.5-5.2); Alkaline Phosphatase 114 U/L (40-130); Anion Gap 13.3 (5-19); Aspartate Amino Transferase 20 U/L (0-40); Blood Urea Nitrogen 20 mg/dL (8-23); Calcium 9.1 mg/dL (8.5-10.5); Carbon Dioxide 27 mmol/L (22-29); Chloride 102 mmol/L (98-107); Creatinine Clr Calc Pharmacy 102.7272; Glucose 132 mg/dL (65-115); Lactate Dehydrogenase 214 U/L (135-225); Osmolality Calculated 290 mOsm/kg (285-295); Potassium 4.3 mmol/L (3.5-5.1); Sodium 138 mmol/L (136-145); Total Bilirubin 0.3 mg/dL (0.15-1.2); Total Protein 6.9 g/dL (6.6-8.7)
== END 2024-04-10 23:59 | disposition home or self-care (01) ==
PROVIDERS: Nurse Practitioner Family; PCP Family Medicine; Visit Provider Internal Medicine Hematology & Oncology
DX: C85.10 Unspecified B-cell lymphoma, unspecified site (principal)
CPT/HCPCS: 36591; 80053; 83615; 85025; 99214

== ENCOUNTER 2024-04-09 09:49 | Outpatient (CLI) | payer OTHER, SELFPAY ==
[2024-04-09 10:36] LABS: Estmated Average Glucose 148; Hemoglobin A1C 6.8 % (4.0-6.0)
[2024-04-09 10:47] LABS: Alanine Aminotransferase 22 U/L (0-41); Albumin Level 4.2 g/dL (3.5-5.2); Alkaline Phosphatase 130 U/L (40-130); Aspartate Amino Transferase 23 U/L (0-40); Blood Urea Nitrogen 21 mg/dL (8-23); Calcium 9.5 mg/dL (8.5-10.5); Carbon Dioxide 26 mmol/L (22-29); Chloride 97 mmol/L (98-107); Chol HDL Ratio 2.79 mg/dL (1.0-5.00); Cholesterol 148 mg/dL (0-200); Globulin 3.1 g/dL (1.3-4.6); Glucose 112 mg/dL (65-115); HDL Cholesterol 53 mg/dL (60-100); LDL Cholesterol Calculated 85 mg/dL (50-129); Osmolality Calculated 286 mOsm/kg (285-295); Sodium 136 mmol/L (136-145); Total Bilirubin 0.2 mg/dL (0.15-1.2); Total Protein 7.3 g/dL (6.6-8.7); Triglycerides 49 mg/dL (0-150)
[2024-04-09 10:50] LABS: Creatinine Urine, Random 140 mg/dL (39-259); Microalbum Creatinine Ratio Ur 14 mg/dL (0-20); Microalbumin Random Urine 2 ug/dL (0-20)
== END 2024-04-09 09:50 | disposition home or self-care (01) ==
LOC: LAB 09:51
PROVIDERS: Internal Medicine; PCP Family Medicine; Visit Provider Family Medicine
DX: E11.9 Type 2 diabetes mellitus without complications (principal)
CPT/HCPCS: 36415; 80053; 80061; 82044; 83036

== ENCOUNTER → 2024-04-13 10:29 | Outpatient (BNVA) | payer OTHER, SELFPAY | PROVIDERS: PCP Family Medicine; Visit Provider Internal Medicine | DX: E11.9 Type 2 diabetes mellitus without complications (principal); E78.2 Mixed hyperlipidemia; E11.620 Type 2 diabetes mellitus with diabetic dermatitis; I10 Essential (primary) hypertension; E66.9 Obesity, unspecified | CPT/HCPCS: 99214 ==

== ENCOUNTER 2024-04-27 08:53 | Oncology outpatient (recurring) (ONCR) | payer OTHER, SELFPAY ==
--- NOTE | 2024-04-27 09:14 | PETR_ITS ---
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 Prior surgery: L4-L5 and L5-S1 laminectomy, prostatectomy. LABS AND CLINICAL REPORTS: Glucose: 98 mg/dl Treatment strategy for malignancy (PET staging): Restaging (PS) TECHNIQUE: Imaging protocol: Following at least four-hour fasting and following the injection of radiopharmaceutical, low dose CT images were obtained. Then, PET images were obtained. Attenuation corrected images were constructed using the CT scan. Fused images of PET and CT were reviewed. The standardized uptake values (SUV) reported below are maximum values within a region of interest, expressed in gm/ml. Exam includes orbital meatal line to mid-thigh. SUV normalization method: BodyWeight Radiopharmaceutical: 11.49 mCi F-18 FDG (Fluorodeoxyglucose), IV. Time of imaging post radiopharmaceutical administration: 60 minutes Injection site: left hand COMPARISON: PET skull to thigh SUBS 01/03/2024, 08/16/2020, 03/08/2020, 12/13/2019, 09/15/2019, 06/30/2019, MRI lumbar spine 02/01/2024, CT chest abdomen pelvis 02/18/2023 and 03/09/2022 FINDINGS: Tubes, catheters and devices: Port catheter placed via the left subclavian vein terminates in the cavoatrial junction. Brain: Normal physiologic uptake. Pharynx: No abnormal uptake. Larynx: No abnormal uptake. Lungs, pleura and trachea: No abnormal uptake. Heart: Unremarkable. Mediastinal space: No abnormal uptake. Liver: No abnormal uptake. Maximum uptake is 3.2 SUV. There is fatty liver. Gallbladder and biliary ducts: No abnormal uptake. No calcified gallstones. Pancreas: No abnormal uptake. Spleen: No abnormal uptake. No splenomegaly. Adrenal glands: No abnormal uptake. No nodules. Kidneys and ureters: Normal physiologic uptake. No hydronephrosis. Stomach and bowel: No abnormal uptake. Intraperitoneal and retroperitoneal spaces: No abnormal uptake. No ascites. Urinary bladder: Normal physiologic uptake. Reproductive: No abnormal uptake. Status post prostatectomy. Vasculature: No abnormal uptake. Lymph nodes: Persistent FDG avid left inguinal lymph nodes with the highest uptake of 13.1 SUV, previously 10.2 SUV on 01/03/2024 with no interval change in size. The largest elongated anterior inferior nodule measures about 5.3 x 1.8 cm stable since 01/03/2024 previously measuring 5 x 1.3 cm in 2022, 3.9 x 1.3 cm in 2021, 2.8 x 0.9 cm in 2020, and 2 x 0.8 cm in 2019. Higher than normal uptake was present in the same lymph node on multiple prior exams of 2019 measuring 5.7 SUV on 03/08/2020, 5.6 SUV on 12/13/2019, 4.1 SUV on 09/15/2019, 3.7 SUV on 06/30/2019. No FDG avid lymphadenopathy in the neck, chest, abdomen, pelvis, axillas and the right groin. Skeleton: No abnormal uptake in the visualized axial and appendicular skeleton. Specifically, there is no abnormal uptake in the lumbar spine. No suspicious lytic or sclerotic bone lesions. Soft tissues: No abnormal uptake in the visualized head, neck, chest, abdomen, pelvis, and extremities. PET/PET skull to thigh SUBS [id number] IMPRESSION: The only abnormal uptake persists within the left superficial inguinal lymph nodes currently measuring 13.1 SUV versus 10.2 SUV on 01/03/2024 with no significant change in size since 2022, with more significant gradual slow change in size or time since 2019 when this node was normal in size with increased activity reaching 5.7 SUV on 03/08/2020. These nodes are accessible for biopsy if clinically warranted to evaluate for malignant versus benign reactive nature. No abnormal uptake in the bone including the lumbar spine.
== END 2024-05-11 23:59 | disposition home or self-care (01) ==
LOC: RAD 08:53 → ONCMED 04-30 09:21
PROVIDERS: PCP Family Medicine; Visit Provider Nurse Practitioner Family
DX: C41.2 Malignant neoplasm of vertebral column (principal); C85.10 Unspecified B-cell lymphoma, unspecified site; R94.8 Abnormal results of function studies of other organs and systems
CPT/HCPCS: 78815; 96523; A9552

== ENCOUNTER → 2024-05-21 08:03 | Outpatient (BNVA) | payer OTHER, SELFPAY | PROVIDERS: PCP Family Medicine; Visit Provider Student in an Organized Health Care Education/Training Program | DX: R59.9 Enlarged lymph nodes, unspecified (principal) | CPT/HCPCS: 99203 ==

== ENCOUNTER 2024-06-06 12:11 | Oncology outpatient (recurring) (ONCR) | payer OTHER, SELFPAY ==
--- NOTE | 2024-06-06 12:15 | US_ITS ---
WS: [id number] ULTRASOUND GUIDED BIOPSY LEFT INGUINAL LYMPH NODE x 2 HISTORY: left inguinal lymph node Procedure, risks, and complications are explained to the patient. Consent was obtained. Skin is cleansed with ChloraPrep and anesthetized with 1% buffered lidocaine. History: Patient with a history of B-cell lymphoma. Positive LEFT inguinal lymph nodes on the PET/CT of 04/27/2024. COMPARISON: PET/CT 04/27/2024, 08/03/2023 During initial scanning of the patient there are 2 lymph nodes that appear abnormal in the LEFT upper thigh. These correspond in size and location to the PET/CT findings. Both of these lymph nodes will be targeted. 1. Lymph node: This is the largest lymph node along the anterior upper thigh which is very irregular shape. Does not have a normal appearance of a lymph node but needs to be biopsied. This lymph node measures approximately 3.6 x 1.4 cm. Multiple core biopsies were performed. Core biopsies are placed in RPMI and also formalin. Majority of the samples are placed in RPMI due to the patient's history. No complications. 2. Lymph node: This is a smaller more hypoechoic lymph node with cortical thickening in the upper LEFT thigh but more medial. This lymph node measures 1.6 x 1.3 x 0.9 cm. Numerous core biopsies are performed. Biopsies are placed within both RPMI and formalin. Majority of the cores were placed in RPMI. No complications. Note: Discussed procedure with Luisa Jackson at the request of Mr. Carr. US/US biopsy lymph node [id number] IMPRESSION: 1. Uncomplicated ultrasound-guided biopsy of 2 lymph nodes in the upper LEFT t high. 2. Larger lymph node is along the anterior upper thigh. This does correspond t o the PET/CT findings. 3. Smaller lymph node along the medial upper LEFT thigh. This lymph node appea red abnormal by ultrasound.
--- NOTE | 2024-06-06 13:15 | US_ITS ---
WS: [id number] ULTRASOUND GUIDED BIOPSY LEFT INGUINAL LYMPH NODE x 2 HISTORY: left inguinal lymph node Procedure, risks, and complications are explained to the patient. Consent was obtained. Skin is cleansed with ChloraPrep and anesthetized with 1% buffered lidocaine. History: Patient with a history of B-cell lymphoma. Positive LEFT inguinal lymph nodes on the PET/CT of 04/27/2024. COMPARISON: PET/CT 04/27/2024, 08/03/2023 During initial scanning of the patient there are 2 lymph nodes that appear abnormal in the LEFT upper thigh. These correspond in size and location to the PET/CT findings. Both of these lymph nodes will be targeted. 1. Lymph node: This is the largest lymph node along the anterior upper thigh which is very irregular shape. Does not have a normal appearance of a lymph node but needs to be biopsied. This lymph node measures approximately 3.6 x 1.4 cm. Multiple core biopsies were performed. Core biopsies are placed in RPMI and also formalin. Majority of the samples are placed in RPMI due to the patient's history. No complications. 2. Lymph node: This is a smaller more hypoechoic lymph node with cortical thickening in the upper LEFT thigh but more medial. This lymph node measures 1.6 x 1.3 x 0.9 cm. Numerous core biopsies are performed. Biopsies are placed within both RPMI and formalin. Majority of the cores were placed in RPMI. No complications. Note: Discussed procedure with Luisa Jackson at the request of Mr. Carr. US/US biopsy lymph node [id number] IMPRESSION: 1. Uncomplicated ultrasound-guided biopsy of 2 lymph nodes in the upper LEFT t high. 2. Larger lymph node is along the anterior upper thigh. This does correspond t o the PET/CT findings. 3. Smaller lymph node along the medial upper LEFT thigh. This lymph node appea red abnormal by ultrasound.
[2024-06-11 07:20] LABS: Lymphoma Profile (BBPL) See Report
[2024-06-11 07:24] LABS: Lymphoma Profile (BBPL) See Report
== END 2024-06-08 23:59 | disposition home or self-care (01) ==
PROVIDERS: PCP Family Medicine; Visit Provider Student in an Organized Health Care Education/Training Program
DX: C41.2 Malignant neoplasm of vertebral column (principal); C85.10 Unspecified B-cell lymphoma, unspecified site; R94.8 Abnormal results of function studies of other organs and systems; Z45.2 Encounter for adjustment and management of vascular access device; R59.9 Enlarged lymph nodes, unspecified
CPT/HCPCS: 38505; 76942; 88184; 88185; 88305

== ENCOUNTER 2024-06-13 12:26 | Oncology outpatient (recurring) (ONCR) | payer OTHER, SELFPAY ==
[2024-06-13 12:54] LABS: Basophils % 0.3 %; Eosinophils # 0.1 10^3/uL (0.0-0.8); Eosinophils % 1.7 %; Hematocrit 40.8 % (37-53); Lymphocytes # 2.1 10^3/uL (0.8-4.8); Lymphocytes % 28.2 %; Mean Corpuscular HGB Conc 33.1 g/dL (30-55); Mean Corpuscular Hemoglobin 31.2 pg (27-33); Mean Corpuscular Volume 94.2 fl (82-101); Mean Platelet Volume 9.6 fL (7.4-10.4); Monocytes # 0.6 10^3/uL (0.2-0.9); Neutrophils # 4.65 10^3/uL (1.8-7.7); Neutrophils % 61.7 %; Nucleated Red Blood Cells % 0 %; Platelet Count 192 10^3/cmm (157-399); Red Blood Count 4.33 10^6/uL (3.85-5.65); Red Cell Distribution Width 13.2 % (12.1-15.1); White Blood Count 7.54 10^3/uL (3.29-11.43)
[2024-06-13 13:12] LABS: Alanine Aminotransferase 23 U/L (0-41); Albumin Level 4.1 g/dL (3.5-5.2); Alkaline Phosphatase 130 U/L (40-130); Aspartate Amino Transferase 19 U/L (0-40); Blood Urea Nitrogen 16 mg/dL (8-23); Calcium 9.3 mg/dL (8.5-10.5); Carbon Dioxide 27 mmol/L (22-29); Chloride 100 mmol/L (98-107); Glucose 80 mg/dL (65-115); Lactate Dehydrogenase 165 U/L (135-225); Osmolality Calculated 286 mOsm/kg (285-295); Sodium 138 mmol/L (136-145); Total Bilirubin 0.3 mg/dL (0.15-1.2); Total Protein 7.1 g/dL (6.6-8.7)
== END 2024-07-09 23:59 | disposition home or self-care (01) ==
PROVIDERS: Nurse Practitioner Family; PCP Family Medicine; Visit Provider Internal Medicine
DX: Z08 Encounter for follow-up examination after completed treatment for malignant neoplasm (principal); Z85.72 Personal history of non-Hodgkin lymphomas; Z95.828 Presence of other vascular implants and grafts; R59.0 Localized enlarged lymph nodes; E11.620 Type 2 diabetes mellitus with diabetic dermatitis; Z79.899 Other long term (current) drug therapy
CPT/HCPCS: 36591; 80053; 83615; 85025; 99213

== ENCOUNTER 2024-07-10 06:00 | Oncology outpatient (recurring) (ONCR) | payer OTHER, SELFPAY | END 2024-08-08 23:59 | disposition home or self-care (01) | LOC: ONCMED 07-17 07:39 | PROVIDERS: PCP Family Medicine; Visit Provider Internal Medicine | DX: Z08 Encounter for follow-up examination after completed treatment for malignant neoplasm (principal); Z85.72 Personal history of non-Hodgkin lymphomas; Z95.828 Presence of other vascular implants and grafts; R59.0 Localized enlarged lymph nodes; E11.620 Type 2 diabetes mellitus with diabetic dermatitis; Z79.899 Other long term (current) drug therapy | CPT/HCPCS: 99214 ==

== ENCOUNTER 2024-07-20 13:11 | Outpatient (CLI) | payer OTHER, SELFPAY ==
[2024-07-20 13:52] LABS: Estmated Average Glucose 128; Hemoglobin A1C 6.1 % (4.0-6.0)
[2024-07-20 14:01] LABS: Alanine Aminotransferase 22 U/L (0-41); Albumin Level 4.2 g/dL (3.5-5.2); Alkaline Phosphatase 127 U/L (40-130); Anion Gap 17.5 (5-19); Aspartate Amino Transferase 28 U/L (0-40); Blood Urea Nitrogen 23 mg/dL (8-23); Calcium 9.5 mg/dL (8.5-10.5); Carbon Dioxide 25 mmol/L (22-29); Chloride 93 mmol/L (98-107); Chol HDL Ratio 2.94 mg/dL (1.0-5.00); Cholesterol 138 mg/dL (0-200); Globulin 3.6 g/dL (1.3-4.6); Glucose 107 mg/dL (65-115); HDL Cholesterol 47 mg/dL (60-100); LDL Cholesterol Calculated 72 mg/dL (50-129); LDL HDL Ratio 1.53 RATIO (0.00-3.22); Osmolality Calculated 278 mOsm/kg (285-295); Potassium 3.5 mmol/L (3.5-5.1); Sodium 132 mmol/L (136-145); Total Bilirubin 0.5 mg/dL (0.15-1.2); Total Protein 7.8 g/dL (6.6-8.7); Triglycerides 94 mg/dL (0-150)
[2024-07-20 15:38] LABS: Creatinine Urine, Random 146 mg/dL (39-259); Microalbum Creatinine Ratio Ur 7 mg/dL (0-20); Microalbumin Random Urine 1 ug/dL (0-20)
== END 2024-07-20 13:12 | disposition home or self-care (01) ==
LOC: LAB 13:12
PROVIDERS: PCP Family Medicine; Visit Provider Internal Medicine
DX: E11.9 Type 2 diabetes mellitus without complications (principal); E11.620 Type 2 diabetes mellitus with diabetic dermatitis; I10 Essential (primary) hypertension; E66.9 Obesity, unspecified
CPT/HCPCS: 36415; 80053; 80061; 82044; 83036

== ENCOUNTER 2024-08-09 14:38 | Oncology outpatient (recurring) (ONCR) | payer OTHER, SELFPAY | END 2024-09-08 23:59 | disposition home or self-care (01) | LOC: ONCMED 14:38 | PROVIDERS: PCP Family Medicine; Visit Provider Internal Medicine | DX: Z45.2 Encounter for adjustment and management of vascular access device (principal) | CPT/HCPCS: 96523 ==

== ENCOUNTER 2024-09-13 12:11 | Oncology outpatient (recurring) (ONCR) | payer OTHER, SELFPAY ==
[2024-09-13 12:43] LABS: Basophils % 0.2 %; Eosinophils % 0.2 %; Hematocrit 38.7 % (37-53); Lymphocytes # 3.6 10^3/uL (0.8-4.8); Lymphocytes % 29.4 %; Mean Corpuscular HGB Conc 32.8 g/dL (30-55); Mean Corpuscular Hemoglobin 30.4 pg (27-33); Mean Corpuscular Volume 92.6 fl (82-101); Mean Platelet Volume 9.2 fL (7.4-10.4); Monocytes # 0.8 10^3/uL (0.2-0.9); Monocytes % 6.6 %; Neutrophils # 7.64 10^3/uL (1.8-7.7); Neutrophils % 63.2 %; Nucleated Red Blood Cells % 0 %; Platelet Count 193 10^3/cmm (157-399); Red Blood Count 4.18 10^6/uL (3.85-5.65); Red Cell Distribution Width 13.5 % (12.1-15.1); White Blood Count 12.09 10^3/uL (3.29-11.43)
[2024-09-13 12:49] LABS: Erythrocyte Sedimentation Rate 16 mm/hr (0-10)
[2024-09-13 13:05] LABS: Alanine Aminotransferase 22 U/L (0-41); Albumin Level 3.8 g/dL (3.5-5.2); Alkaline Phosphatase 102 U/L (40-130); Anion Gap 14.7 (5-19); Aspartate Amino Transferase 29 U/L (0-40); Blood Urea Nitrogen 19 mg/dL (8-23); C Reactive Protein 3.1 mg/L (0.0-4.9); Carbon Dioxide 25 mmol/L (22-29); Chloride 103 mmol/L (98-107); Chol HDL Ratio 3.09 mg/dL (1.0-5.00); Cholesterol 136 mg/dL (0-200); Globulin 2.8 g/dL (1.3-4.6); Glucose 113 mg/dL (65-115); HDL Cholesterol 44 mg/dL (60-100); LDL Cholesterol Calculated 74 mg/dL (50-129); LDL HDL Ratio 1.68 RATIO (0.00-3.22); Lactate Dehydrogenase 158 U/L (135-225); Osmolality Calculated 291 mOsm/kg (285-295); Phosphorus 2.7 mg/dL (2.5-4.5); Potassium 3.7 mmol/L (3.5-5.1); Sodium 139 mmol/L (136-145); Total Bilirubin 0.3 mg/dL (0.15-1.2); Total Protein 6.6 g/dL (6.6-8.7); Triglycerides 89 mg/dL (0-150); Uric Acid 7.6 mg/dL (3.4-7.0)
[2024-09-13 13:07] LABS: Estmated Average Glucose 131; Hemoglobin A1C 6.2 % (4.0-6.0)
[2024-09-13 15:30] LABS: Creatinine Urine, Random 143 mg/dL (39-259); Microalbum Creatinine Ratio Ur 7 mg/dL (0-20); Microalbumin Random Urine 1 ug/dL (0-20)
[2024-09-14 08:40] LABS: Beta-2-Microglobulin 1.83 mg/L (< OR = 2.51)
== END 2024-10-08 23:59 | disposition home or self-care (01) ==
PROVIDERS: Internal Medicine; PCP Family Medicine; Visit Provider Internal Medicine
DX: Z08 Encounter for follow-up examination after completed treatment for malignant neoplasm (principal); Z85.72 Personal history of non-Hodgkin lymphomas; Z92.21 Personal history of antineoplastic chemotherapy; Z95.828 Presence of other vascular implants and grafts; E11.9 Type 2 diabetes mellitus without complications; R21 Rash and other nonspecific skin eruption
CPT/HCPCS: 36591; 80053; 80061; 82044; 82232; 83036; 83615; 84100; 84550; 85025; 85651; 86140; 96523; 99213

== ENCOUNTER 2024-10-03 11:04 | Outpatient (CLI) | payer OTHER, SELFPAY ==
[2024-10-03 12:00] LABS: Basophils % 0.4 %; Eosinophils # 0.1 10^3/uL (0.0-0.8); Eosinophils % 1.9 %; Hematocrit 39.7 % (37-53); Lymphocytes # 2.1 10^3/uL (0.8-4.8); Lymphocytes % 30.4 %; Mean Corpuscular HGB Conc 33.8 g/dL (30-55); Mean Corpuscular Hemoglobin 31.4 pg (27-33); Mean Platelet Volume 9.1 fL (7.4-10.4); Monocytes # 0.8 10^3/uL (0.2-0.9); Nucleated Red Blood Cells % 0 %; Platelet Count 196 10^3/cmm (157-399); Red Blood Count 4.27 10^6/uL (3.85-5.65); Red Cell Distribution Width 13.3 % (12.1-15.1)
[2024-10-03 12:23] LABS: Anion Gap 15.8 (5-19); Blood Urea Nitrogen 17 mg/dL (8-23); Calcium 9.6 mg/dL (8.5-10.5); Carbon Dioxide 26 mmol/L (22-29); Chloride 99 mmol/L (98-107); Glucose 121 mg/dL (65-115); Phosphorus 3.1 mg/dL (2.5-4.5); Potassium 3.8 mmol/L (3.5-5.1); Sodium 137 mmol/L (136-145)
[2024-10-03 12:29] LABS: Creatinine Urine, Random 164 mg/dL (39-259); Microalbum Creatinine Ratio Ur 6 mg/dL (0-20); Microalbumin Random Urine 1 ug/dL (0-20)
[2024-10-03 12:50] LABS: Parathyroid Hormone 38.6 pg/mL (15-65)
[2024-10-03 12:51] LABS: Calcium 9.4 mg/dL (8.5-10.5)
== END 2024-10-03 11:05 | disposition home or self-care (01) ==
LOC: LAB 11:05
PROVIDERS: PCP Family Medicine; Visit Provider Internal Medicine
DX: E11.9 Type 2 diabetes mellitus without complications (principal)
CPT/HCPCS: 36415; 80069; 82044; 82310; 83970; 85025

== ENCOUNTER → 2024-10-11 10:49 | Outpatient (BNVA) | payer OTHER, SELFPAY | PROVIDERS: PCP Family Medicine; Visit Provider Internal Medicine | DX: E11.620 Type 2 diabetes mellitus with diabetic dermatitis (principal); E66.9 Obesity, unspecified; I10 Essential (primary) hypertension | CPT/HCPCS: 99214 ==

== ENCOUNTER → 2024-11-29 09:11 | Outpatient (BNVA) | payer OTHER, SELFPAY | PROVIDERS: PCP Family Medicine; Visit Provider Internal Medicine | DX: E11.620 Type 2 diabetes mellitus with diabetic dermatitis (principal); I10 Essential (primary) hypertension; E66.9 Obesity, unspecified | CPT/HCPCS: 99214 ==

== ENCOUNTER 2024-12-06 12:52 | Oncology outpatient (recurring) (ONCR) | payer OTHER, SELFPAY | END 2024-12-09 23:59 | disposition home or self-care (01) | LOC: ONCMED 12:53 | PROVIDERS: PCP Family Medicine; Visit Provider Internal Medicine | DX: Z45.2 Encounter for adjustment and management of vascular access device (principal); Z95.828 Presence of other vascular implants and grafts | CPT/HCPCS: 96523 ==

== ENCOUNTER 2025-01-17 14:37 | Oncology outpatient (recurring) (ONCR) | payer OTHER, SELFPAY | END 2025-02-08 23:59 | disposition home or self-care (01) | LOC: ONCMED 14:37 | PROVIDERS: PCP Family Medicine; Visit Provider Internal Medicine | DX: Z45.2 Encounter for adjustment and management of vascular access device (principal); Z95.828 Presence of other vascular implants and grafts | CPT/HCPCS: 96523 ==

== ENCOUNTER 2025-02-28 14:24 | Oncology outpatient (recurring) (ONCR) | payer OTHER, SELFPAY | END 2025-03-10 23:59 | disposition home or self-care (01) | LOC: ONCMED 14:24 | PROVIDERS: PCP Family Medicine; Visit Provider Internal Medicine | DX: Z45.2 Encounter for adjustment and management of vascular access device (principal); Z95.828 Presence of other vascular implants and grafts ==